=== PATIENT | male | born 1950 | race Caucasian/White ===

== ENCOUNTER 2019-07-16 12:36 | Outpatient (CLI) | payer MEDICARE, SELFPAY | END 2019-07-16 12:37 | disposition home or self-care (01) | PROVIDERS: PCP Family Medicine; Visit Provider Family Medicine | DX: H90.41 Sensorineural hearing loss, unilateral, right ear, with unrestricted hearing on the contralateral side (principal); H90.72 Mixed conductive and sensorineural hearing loss, unilateral, left ear, with unrestricted hearing on the contralateral side | CPT/HCPCS: 92557; 92567 ==

== ENCOUNTER 2019-07-23 08:30 | Outpatient (CLI) | payer MEDICARE, SELFPAY ==
[2019-07-23 17:30] LABS: Basophils Percent Auto 0.8 % (0.2-1.2); Eosinophils Absolute Auto 0.3 K/mm3 (0-0.3); Eosinophils Percent Auto 5.1 % (0-4.4); Hematocrit 42.5 % (42.0-52.0); Hemoglobin 14.2 g/dL (14.0-18.0); Immature Granulocyte Absolute 0.01 K/mm3 (0.00-0.031); Immature Granulocyte Percent A 0.2 % (0-0.5); Lymphocytes Absolute Auto 1.83 K/mm3 (0.9-3.2); Lymphocytes Percent Auto 34.3 % (18.3-44.2); Mean Corpuscular HGB Conc 33.4 g/dl (32-36); Mean Corpuscular Hemoglobin 31.7 pg (26-34); Mean Corpuscular Volume 94.9 fl (80-100); Mean Platelet Volume 10.6 fl (7.4-10.4); Monocytes Absolute Auto 0.6 K/mm3 (0.1-0.6); Monocytes Percent Auto 10.5 % (2.6-8.5); Neutrophils Absolute Auto 2.6 K/mm3 (1.3-6.7); Neutrophils Percent Auto 49.1 % (45.5-73.1); Platelet Count Result 214 k/mm3 (150-375); Red Blood Count 4.48 M/mm3 (4.6-6.20); Red Cell Distribution Width 13.2 % (11.5-14.5); White Blood Count 5.3 K/mm3 (4.5-10.0)
[2019-07-23 17:39] LABS: Alanine Aminotransferase 20 U/L (4-50); Albumin Level 4.4 g/dL (3.5-5.1); Alkaline Phosphatase 70 U/L (38-126); Aspartate Amino Transferase 20 U/L (17-59); Bilirubin,Total 0.3 mg/dL (0.2-1.3); Blood Urea Nitrogen 19 mg/dL (9-20); Calcium 9.4 mg/dL (8.4-10.2); Carbon Dioxide 26 mmol/L (22-30); Chloride 100 mmol/L (98-107); Cholesterol 145 mg/dL (0-200); Estimated Glomerular Filt Rate > 60; Glucose 122 mg/dL (75-110); HDL Direct 36 mg/dL; Potassium 4.6 mmol/L (3.4-5.0); Sodium 140 mmol/L (137-145); Triglycerides 277 mg/dL (<150)
[2019-07-23 17:50] LABS: LDL Cholesterol Direct 57 mg/dL
== END 2019-07-23 08:31 | disposition home or self-care (01) ==
LOC: ANHBWCLAB 08:34
PROVIDERS: PCP Family Medicine; Visit Provider Family Medicine
DX: H93.19 Tinnitus, unspecified ear (principal); R89.9 Unspecified abnormal finding in specimens from other organs, systems and tissues; Z79.899 Other long term (current) drug therapy
CPT/HCPCS: 36415; 80053; 80061; 85025

== ENCOUNTER 2019-09-17 08:12 | Outpatient (CLI) | payer MEDICARE, SELFPAY ==
[2019-09-17 17:36] LABS: Prostate Specific Antigen 1.1 ng/mL (< OR = 4.0)
== END 2019-09-17 08:13 | disposition home or self-care (01) ==
LOC: ANHBWCLAB 08:16
PROVIDERS: PCP Family Medicine; Visit Provider Urology
DX: R97.20 Elevated prostate specific antigen [PSA] (principal)
CPT/HCPCS: 36415; 84153

== ENCOUNTER → 2020-02-21 11:32 | Outpatient (CLI) | payer MEDICARE, SELFPAY ==
--- NOTE | ~2020-02-21 | XR_ITS ---
EXAMINATION: XR knee LT 3V EXAM DATE: 02/21/2020 11:55 INDICATION: No known recent injury provided at this time. Pain of the left knee. TECHNIQUE: Three projections of the left knee. There is no prior study for comparison. FINDINGS: No evidence osteochondral defect or joint body in the left knee joint. There is mild tric ompartmental primary osteoarthritis. There are no acute fractures or dislocations identified. There is no subcutaneous gas. There is moderate-sized joint effusion. There are no radiopaque foreign ambrose dies. IMPRESSION: 1. Moderate-sized joint effusion. 2. Mild osteoarthritis. Reviewed, dictated and finalized at location A.
== END ==
PROVIDERS: PCP Family Medicine; Visit Provider Nurse Practitioner
DX: M25.562 Pain in left knee (principal); M25.462 Effusion, left knee; M17.12 Unilateral primary osteoarthritis, left knee
CPT/HCPCS: 73562

== ENCOUNTER 2020-07-17 09:11 | Outpatient (CLI) | payer MEDICARE, SELFPAY ==
[2020-07-17 18:47] LABS: Cholesterol 183 mg/dL (0-200); HDL Direct 38 mg/dL; Triglycerides 437 mg/dL (<150)
[2020-07-17 18:59] LABS: LDL Cholesterol Direct 56 mg/dL
== END 2020-07-17 09:12 | disposition home or self-care (01) ==
LOC: ANHBWCIMG 09:11 → ANHBWCLAB 09:13
PROVIDERS: PCP Family Medicine
DX: E78.2 Mixed hyperlipidemia (principal)
CPT/HCPCS: 36415; 80061

== ENCOUNTER 2021-02-23 11:06 | Outpatient (CLI) | payer MEDICARE, SELFPAY ==
--- NOTE | ~2021-02-23 | XR_ITS ---
EXAMINATION: XR ribs BI 3V w CXR 2V EXAM DATE: 02/23/2021 12:03 INDICATION: R07.81 - Pleurodynia TECHNIQUE: Frontal projection of the upper left ribs, frontal projection of the lower left ribs, obli que projection of the left ribs. Frontal projection of the upper right ribs, frontal projection of t he lower right ribs, oblique projection of the right ribs, frontal and lateral chest x-ray(s) for in terpretation. Comparison is made to prior examination from 05/07/2019. FINDINGS: There are no displaced acute rib fractures identified. Mild cardiomegaly. There are no ost eoblastic or osteolytic lesions identified. There is lumbar fusion hardware. Mild to moderate thoraci c spondylosis. No confluent consolidation, pneumothorax or pleural effusion suspected. IMPRESSION: Unremarkable chest x-ray, rib exam. Reviewed, dictated and finalized at location B.
[2021-02-23 21:20] LABS: Hematocrit 38.8 % (42.0-52.0); Hemoglobin 13.6 g/dL (14.0-18.0); Mean Corpuscular HGB Conc 35.1 g/dl (32-36); Mean Corpuscular Hemoglobin 33.8 pg (26-34); Mean Corpuscular Volume 96.5 fl (80-100); Mean Platelet Volume 10.8 fl (7.4-10.4); Platelet Count Result 199 k/mm3 (150-375); Red Blood Count 4.02 M/mm3 (4.6-6.20); Red Cell Distribution Width 12.1 % (11.5-14.5); White Blood Count 7.3 K/mm3 (4.5-10.0)
[2021-02-23 21:25] LABS: Add Urine Microscopic? YES; Appearance Urine Clear (Clear); Bilirubin Urine Negative (Negative); Blood Urine Negative (Negative); Color Urine Yellow (Yellow); Glucose Urine UA Negative (Negative); Ketones Urine Negative (Negative); Leukocyte Esterase Ur Negative LEU/UL (NEGATIVE); Mucus Urine Rare /lpf; Nitrate Urine Negative (Negative); Protein Urine 1+ mg/dL (Negative); RBC Urine 0-2 /hpf (0-2); Specific Grav Ur 1.019 (1.001-1.035); Urobilinogen Urine Negative mg/dL (<2.0); WBC Urine 0-3 /hpf (0-3)
[2021-02-23 21:35] LABS: Alanine Aminotransferase 49 U/L (4-50); Albumin Level 4.9 g/dL (3.5-5.1); Alkaline Phosphatase 66 U/L (38-126); Anion Gap 9 mmol/L (8-16); Aspartate Amino Transferase 53 U/L (17-59); Bilirubin,Total 0.4 mg/dL (0.2-1.3); Blood Urea Nitrogen 20 mg/dL (9-20); Calcium 9.8 mg/dL (8.4-10.2); Carbon Dioxide 24 mmol/L (22-30); Chloride 106 mmol/L (98-107); Cholesterol 218 mg/dL (0-200); Estimated Glomerular Filt Rate > 60; Glucose 96 mg/dL (65-110); Potassium 4.7 mmol/L (3.4-5.0); Sodium 139 mmol/L (137-145)
[2021-02-23 21:37] LABS: Triglycerides 644 mg/dL (<150)
[2021-02-23 21:40] LABS: Hemoglobin A1C 6.2 % (<5.7)
[2021-02-23 22:00] LABS: Prostate Specific Antigen 0.7 ng/mL (< OR = 4.0)
[2021-02-23 22:13] LABS: LDL Cholesterol Direct 48 mg/dL
== END 2021-02-23 11:07 | disposition home or self-care (01) ==
PROVIDERS: PCP Family Medicine; Visit Provider Family Medicine
DX: E11.9 Type 2 diabetes mellitus without complications (principal); R97.20 Elevated prostate specific antigen [PSA]; E78.5 Hyperlipidemia, unspecified; M25.562 Pain in left knee; R07.81 Pleurodynia; Z12.5 Encounter for screening for malignant neoplasm of prostate
CPT/HCPCS: 36415; 71046; 71110; 80053; 80061; 81001; 83036; 84153; 85027; G0103

== ENCOUNTER 2021-02-23 13:33 | Outpatient (CLI) | payer MEDICARE, OTHER, SELFPAY ==
--- NOTE | ~2021-02-23 | CT_ITS ---
EXAMINATION: CT brain wo con EXAM DATE: 02/23/2021 14:03 INDICATION: R55 - Syncope and collapse. TECHNIQUE: Spiral CT of the head was performed without contrast. Axial, coronal and sagittal images were reviewed. The dose-length product (DLP) for this examination was 681.00 mGy-cm. The exposure w as tailored according to patient size, and iterative reconstruction (ASIR) was used as additional dos e reduction technique. There is no prior study for comparison. FINDINGS: There is no acute intraparenchymal hemorrhage. No evidence of intraparenchymal brain mass lesion. No evidence of acute infarction. Please note that initial head CT has limited sensitivity f or small or acute infarctions. There is mild periventricular and subcortical hypodensity, nonspecific but probably related to small vessel ischemic disease. There is intracranial carotid arteriosclero sis. There are no extra-axial collections. There is no mass effect or midline shift. Patient has h ad bilateral ocular lens surgery. Small right frontal scalp contusion. There is mild to moderate rig ht maxillary, mild left maxillary and bilateral ethmoid mucoperiosteal thickening. The mastoid air ce lls appear well aerated. IMPRESSION: 1. Small right frontal scalp contusion. 2. Chronic age related findings. Reviewed, dictated and finalized at location B.
--- NOTE | 2021-02-23 13:54 | ECG_ITS ---
Measurements Intervals [place] Rate: 65 P: 64 NV: 266 QRS: 23 QRSD: 141 T: 25 QT: 425 QTc: 444 Interpretive Statements SINUS RHYTHM WITH FIRST DEGREE AV BLOCK RIGHT BUNDLE BRANCH BLOCK ABNORMAL ECG Electronically Signed On 02-23-2021 14:40:44 CDT by Elijah Simms D.O.
== END 2021-02-23 13:34 | disposition home or self-care (01) ==
LOC: ANHIMG 13:36
PROVIDERS: PCP Family Medicine; Visit Provider Family Medicine
DX: R55 Syncope and collapse (principal); S09.90XA Unspecified injury of head, initial encounter; X58.XXXA Exposure to other specified factors, initial encounter; I45.10 Unspecified right bundle-branch block
CPT/HCPCS: 36415; 70450; 71046; 71110; 80053; 80061; 81001; 83036; 84153; 85027; 93005; G0103

== ENCOUNTER 2021-07-15 07:46 | Outpatient (CLI) | payer MEDICARE, SELFPAY ==
[2021-07-15 20:12] LABS: Triglycerides 886 mg/dL (<150)
[2021-07-15 20:14] LABS: LDL Cholesterol Direct 46 mg/dL
[2021-07-15 20:28] LABS: Hematocrit 42.3 % (42.0-52.0); Hemoglobin 14.2 g/dL (14.0-18.0); Mean Corpuscular HGB Conc 33.6 g/dl (32-36); Mean Corpuscular Hemoglobin 33.8 pg (26-34); Mean Corpuscular Volume 100.7 fl (80-100); Mean Platelet Volume 10.9 fl (7.4-10.4); Platelet Count Result 195 k/mm3 (150-375); Red Cell Distribution Width 13.2 % (11.5-14.5); White Blood Count 6.2 K/mm3 (4.5-10.0)
[2021-07-15 20:37] LABS: Cholesterol 225 mg/dL (0-200)
[2021-07-15 21:05] LABS: Hemoglobin A1C 6.3 % (<5.7)
== END 2021-07-15 07:47 | disposition home or self-care (01) ==
LOC: ANHBWCLAB 07:51
PROVIDERS: PCP Family Medicine; Visit Provider Family Medicine
DX: E11.9 Type 2 diabetes mellitus without complications (principal); M25.562 Pain in left knee; N52.9 Male erectile dysfunction, unspecified
CPT/HCPCS: 36415; 80061; 83036; 85027

== ENCOUNTER 2021-12-13 08:00 | Outpatient (CLI) | payer MEDICARE, SELFPAY ==
[2021-12-13 21:29] LABS: Hemoglobin A1C 6.1 % (<5.7)
== END 2021-12-13 08:01 | disposition home or self-care (01) ==
PROVIDERS: PCP Family Medicine; Visit Provider Family Medicine
DX: E11.9 Type 2 diabetes mellitus without complications (principal)
CPT/HCPCS: 36415; 83036

== ENCOUNTER 2022-06-13 07:22 | Outpatient (CLI) | payer MEDICARE, SELFPAY ==
[2022-06-13 21:31] LABS: Hematocrit 39.6 % (42.0-52.0); Hemoglobin 13.2 g/dL (14.0-18.0); Mean Corpuscular HGB Conc 33.3 g/dl (32-36); Mean Corpuscular Hemoglobin 32.6 pg (26-34); Mean Corpuscular Volume 97.8 fl (80-100); Mean Platelet Volume 10.9 fl (7.4-10.4); Platelet Count Result 182 k/mm3 (150-375); Red Blood Count 4.05 M/mm3 (4.6-6.20); Red Cell Distribution Width 12.5 % (11.5-14.5); White Blood Count 4.8 K/mm3 (4.5-10.0)
[2022-06-13 21:43] LABS: Triglycerides 568 mg/dL (<150)
[2022-06-13 21:45] LABS: Alanine Aminotransferase 23 U/L (6-50); Albumin Level 4.4 g/dL (3.5-5.1); Alkaline Phosphatase 79 U/L (38-126); Anion Gap 8 mmol/L (8-16); Aspartate Amino Transferase 34 U/L (17-59); Bilirubin,Total 0.3 mg/dL (0.2-1.3); Blood Urea Nitrogen 20 mg/dL (9-20); Calcium 8.9 mg/dL (8.4-10.2); Carbon Dioxide 24 mmol/L (22-30); Chloride 107 mmol/L (98-107); Cholesterol 145 mg/dL (0-200); Estimated Glomerular Filt Rate 60; Glucose 166 mg/dL (65-110); HDL Direct 26 mg/dL; LDL Cholesterol Direct 35 mg/dL; Potassium 4.4 mmol/L (3.4-5.0); Sodium 139 mmol/L (137-145)
[2022-06-13 21:46] LABS: Hemoglobin A1C 6.3 % (<5.7)
[2022-06-13 22:24] LABS: Prostate Specific Antigen 1.3 ng/mL (< OR = 4.0)
[2022-06-13 22:54] LABS: MALB Creatinine Ratio 40.8 mg/g (0-30); Microalbumin Urine Random 53.5 mg/L (0-16.7)
== END 2022-06-13 07:23 | disposition home or self-care (01) ==
PROVIDERS: PCP Family Medicine; Visit Provider Family Medicine
DX: M25.562 Pain in left knee (principal); R97.20 Elevated prostate specific antigen [PSA]; E11.9 Type 2 diabetes mellitus without complications; Z12.5 Encounter for screening for malignant neoplasm of prostate
CPT/HCPCS: 36415; 80053; 80061; 82043; 83036; 84153; 85027; G0103

== ENCOUNTER 2022-06-23 07:37 | Outpatient (CLI) | payer MEDICARE, SELFPAY ==
--- NOTE | ~2022-06-23 | CT_ITS ---
EXAMINATION: CT lung screening DATE: 06/23/2022 07:59 INDICATION: smoking TECHNIQUE: Computed tomography (CT) of the chest was performed without intravenous contrast. Addition al 3D reconstructions utilizing coronal maximum intensity projection (MIP) were performed. Automated exposure control and iterative reconstruction technique were employed. The dose-length product was 21 2.01 mGy-cm. COMPARISON: None FINDINGS: There are few bilateral scattered small pulmonary nodules, the largest measuring 4 mm in both the lef t and right upper lobes. Diffuse mild bronchial wall thickening with a few scattered mucous plugs. Th is most prominent in the basilar left lower lobe where there is associated geographic region of tree- in-bud opacities and small regions of consolidation consistent with pneumonia. No pulmonary edema or pleural effusion. Heart size is normal. Atherosclerotic coronary artery calcific location. Dual-lead cardiac pacemaker with lead tips at the apex of the right ventricle and at the right atrial appendage . Very small pericardial effusion. Thoracic aorta is normal in caliber. No pathologically enlarged th oracic lymphadenopathy. Mild bilateral gynecomastia. Small sliding-type hiatal hernia. Visualized upp er abdomen is unremarkable. Mild to moderate thoracic spondylosis. IMPRESSION: 1. Lung-RADS category 2: Benign appearance or behavior. Continue annual screening with noncontrast lo w-dose chest CT in 12 months. Reviewed, dictated and finalized at location A. TABLE ENGINEER IMPRESSION: 1. Lung-RADS category 2: Benign appearance or behavior. Continue annual screeni ng with noncontrast low-dose chest CT in 12 months.
--- NOTE | ~2022-06-23 | US_ITS ---
Ultrasound of the Abdominal Aorta INDICATION: Abdominal aortic aneurysm, nicotine dependence TECHNIQUE: Grayscale, color Doppler, and pulsed Doppler images of the aorta and common iliac arteries were obtained. COMPARISON: None. FINDINGS: Maximum vascular dimensions are as follows: Proximal aorta: 2.3 cm Mid aorta: 2.8 cm Distal aorta: 1.8 cm Right common iliac artery: 1.0 cm Left common iliac artery: 1.1 cm There is no evidence of abdominal aortic aneurysm. IMPRESSION: No aortic aneurysm. Reviewed, dictated and finalized at location M. INE PLASTER MIXER IMPRESSION: No aortic aneurysm.
== END 2022-06-23 07:38 | disposition home or self-care (01) ==
LOC: ANHIMG 07:43
PROVIDERS: PCP Family Medicine; Visit Provider Family Medicine
DX: Z12.2 Encounter for screening for malignant neoplasm of respiratory organs (principal); Z87.891 Personal history of nicotine dependence; I71.9 Aortic aneurysm of unspecified site, without rupture
CPT/HCPCS: 71271; 76775

== ENCOUNTER 2022-11-07 13:48 | Outpatient (CLI) | payer MEDICARE, SELFPAY ==
--- NOTE | ~2022-11-07 | XR_ITS ---
XR lumbar spine 2-3V DATE: 11/07/2022 15:04 INDICATION: Postoperative lumbar spine TECHNIQUE: AP, lateral and coned lateral lumbosacral views COMPARISON: 07/05/2018 CT lumbar spine since 07/05/2018 FINDINGS: Since 07/05/2018 there is postoperative change of the lumbar spine including bilateral poste rior pedicle screws and rods and interbody spinal fusion at L3-L5. There remains mild grade 1 anterolisthesis at L4-5, which was present on 07/05/2018. There is moderately severe degenerative disc disease at L1-2, moderately increased in severity since 2019. L2-3 and L5-S1 disc spaces are relatively well preserved. Included lower thoracic and lumbar pedicles appear intact. The sacral iliac joints appear normal. IMPRESSION: Status post posterior and interbody spinal fusion at L3-L5 since 2018 Reviewed, dictated and finalized at location B.
== END 2022-11-07 13:49 | disposition home or self-care (01) ==
LOC: ANHBWCIMG 13:49
PROVIDERS: PCP Family Medicine; Visit Provider Nurse Practitioner
DX: I73.9 Peripheral vascular disease, unspecified (principal); Z98.890 Other specified postprocedural states; Z98.1 Arthrodesis status
CPT/HCPCS: 72100

== ENCOUNTER 2022-12-12 08:22 | Outpatient (CLI) | payer MEDICARE, SELFPAY ==
[2022-12-12 19:31] LABS: LDL Cholesterol Direct 38 mg/dL
[2022-12-12 19:33] LABS: Creatinine Urine 279.1 mg/dL; Hemoglobin A1C 6.2 % (<5.7)
[2022-12-12 19:35] LABS: MALB Creatinine Ratio 33.4 mg/g (0-30); Microalbumin Urine Random 93.2 mg/L (0-16.7)
[2022-12-12 19:40] LABS: Anion Gap 5 mmol/L (8-16); Blood Urea Nitrogen 20 mg/dL (9-20); Calcium 9.1 mg/dL (8.4-10.2); Carbon Dioxide 27 mmol/L (22-30); Chloride 104 mmol/L (98-107); Cholesterol 234 mg/dL (0-200); Estimated Glomerular Filt Rate 60; Glucose 122 mg/dL (65-110); Potassium 4.5 mmol/L (3.4-5.0); Sodium 136 mmol/L (137-145)
[2022-12-12 19:42] LABS: Triglycerides 835 mg/dL (<150)
== END 2022-12-12 08:23 | disposition home or self-care (01) ==
LOC: ANHBWCLAB 08:27
PROVIDERS: PCP Family Medicine; Visit Provider Nurse Practitioner Adult Health
DX: E11.9 Type 2 diabetes mellitus without complications (principal)
CPT/HCPCS: 36415; 80048; 80061; 82043; 83036

== ENCOUNTER 2022-12-16 04:30 | Outpatient (CLI) | payer MEDICARE, SELFPAY ==
--- NOTE | 2022-12-05 13:17 | PC.NURSE ---
Pre Radiology instructions Report to the outpatient anabel aaron on date 12/16/22 at time _0700 for procedure Time: _0900___ YOU MAY BE MONITORED AT HOSPITAL FOR UP TO 4 HOURS AFTER YOUR PROCEDURE. A visitor will be allowed to accompany the patient into the hospital. You and your visitor will be asked to self-screen and do not enter if you have any COVID symptoms. A mask is OPTIONAL within the hospital. Patients are to have no food or drink 6 hours prior to procedure time Driving will be restricted after the procedure, you must have a person to drive you home. Labs will be drawn in preop area and once reviewed, you will be taken to radiology area for procedure. When the procedure is completed, you will be taken to outpatient where you will be monitored for several hours. You may have one visitor in this area. Other than holding anti-coagulants, patient may take other medication(s) as scheduled. Prior to your appointment date patients are instructed to hold anti-coagulants after discussing with ordering provider to stop. If unable to discontinue anti-coagulants please notify radiologist. ? No aspirin or warfarin (Coumadin) for 7 days prior to the procedure. ? No clopidogrel (Plavix), ticagrelor (Brilinta), prasugrel (Effient) or dabigatran (Pradaxa) for 5 days prior to the procedure. ? No rivaroxaban (Xarelto), apixaban (Eliquis), dipyridamole (Aggrenox or Persantine) or cilostazol (Pletal) for 2 days prior to the procedure. Medications to discontinue per physician: _ASPIRIN 7 DAYS PRIOR TO PROCEDURE Date to take last dose: ___12/08/22 Please leave all valuables, including medications, at home the day of procedure. The hospital will not accept responsibility for valuables. Wear comfortable, loose fitting clothing.? Follow any additional instructions given to you from ordering provider. Telephone instructions given to __PATIENT and asked if any additional questions and then verbalized understanding. Patient advised to call scheduling provider office or registration scheduling [phone] if any additional questions.
[2022-12-05 13:23] VITALS: BMI 35.7
--- NOTE | ~2022-12-16 | CT_ITS ---
EXAMINATION: XR myelogram spine lumbosacral, CT lumbar spine w con DATE: 12/16/2022 09:18 INDICATION: History of vertebral disc degeneration TECHNIQUE: Informed consent was obtained from the patient. Risks and benefits including bleeding, i nfection, spinal headache and nerve root injury were discussed with the patient. The patient agreed t o proceed. Time out procedure was performed. Prior CT was reviewed and central pulmonary the level o f an L4 laminectomy defect was chosen. Standard sterile prep was done with Betadine. Entry site was infiltrated with 5 cc 1% lidocaine. A 3.5 22G spinal needle was then inserted into the spinal canal . 17 mL Omnipaque 180 were then injected into the thecal sac with intrathecal administration confirm ed with intermittent fluoroscopy. Frontal, lateral and left and right oblique fluoroscopic images were then acquired. The patient was then transferred to CT scan for spiral CT of the lumbar spine. Computed tomography (CT) of the lumba r spine was performed without intravenous contrast but with intrathecal contrast. Automated exposure control and iterative reconstruction technique were employed. The dose-length product was 1354.49 mGy -cm. Following this patient was transferred to the recovery area for 2 hours of observation. There ar e no immediate complications. Coronal and sagittal reformatted images of the lumbar spine CT were als o reviewed. FINDINGS: Postoperative change of prior L4 laminectomy and instrumented L3-L5 anterior and posterior spinal fus ion with bone graft cages at both levels and bilateral vertical stacia and pedicle screw fixation. There appears be a small amount of solid osseous fusion across the L3-L4 and L4-L5 disc spaces. A layering fluid contrast level is seen within a 2.3 x 2.1 x 1.7 cm extradural likely postoperative seroma at t he laminectomy defect likely resulting from some extravasation of contrast at the site of injection. 3 mm anterolisthesis L4 on L5. One-2 mm retrolisthesis L2 on L3. Alignment is otherwise normal. Verte bral body heights are normal. Interval progression of now moderate disc height loss at L1-L2 with Estefany morl's nodes and Modic type III sclerotic endplate changes anteriorly along the inferior endplate of L1. Mild disc height loss at L2-L3. The following disc levels are specifically discussed: T11-T12: Tiny left paracentral endplate osteophyte. There is mild bilateral facet joint osteoarthriti s. There is mild left neural foraminal stenosis. There is minimal central canal stenosis. T12-L1: The disc does not extend beyond the endplate margin. There is mild bilateral facet joint oste oarthritis. There is no neural foraminal stenosis. There is no central canal stenosis. L1-L2: Disc is bulging. There is mild bilateral facet joint osteoarthritis. There is mild right and m oderate left neural foraminal stenosis. There is mild to moderate central canal stenosis measuring 9 mm AP in the mid sagittal plane. L2-L3: The disc does not extend beyond the more posterior L2 inferior endplate margin. There is moder ate bilateral facet joint osteoarthritis. There is mild bilateral neural foraminal stenosis. There is moderate central canal stenosis. L3-L4: Anterior and posterior spinal fusion with hypertrophic change at the fused bilateral facet zuhair nts. There is mild left and mild to moderate right neural foraminal stenosis. There is mild central c anal stenosis. L4-L5: Anterior and posterior spinal fusion. Posterior decompression with L4 laminectomy and resectio n of the bilateral L4 inferior articular processes. There is no neural foraminal stenosis. There is n o central canal stenosis. L5-S1: Disc is minimally bulging. There is moderate left and mild to moderate right facet joint osteo arthritis. There is mild bilateral neural foraminal stenosis. There is no central canal stenosis. IMPRESSION: 1. Interval L4 laminectomy with combined instrume
[2022-12-16 07:05] VITALS: BP 136/60; PULSE 66; RESP 16; TEMP 36.2; O2SAT 98; BMI 36.0
[2022-12-16 07:49] LABS: Mean Platelet Volume 10.2 fl (7.4-10.4); Platelet Count Result 179 k/mm3 (150-375)
[2022-12-16 08:01] LABS: Prothrombin Time 13.1 Seconds (11.1-14.7)
[2022-12-16 09:12] VITALS: BP 136/63; PULSE 68; RESP 14; O2SAT 98
[2022-12-16 09:42] VITALS: BP 119/58; PULSE 66; RESP 15; O2SAT 97
[2022-12-16 09:49] LABS: Glucose Point of Care 120 mg/dl (65-105)
[2022-12-16 10:12] VITALS: BP 119/56; PULSE 66; RESP 16; O2SAT 97
[2022-12-16 10:40] VITALS: BP 118/61; PULSE 65; RESP 14
[2022-12-16 11:10] VITALS: BP 125/54; PULSE 69; RESP 15
== END 2022-12-16 11:17 | disposition home or self-care (01) ==
LOC: ANHSURGERY 04:31
PROVIDERS: PCP Family Medicine; Visit Provider Radiology Diagnostic Radiology
DX: M51.36 Other intervertebral disc degeneration, lumbar region (principal); M47.896 Other spondylosis, lumbar region; Z98.1 Arthrodesis status
CPT/HCPCS: 36415; 62304; 72132; 82948; 85049; 85610; Q9965; Q9967

== ENCOUNTER 2023-02-01 08:25 | Outpatient (CLI) | payer MEDICARE, SELFPAY ==
[2023-02-01 19:21] LABS: Cholesterol 152 mg/dL (0-200); HDL Direct 32 mg/dL; Triglycerides 468 mg/dL (<150)
[2023-02-01 19:32] LABS: LDL Cholesterol Direct 36 mg/dL
== END 2023-02-01 08:26 | disposition home or self-care (01) ==
PROVIDERS: PCP Family Medicine; Visit Provider Nurse Practitioner Adult Health
DX: E78.5 Hyperlipidemia, unspecified (principal)
CPT/HCPCS: 36415; 80061

== ENCOUNTER 2023-06-14 09:00 | Outpatient (CLI) | payer MEDICARE, SELFPAY ==
[2023-06-14 19:34] LABS: Anion Gap 10 mmol/L (8-16); Blood Urea Nitrogen 29 mg/dL (9-20); Calcium 9.5 mg/dL (8.4-10.2); Carbon Dioxide 25 mmol/L (22-30); Chloride 107 mmol/L (98-107); Cholesterol 137 mg/dL (0-200); Estimated Glomerular Filt Rate 59; Glucose 120 mg/dL (65-110); HDL Direct 33 mg/dL; Potassium 4.6 mmol/L (3.4-5.0); Sodium 142 mmol/L (137-145); Triglycerides 444 mg/dL (<150)
[2023-06-14 19:36] LABS: Hematocrit 41.1 % (42.0-52.0); Hemoglobin 13.3 g/dL (14.0-18.0); Mean Corpuscular HGB Conc 32.4 g/dl (32-36); Mean Corpuscular Hemoglobin 32.8 pg (26-34); Mean Corpuscular Volume 101.2 fl (80-100); Mean Platelet Volume 10.5 fl (7.4-10.4); Platelet Count Result 189 k/mm3 (150-375); Red Blood Count 4.06 M/mm3 (4.6-6.20); Red Cell Distribution Width 12.5 % (11.5-14.5); White Blood Count 6.3 K/mm3 (4.5-10.0)
[2023-06-14 19:45] LABS: LDL Cholesterol Direct 35 mg/dL
[2023-06-14 20:04] LABS: MALB Creatinine Ratio 29.2 mg/g (0-30); Microalbumin Urine Random 30.9 mg/L (0-16.7)
[2023-06-14 21:14] LABS: Hemoglobin A1C 6.7 % (<5.7)
== END 2023-06-14 09:01 | disposition home or self-care (01) ==
PROVIDERS: PCP Nurse Practitioner Adult Health; Visit Provider Nurse Practitioner Adult Health
DX: E11.9 Type 2 diabetes mellitus without complications (principal); I10 Essential (primary) hypertension
CPT/HCPCS: 36415; 80048; 80061; 82043; 83036; 85027

== ENCOUNTER 2023-08-30 06:51 | Outpatient (CLI) | payer MEDICARE, SELFPAY ==
--- NOTE | 2023-08-23 14:57 | PC.NURSE ---
Pre Radiology instructions Report to the outpatient anabel aaron on date _08/30/23____ at time __0700 for procedure Time: __0900__ YOU MAY BE MONITORED AT HOSPITAL FOR UP TO 4 HOURS AFTER YOUR PROCEDURE. A visitor will be allowed to accompany the patient into the hospital. You and your visitor will be asked to self-screen and do not enter if you have any COVID symptoms. A mask is OPTIONAL within the hospital. Patients are to have no food or drink 6 hours prior to procedure time Driving will be restricted after the procedure, you must have a person to drive you home. Labs will be drawn in preop area and once reviewed, you will be taken to radiology area for procedure. When the procedure is completed, you will be taken to outpatient where you will be monitored for several hours. You may have one visitor in this area. Other than holding anti-coagulants, patient may take other medication(s) as scheduled. Prior to your appointment date patients are instructed to hold anti-coagulants after discussing with ordering provider to stop. If unable to discontinue anti-coagulants please notify radiologist. ? No aspirin or warfarin (Coumadin) for 7 days prior to the procedure. ? No clopidogrel (Plavix), ticagrelor (Brilinta), prasugrel (Effient) or dabigatran (Pradaxa) for 5 days prior to the procedure. ? No rivaroxaban (Xarelto), apixaban (Eliquis), dipyridamole (Aggrenox or Persantine) or cilostazol (Pletal) for 2 days prior to the procedure. Medications to discontinue per physician: _ASPIRIN 7 DAYS PRE OP Date to take last dose: ___08/22/23 Please leave all valuables, including medications, at home the day of procedure. The hospital will not accept responsibility for valuables. Wear comfortable, loose fitting clothing.? Follow any additional instructions given to you from ordering provider. Telephone instructions given to ___PATIENT and asked if any additional questions and then verbalized understanding. Patient advised to call scheduling provider office or registration scheduling [phone] if any additional questions.
[2023-08-23 15:02] VITALS: BMI 36.4
[2023-08-30] VITALS (8 sets, daily range): BP systolic 103–139; BP diastolic 40–71; PULSE 63–70; RESP 16–18; TEMP 36.4; O2SAT 97–99
--- NOTE | ~2023-08-30 | XR_ITS ---
EXAMINATION: CT lumbar spine w con, XR myelogram spine lumbosacral DATE: 08/30/2023 10:10 INDICATION: Lumbar intervertebral disc degeneration TECHNIQUE: Informed consent was obtained from the patient. Risks and benefits including bleeding, infection, spi nal headache and nerve root injury were discussed with the patient. The patient agreed to proceed. Ti me out procedure was performed. Prior CT was reviewed and the skin posterior to the level of an L4 la minectomy defect was chosen. Standard sterile prep was done with Betadine. Entry site was infiltrated with 5 cc 1% lidocaine. A 3.5 22G spinal needle was then inserted into the spinal canal. 17 mL Omni paque 180 were then injected into the thecal sac with intrathecal administration confirmed with inter mittent fluoroscopy. Frontal, lateral and left and right oblique fluoroscopic images were then acquired. The patient was t hen transferred to CT scan for spiral CT of the lumbar spine. Computed tomography (CT) of the lumbar spine was performed without intravenous contrast but with intrathecal contrast. Automated exposure co ntrol and iterative reconstruction technique were employed. The dose-length product was 1475.66 mGy-c m. Following this patient was transferred to the recovery area for 2 hours of observation. There are no immediate complications. Coronal and sagittal reformatted images of the lumbar spine CT were also reviewed. COMPARISON: 12/16/2022 FINDINGS: Again seen are postoperative change of prior L4 laminectomy with combined L3-L5 anterior and posterio r spinal fusion with interbody fusion devices at both levels and with bilateral vertical stacia and pedi enedina screw fixations. There appears be a small amount of solid osseous fusion across the L3-L4 and L4- L5 disc spaces and bilateral facet joints. A layering fluid contrast level is seen within the unchang ed 2.3 x 2.1 x 1.7 cm extradural likely postoperative seroma at the laminectomy defect likely resulti ng from some extravasation of contrast at the site of injection. 3 mm anterolisthesis L4 on L5. 1-2 m m retrolisthesis L2 on L3. Alignment is otherwise normal. Vertebral body heights are normal. Continue d mild interval progression of now moderate to severe disc height loss at L1-L2 with also mild progre ssion of small Schmorl's nodes and Modic type III sclerotic endplate changes anteriorly along the inf erior endplate of L1. Unchanged mild disc height loss at L2-L3. Moderate disc height loss with degene rative endplate changes at T10-T11 which was not included on the prior field of imaging. The followin g disc levels are specifically discussed: T10-T11: The disc does not extend beyond the endplate margin. There is mild bilateral facet osteoarth ritis with some heterotopic ossification along the bilateral ligamentum flavum which results in mild central canal stenosis and mild right neural foraminal stenosis. T11-T12: Tiny left paracentral endplate osteophyte. Mild left ligamentum flavum hypertrophy with hete rotopic ossification. There is mild bilateral facet joint osteoarthritis. There is mild left neural f oraminal stenosis. There is minimal central canal stenosis. T12-L1: The disc does not extend beyond the endplate margin. There is mild bilateral facet joint oste oarthritis. There is no neural foraminal stenosis. There is no central canal stenosis. L1-L2: Disc is bulging. There is mild bilateral facet joint osteoarthritis. There is moderate bilater al neural foraminal stenosis. There is mild to moderate central canal stenosis measuring 9-10 mm AP i n the mid sagittal plane. L2-L3: The disc does not extend beyond the more posterior L2 inferior endplate margin. There is moder ate bilateral facet joint osteoarthritis with prominent hypertrophic changes and some associated hete rotopic ossicles including along the bilateral ligamentum flavum. There is mild bilateral neural fora eloy stenosis. There is moderate belle
[2023-08-30 08:46] LABS: Mean Platelet Volume 10.5 fl (7.4-10.4); Platelet Count Result 179 k/mm3 (150-375)
[2023-08-30 08:47] LABS: INR 1.1; Prothrombin Time 14.3 Seconds (11.1-14.7)
[2023-08-30 10:24] LABS: Glucose Point of Care 109 mg/dl (65-105)
== END 2023-08-30 12:16 | disposition home or self-care (01) ==
PROVIDERS: PCP Nurse Practitioner Adult Health; Referring Provider Neurological Surgery; Visit Provider Radiology Diagnostic Radiology
DX: S86.912A Strain of unspecified muscle(s) and tendon(s) at lower leg level, left leg, initial encounter (principal); X58.XXXA Exposure to other specified factors, initial encounter; M51.36 Other intervertebral disc degeneration, lumbar region
CPT/HCPCS: 36415; 62304; 72132; 82948; 85049; 85610; Q9965

== ENCOUNTER 2023-09-26 08:20 | Outpatient (CLI) | payer MEDICARE, SELFPAY ==
[2023-09-26 19:30] LABS: Prostate Specific Antigen 0.9 ng/mL (< OR = 4.0)
== END 2023-09-26 08:21 | disposition home or self-care (01) ==
PROVIDERS: PCP Nurse Practitioner Adult Health; Visit Provider Nurse Practitioner Adult Health
DX: Z12.5 Encounter for screening for malignant neoplasm of prostate (principal)
CPT/HCPCS: 36415; 84153; G0103

== ENCOUNTER 2023-12-14 08:04 | Outpatient (CLI) | payer MEDICARE, SELFPAY ==
[2023-12-14 19:43] LABS: Alanine Aminotransferase 19 U/L (6-50); Albumin Level 4.8 g/dL (3.5-5.1); Alkaline Phosphatase 67 U/L (38-126); Anion Gap 12 mmol/L (4-12); Aspartate Amino Transferase 44 U/L (17-59); Bilirubin,Total 0.5 mg/dL (0.2-1.3); Blood Urea Nitrogen 29 mg/dL (9-20); Calcium 9.3 mg/dL (8.4-10.2); Carbon Dioxide 22 mmol/L (22-30); Chloride 105 mmol/L (98-107); Cholesterol 122 mg/dL (0-200); Estimated Glomerular Filt Rate 50; Glucose 222 mg/dL (65-110); HDL Direct 32 mg/dL; Potassium 4.7 mmol/L (3.4-5.0); Sodium 139 mmol/L (137-145); Triglycerides 477 mg/dL (<150)
[2023-12-14 19:54] LABS: LDL Cholesterol Direct 36 mg/dL
[2023-12-14 20:06] LABS: Basophils Absolute Auto 0.1 K/mm3 (0.0-0.1); Basophils Percent Auto 0.9 % (0.2-1.2); Eosinophils Absolute Auto 0.5 K/mm3 (0-0.3); Eosinophils Percent Auto 7.2 % (0-4.4); Hematocrit 37.8 % (42.0-52.0); Hemoglobin 12.4 g/dL (14.0-18.0); Immature Granulocyte Absolute 0.02 K/mm3 (0.00-0.031); Immature Granulocyte Percent A 0.3 % (0-0.5); Lymphocytes Absolute Auto 1.74 K/mm3 (0.9-3.2); Lymphocytes Percent Auto 26.7 % (18.3-44.2); Mean Corpuscular HGB Conc 32.8 g/dl (32-36); Mean Corpuscular Hemoglobin 32.8 pg (26-34); Mean Platelet Volume 10.6 fl (7.4-10.4); Monocytes Absolute Auto 0.8 K/mm3 (0.1-0.6); Monocytes Percent Auto 11.8 % (2.6-8.5); Neutrophils Absolute Auto 3.5 K/mm3 (1.3-6.7); Neutrophils Percent Auto 53.1 % (45.5-73.1); Platelet Count Result 196 k/mm3 (150-375); Red Blood Count 3.78 M/mm3 (4.6-6.20); Red Cell Distribution Width 12.7 % (11.5-14.5); White Blood Count 6.5 K/mm3 (4.5-10.0)
[2023-12-14 20:23] LABS: Creatinine Urine 182.9 mg/dL
[2023-12-14 20:28] LABS: MALB Creatinine Ratio 19.1 mg/g (0-30); Microalbumin Urine Random 34.9 mg/L (0-16.7)
[2023-12-14 22:30] LABS: Hemoglobin A1C 6.7 % (<5.7)
== END 2023-12-14 08:05 | disposition home or self-care (01) ==
PROVIDERS: PCP Nurse Practitioner Adult Health; Visit Provider Nurse Practitioner Adult Health
DX: E11.9 Type 2 diabetes mellitus without complications (principal); I10 Essential (primary) hypertension
CPT/HCPCS: 36415; 80053; 80061; 82043; 82565; 83036; 85025

== ENCOUNTER 2024-01-05 08:39 | Outpatient (CLI) | payer MEDICARE, SELFPAY ==
--- NOTE | 2024-01-05 08:50 | ECG_ITS ---
Test Date: 2024-01-05 09:13:18 Measurements Intervals [place] Rate: 64 P: 202 FL: 265 QRS: -70 QRSD: 158 T: 106 QT: 426 QTc: 440 Interpretive Statements SINUS RHYTHM WITH FIRST-DEGREE AV BLOCK, ATRIAL SENSING AND VENTRICULAR PACING ELECTRONIC VENTRICULAR PACEMAKER ABNORMAL RHYTHM ECG No previous ECG available for comparison Electronically Signed On 01-05-2024 11:35:06 CDT by Kin Monroy M.D.
[2024-01-05 09:56] LABS: Prothrombin Time 13.5 Seconds (11.1-14.7)
[2024-01-05 09:57] LABS: Partial Thromboplastin Time 32.8 Seconds (22.3-36.8)
[2024-01-05 10:22] LABS: Add Urine Microscopic? NO; Appearance Urine Clear (Clear); Bilirubin Urine Negative (Negative); Blood Urine Negative (Negative); Color Urine Yellow (Yellow); Glucose Urine UA 3+ mg/dL (Negative); Ketones Urine Trace mg/dL (Negative); Leukocyte Esterase Ur Negative LEU/UL (Negative); Nitrate Urine Negative (Negative); Protein Urine Negative (Negative); Specific Grav Ur 1.035 (1.001-1.035)
== END 2024-01-05 08:40 | disposition home or self-care (01) ==
PROVIDERS: PCP Nurse Practitioner Adult Health; Visit Provider Neurological Surgery
DX: M48.07 Spinal stenosis, lumbosacral region (principal); I10 Essential (primary) hypertension; Z01.818 Encounter for other preprocedural examination
CPT/HCPCS: 36415; 81003; 85610; 85730; 86850; 86900; 86901; 93005

== ENCOUNTER 2024-01-09 14:20 | Inpatient (IN) | payer MEDICARE, SELFPAY ==
--- NOTE | 2024-01-04 15:33 | PC.NURSE ---
Report to the Outpatient Waiting Room, entrance under the green pavilion located off [facility], at time _8:00AM on date __01/09/24 . Planned Procedure Time: __1000 . Time changes happen often and if your time is changed the preop area will call you the afternoon before. - You and your visitor will be asked to self-screen and do not enter if you have any COVID symptoms. - A mask is optional within the hospital at this time. Patients may have clear liquids (water, carbonated beverages, clear teas, apple juice) until 3 hours prior to surgery(7:00AM) with a maximum of 20 ounces. - No food from midnight until time of surgery - Infants may have breast milk until 4 hours before surgery, infant formula 6 hours prior to surgery. - Children will be allowed to drink immediately following surgery. If applicable, please bring a bottle or sippy cup to assist with drinking. Juice, water, soda, and popsicles are readily available. For infants on formula, please bring formula the day of surgery. Pacifiers are allowed. Take the following medications with a SIP of water the morning of surgery: ____AMLODIPINE,CARVEDILOL DO NOT STOP ANY OF YOUR OTHER PRESCRIPTION MEDICATIONS PRIOR TO SURGERY ?EXCEPT THE FOLLOWING Medications to discontinue per physician ____PT STATES LAST DOSE ASPIRIN 01/01/24 PER PT . PT TO CALL DR NORTH REGARDING MELOXICAM____ Please no make-up, nail togolese, hairspray, perfume, deodorant, or body powder the day of surgery. No jewelry (including any body piercings) or valuables the day of surgery, leave them at home. Please take a shower or bath the night before, or the morning of, surgery with an antibacterial soap. Wear comfortable, loose fitting clothing. Children are encouraged to wear pajamas. - Jewelry must be removed prior to entering the operating room. Rings and piercings that are not removed may be cut off. - The hospital will not accept responsibility for valuables. - Please leave all valuables, including medications, at home the day of surgery. If you are going home after surgery, a licensed lyft driver must drive you home. - NO public transportation without another adult if you receive anesthesia. - We recommend that an adult stay with you for 24 hours following discharge. - We also recommend that you do not drive, make important decision, drink alcoholic beverages, or take any drugs that were not prescribed by your health care provider for at least 24 hours after your discharge time. For Pediatric surgeries, we recommend two adults accompany the child home. Follow any additional instructions given to you from your surgeon. If you or anyone in your household have experienced Covid symptoms in the past week, please notify your surgeon or the nurse liaison at the phone number below for possible testing. Telephone instructions given to __PATIENT and asked if any additional questions and then verbalized understanding. Patient advised to call surgeon office or pre surgery nurse liaison [phone] if any additional questions.
[2024-01-04 15:48] VITALS: BMI 35.9
[2024-01-09] VITALS (14 sets, daily range): BP systolic 107–152; BP diastolic 56–93; PULSE 62–82; RESP 14–18; TEMP 36.1–36.7; O2SAT 97–100; BMI 36.0
--- NOTE | ~2024-01-09 | XR_ITS ---
EXAMINATION: XR fluoroscopy no charge DATE: 01/09/2024 10:30 CDT INDICATION: L2-3 POSTERIOR LUMBAR INTERBODY FUSION, REVISION . TECHNIQUE: 3 fluoroscopic images of the lumbar spine were obtained during L2-3 posterior lumbar inter body fusion, revision, performed by Nelson aMrion MD. I was not present during the procedure. Fl uoroscopy exposure time was 3.8 seconds. Air Kerma 3.8180 mGy. DAP 0.0757 mGym2. COMPARISON: None FINDINGS/IMPRESSION: Fluoroscopic documentation of L2-3 posterior lumbar interbody fusion, revision. Please refer to the o perative note for complete procedural details . Reviewed, dictated and finalized at location K.
[2024-01-09 08:18] LABS: Glucose Point of Care 166 mg/dl (65-105)
--- NOTE | 2024-01-09 09:37 | WPDANESEPPF ---
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 Patient Data Age: 73 Gender: M Height: 1.75 m Weight: 110.6 kg Last Vital Signs Temp 36.1 C L 01/09/24 08:42 Pulse 68 01/09/24 08:42 Resp 18 01/09/24 08:42 BP 140/79 01/09/24 08:42 Pulse Ox 100 01/09/24 08:42 Allergies Allergy/AdvReac Type Severity Reaction Status Date / Time No Known Allergies Allergy Verified 01/09/24 08:33 Home Medications Medication Instructions Recorded Confirmed Type aspirin 81 mg tablet,delayed 81 mg PO DAILY 04/23/19 01/04/24 History release (Adult Low Dose Aspirin) blood sugar diagnostic (Contour #100 ea 10/29/20 12/14/23 Rx Next Test Strips) icosapent ethyl 1 gram capsule 2 g PO BID #120 caps 08/12/21 01/04/24 Rx (Vascepa) rosuvastatin 20 mg tablet See Rx Instructions .Route 03/23/23 01/04/24 Rx .COMPLEX #90 tabs hydrochlorothiazide 25 mg tablet See Rx Instructions .Route 05/11/23 01/04/24 Rx .COMPLEX #90 tabs lisinopril 40 mg tablet See Rx Instructions .Route 08/16/23 01/04/24 Rx .COMPLEX #90 tabs amlodipine 10 mg tablet 10 mg PO DAILY #90 tabs 10/10/23 01/04/24 Rx carvedilol 25 mg tablet 25 mg PO Q12H #180 tabs 10/10/23 01/04/24 Rx loratadine 10 mg tablet 10 mg PO DAILY #90 tabs 10/10/23 01/04/24 Rx metformin 500 mg tablet,extended See Rx Instructions .Route 11/06/23 01/04/24 Rx release 24 hr .COMPLEX #270 tabs meloxicam 15 mg tablet See Rx Instructions .Route 12/26/23 01/04/24 Rx .COMPLEX #90 tabs Laboratory Tests 01/09/24 08:15 POC Capillary Glucose 166 H mg/dl (65-105) Patient hx anesthesia problems: none Family hx anesthesia problems: none Results Review: All pre-operative results and documents have been reviewed as part of the pre-operative evaluation. [facility] Past Medical History Medical History (Updated 01/09/24 @ 09:38 by Spike Denson MD) Aorta aneurysm Diabetes Dyslipidemia Elevated PSA Hypertension Obesity Pacemaker Tinnitus Surgical History Surgical History History of back surgery Family History Family History Mother Breast cancer Cancer of unknown origin Grandparent Diabetes mellitus Sibling Diabetes mellitus Mother Family history of malignant neoplasm of uterus Family history of malignant neoplasm of breast in first degree relative Social History Social History Social History: Caffeine- occasionally coffee, tea Smoking packs per day: 0.5 Smoking cigarettes per day: 10.0 Years smoked: 50 Smoking pack-years: 25.00 Smoking status: Former smoker Tobacco type: cigarettes Second hand tobacco smoke exposure: No Smoking end date: 09/04/23 Alcohol intake: current Drinks per week: 1 Alcohol use details: monthly Substance use: never Substance use type: does not use Do You Feel Safe in your Home?: Yes Lack of Transportation: No Lack of Food: Never True Current Housing: I Have Housing Concerned About Future Housing: No Difficulty Paying Gas/Electric Bills: No Difficulty Paying for Meds: No Currently Unemployed: No Education: Don't Know Difficulty w/ Childcare or Family Care: No Living arrangements: with family Spiritual care concerns: No Anes - Eval Final PreProcedure Day of Procedure 01/09/24 09:37 Patient weight: obese Heart: regular rate and rhythm Lungs: clear to auscultation Airway: Mallampati scale class II Neurological: alert and oriented Last oral intake: >/= 8 hours ASA classification: IV Emergent: no Anesthet
[2024-01-09] MEDS: LACTATED RINGERS 1,000 ML 30 ML IV CONT (09:40)
--- NOTE | 2024-01-09 09:56 | PM.IMHP ---
H&P: HPI History of Present Illness Date/Time: 01/09/24 09:56 Chief Complaint: Back and leg pain Narrative: Musa is a 73-year-old gentleman who has pain in his low back that radiates down his right leg to the ankle. The pain is there basically all the time regardless of what he is doing but he states that the pain gets worse if he walks for a while and is relieved a little bit when he sits down, though the pain never completely goes away. His walking is limited by the discomfort; that is, he is not able to walk as far as he wants and instead states that he can't walk very far before the pain becomes too severe and he has to sit down and rest. He does not notice any specific muscle group weakness or dermatomal numbness in either lower extremity or anywhere else. He reports a history of a previous back operation which was done in [address] Rajesh Tay (Orthopedic Spine Surgery) at [facility] about 5-6 years ago. This surgery was helpful for him for a couple of years but the pain has since returned and is progressive. He does not recall a specific inciting event such as a fall or injury. He has seen a appliance painter and refinisher, specifically Dr. Sarahy Xie. He has seen Dr. Xie and undergone a right transforaminal epidural steroid injection at L5-S1.? He states that this gave him 70% relief for about 3 days.? His discomfort had since returned to its normal level.? He was functional but with discomfort.? He does seem to be worse if he has been standing for a long time or walking for distance.? Stationary standing especially at a counter seems to be the most provocation.? Since we saw him last he has experienced a fall.? This has resulted in increased pain in his back and his right lower extremity but now also extending to the left lower extremity.? The pain is worse and in different areas than it was before.? He does not report new specific muscle group weakness or dermatomal numbness or any new bowel or bladder difficulties. Review of Systems Review of Systems: Const Details: Const Details: Const Details: Const All systems reviewed & are unremarkable except as noted in HPI and below Denies chills, Denies fever(s), Denies frequent falls, Denies weakness, Denies weight gain and Denies weight loss Eyes Denies change in vision and Denies diplopia ENT Denies disequilibrium Card Denies chest pain and Denies dyspnea Resp Denies cough and Denies dyspnea GI Denies abdominal pain, Denies change in bowel habits, Denies fecal incontinence and Denies vomiting Denies hematuria, Denies oliguria, Denies difficulty urinating, Denies dysuria, Denies urinary frequency, Denies urinary hesitancy, Denies urinary incontinence and Denies urinary urgency Musc Reports as per HPI, Reports back pain, Denies muscle weakness, Denies numbness and Denies tingling Skin/ Breast Reports system reviewed and no additional complaints, except as documented Neuro Reports as per HPI, Denies frequent falls, Denies focal weakness, Denies numbness, Reports radicular pain, Denies tingling, Denies disequilibrium and Denies weakness Psych Reports no additional complaints, Denies depression and Denies hopelessness Endo Reports no additional complaints and Denies polyuria Stefan/ Lymph Reports no additional complaints Aller/ Immun Reports no additional complaints PMFSH Past Medical History Medical History (Updated 01/09/24 @ 09:38 by Spike Denson MD) Aorta aneurysm Diabetes Dyslipidemia Elevated PSA Hypertension Obesity Pacemaker Tinnitus Surgical History Surgical History History of back surgery Family History Family History Mother Breast cancer Cancer of unknown origin Grandparent Diabetes mellitus Sibling Diabetes mellitus Mother Family history of malignant neoplasm of uterus Fa
--- NOTE | 2024-01-09 09:59 | WPDHPUPDATE1 ---
History and Physical Update Update Date/Time: 01/09/24 09:59 History and Physical has been reviewed, including an updated exam of the patient. There are NO changes in the patient's condition. Risks, benefits, and alternatives have been discussed and questions answered. Patient agrees to proceed with procedure.
[2024-01-09] MEDS: ceFAZolin 2 GM/D5W 50 ML 2 GM/50 ML BAG IVPB (10:04)
[2024-01-09] MEDS: LIDO 1%/EPINEPHRINE 1:100,000 20 ML VIAL INFILTRATE (10:40)
[2024-01-09 13:18] LABS: Glucose Point of Care 201 mg/dl (65-105)
--- NOTE | 2024-01-09 13:21 | W.PM.PROC2 ---
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 He was then turned into the prone position on a Danilo frame. There operation on his back was examined, marked for incision, prepped and draped in routine sterile fashion. Incision was marked over the L2-5 spinous processes in the midline. This area was injected with 0.5% lidocaine with [id number] epinephrine. Intravenous antibiotics given prior to incision. Incision was made with a 10 blade scalpel down to the lumbodorsal fascia. A subperiosteal dissection of the muscle soft tissue away from spinous process lamina at L2-3 was performed with a subperiosteal elevator and Bovie cautery. Bovie cautery was used to uncover the instrumentation at L3 and L4 and the stacia in between. A verifying x-rays obtained to verify the level of operation. The L2 spinous process was removed with the Carmella rongeur. Kerrison punches, curved curette and a Leksell rongeur were used to remove lamina midline into the soft contents of the canal were encountered. Midas-Sudarshan drill was used to resect the pars bilaterally. The inferior articular process and facet of L2 could then be removed bilaterally. The spaces spinous process for free of soft tissue and morselized for later use as interbody autograft. Kerrison punches and curved curettes were used to define a plane with the dura and removed bone ligament flush with the pedicles and through the foramina widely decompressing the exiting nerve roots as well as the traversing nerve roots. To with the thecal sac retracted and protected the disc space was entered bilaterally using an 11 blade scalpel. Scrapers a very sizes, curettes a Veress configurations, pituitary rongeur and a rasp were used to remove as much cartilaginous endplate and disc material as possible down to bleeding cortical flat surfaces on the opposing bones. The disc space was incised and 14 mm interbody devices were chosen and filled with local autograft bone. The disc space was likewise filled with local autograft bone medially and anteriorly. The interbody devices were then placed with 2-3 mm countersink within the disc space bilaterally. Pedicle screw instrumentation was performed at L2 by observing and palpating the pedicle ankle was made and superior articular process above the pedicle using Midas Sudarshan drill. The pedicle was then cannulated with a pedicle probe, checked for continuity with ball probe, tapped with a 5.5 mm tap and 6.5 x 50 mm screw was placed in each pedicle. Lateral connectors were placed on the stacia between L3 and L4. 65 mm rods were placed between the lateral connector and the new L2 pedicle screw and secured position using the appropriate caps. These were definitively tightened with a torque and anti torque device. A verifying x-rays obtained to verify good position of the instrumentation which was confirmed. The wound was then copiously irrigated with bacitracin irrigation all bleeding stopped with bipolar cautery. A medium Hemovac drain was left in the subfascial position buried up to the inferior right of the incision. The wound was then closed in layered fashion with 2-0 Vicryl interrupted sutures in the lumbodorsal fascia and Tung's layer. 3-0 Vicryl buried interrupted sutures were placed in the dermis and skin was closed with a running 4-0 Monocryl subcuticular stitch and dressed with Dermabond. The patient was loud wake up in the operating r
[2024-01-09] MEDS: fentaNYL CITRATE INJ (*CRX) 100 MCG/2 ML VIAL 25 MCG IV PUSH ×2 (13:38→13:50)
--- NOTE | 2024-01-09 14:34 | PC.NURSE ---
This patient, Musa Amaya Sr., was admitted to Medical Room 255-01. Patient/family oriented to hospital policies and general routines including ID bracelet, bed and alarms, visiting hours, pain management, procedures, bathroom and other care routines, personal items, smoking policy, room service/diet, and visiting hours. Information on how to activate the Rapid Response Team has been discussed. Patient/Family are encouraged to report perceived risks to care and to ask questions if they do not understand what they are told or what they should do.
[2024-01-09] MEDS: HYDROcodone/acetaminophen (*CRX) 5-325 MG TABLET 1 TAB PO (16:56)
[2024-01-09] MEDS: OMEGA 3 POLYUNSAT FATTY ACIDS 1 GM CAP 2 GM PO (16:56)
[2024-01-09] MEDS: metFORMIN HCL XR 500 MG TAB.SR.24H 1000 MG PO (16:56)
[2024-01-09] MEDS: ceFAZolin 1 GM/NS 50 ML 1 GM/50 ML BAG IVPB (17:02)
[2024-01-09] MEDS: HYDROcodone/acetaminophen (*CRX) 10-325 MG TABLET 1 TAB PO (20:35)
[2024-01-09] MEDS: carvediloL 25 MG TABLET PO (20:36)
[2024-01-09] MEDS: DOCUSATE SODIUM 100 MG CAPSULE PO (20:36)
[2024-01-10 00:56] VITALS: BP 153/60; PULSE 68; RESP 18; TEMP 36.6; O2SAT 99
[2024-01-10] MEDS: ceFAZolin 1 GM/NS 50 ML 1 GM/50 ML BAG IVPB ×2 (01:11→09:08)
[2024-01-10 02:33] VITALS: PULSE 78; O2SAT 96
[2024-01-10 04:53] VITALS: BP 153/63; PULSE 78; RESP 18; TEMP 36.4; O2SAT 98
[2024-01-10] MEDS: HYDROcodone/acetaminophen (*CRX) 10-325 MG TABLET 1 TAB PO (08:05)
[2024-01-10 08:06] VITALS: PULSE 80
[2024-01-10] MEDS: carvediloL 25 MG TABLET PO (08:06)
[2024-01-10] MEDS: DOCUSATE SODIUM 100 MG CAPSULE PO (08:06)
[2024-01-10] MEDS: ROSUVASTATIN 20 MG TABLET BY MOUTH (08:06)
[2024-01-10] MEDS: LORATADINE 10 MG TABLET PO (08:06)
[2024-01-10] MEDS: OMEGA 3 POLYUNSAT FATTY ACIDS 1 GM CAP 2 GM PO (08:06)
[2024-01-10] MEDS: lisinopriL 20 MG TABLET 40 MG BY MOUTH (08:07)
[2024-01-10] MEDS: amLODIPine BESYLATE 10 MG TABLET PO (08:07)
[2024-01-10] MEDS: hydroCHLOROthiazide 25 MG TABLET BY MOUTH (08:07)
[2024-01-10] MEDS: metFORMIN HCL XR 500 MG TAB.SR.24H BY MOUTH (08:07)
--- NOTE | 2024-01-10 10:08 | WPDNEUROSGPN ---
Progress Note: A&P Assessment and Plan (1) Status post lumbar spinal fusion: Code(s): Z98.1 - Arthrodesis status Status: Acute Plan -Remove hemovac drain -Discharge home today -Follow up with Dr. Marion as scheduled Subjective Date/time seen: 01/10/24 10:08 Interval history: Doing very well today with some back stiffness but no significant pain. Denies pain or paresthesias in legs. Ambulating halls. Voiding independently. He wants to go home today. Review of Systems Review of Systems: All systems reviewed & are unremarkable except as noted in HPI and below Exam Narrative: AOx4 Full strength in lower extremities Sensation intact Dressing c/d/i Objective Data Vital Signs Vital Signs: Vital Signs - 24 hr 01/09/24 13:09 01/09/24 13:20 01/09/24 13:35 Temperature 97.4 F L Pulse Rate 70 68 68 Respiratory Rate 16 16 16 Blood Pressure 143/72 H 131/73 107/93 H Pulse Oximetry 100 100 100 Oxygen Delivery Simple Face Mask Simple Face Mask Room Air Oxygen Flow Rate 8 8 01/09/24 13:50 01/09/24 14:05 01/09/24 14:13 Temperature 97.4 F L Pulse Rate 78 68 66 Respiratory Rate 18 14 18 Blood Pressure 131/71 141/63 H 127/66 Pulse Oximetry 100 97 98 Oxygen Delivery Room Air Room Air Room Air Oxygen Flow Rate 01/09/24 14:40 01/09/24 14:55 01/09/24 15:05 Temperature 97.5 F L 97.7 F 98.0 F Pulse Rate 66 65 62 Respiratory Rate 16 17 16 Blood Pressure 140/60 138/56 L 130/61 Pulse Oximetry 98 98 98 Oxygen Delivery Oxygen Flow Rate 01/09/24 16:20 01/09/24 20:36 01/09/24 20:43 Temperature 97.8 F 97.8 F Pulse Rate 72 73 76 Respiratory Rate 17 18 Blood Pressure 141/63 H 152/59 H Pulse Oximetry 98 98 Oxygen Delivery Oxygen Flow Rate 01/09/24 21:30 01/10/24 00:56 01/09/24 20:18 Temperature 97.8 F Pulse Rate 82 68 Respiratory Rate 18 Blood Pressure 153/60 H Pulse Oximetry 97 99 Oxygen Delivery CPAP Room Air Oxygen Flow Rate 01/10/24 04:53 01/10/24 02:33 01/10/24 07:44 Temperature 97.5 F L Pulse Rate 78 78 Respiratory Rate 18 Blood Pressure 153/63 H Pulse Oximetry 98 96 Oxygen Delivery CPAP Room Air Oxygen Flow Rate 01/10/24 08:06 01/10/24 08:26 01/10/24 08:44 Temperature Pulse Rate 80 Respiratory Rate Blood Pressure Pulse Oximetry Oxygen Delivery Room Air CPAP Oxygen Flow Rate Intake/Output Intake/Output: Intake & Output 01/07/24 01/08/24 01/09/24 01/10/24 23:59 23:59 23:59 23:59 Intake Total 2940 50 Output Total 415 1390 Balance 2525 -7450 Meds/Results Medications: Active Medications Generic Name Dose Route Start Last Admin Trade Name Freq PRN Reason Stop Dose Admin Hydrocodone Bitart/Acetaminophen 1 tab 01/09/24 14:20 01/09/24 16:56 Hydrocodone/Acetaminophen (*Crx) 5-325 Mg Tablet PO 1 tab Q4H PRN Administration Mild Pain (1-3) Hydrocodone Bitart/Acetaminophen 1 tab 01/09/24 14:20 01/10/24 08:05 Hydrocodone/Acetaminophen (*Crx) 10-325 Mg Tablet PO 1 tab Q4H PRN Administration Moderate Pain (4-6) Al Hydrox/Mg Hydrox/Simethicone 20 ml 01/09/24 14:20 Mag Hydrox/Al Hydrox/Simeth 30 Ml Udc PO Q4H PRN Indigestion/Heartburn Amlodipine Besylate 10 mg 01/10/24 09:00 01/10/24 08:07 Amlodipine Besylate 10 Mg Tablet PO 10 mg DAILY LISA Administration Bisacodyl 10 mg 01/09/24 14:20 Bisacodyl 10 Mg Suppository RECTAL DAILY PRN Constipation Carvedilol 25 mg 01/09/24 21:00 01/10/24 08:06 Carvedilol 25 Mg Tablet PO 25 mg Q12HR LISA Administration Cyclobenzaprine HCl 10 mg 01/09/24 14:20 Cyclobenzaprine Hcl 10 Mg Tablet PO TID PRN Muscle Spasms Docusate Sodium 100 mg 01/09/24 21:00 01/10/24 08:06 Docusate Sodium 100 Mg Capsule PO 100 mg Q12HR LISA Administration Fish Oil 2 gm 01/09/24 17:00 01/10/24 08:06 [place] 3 Polyunsat Fatty Acids 1 Gm Cap PO 2 gm BID LIAS
--- NOTE | 2024-01-10 11:38 | WPDANESPN ---
Anes - Prog Note Post-Op Date/Time: 01/10/24 11:38 Cardiovascular status: normal Respiratory status: normal Airway patency: baseline Mental status: baseline Post-Op hydration status: normal Vital Signs: Last Vital Signs Temp 36.4 C L 01/10/24 04:53 Pulse 80 01/10/24 08:06 Resp 18 01/10/24 04:53 BP 153/63 H 01/10/24 04:53 Pulse Ox 98 01/10/24 04:53 O2 Del Method CPAP 01/10/24 08:44 O2 Flow Rate 8 01/09/24 13:20 Pain Score (VAS): 0 I/O: Intake & Output 01/09/24 01/10/24 01/10/24 23:59 07:59 15:59 Intake Total 290 50 360 Output Total 80 1390 Balance 210 -1340 360 01/09/24 13:14 POC Capillary Glucose 201 H Post-procedural complaints: none Patient Feedback: Patient satisfied with anesthetic care.
== END 2024-01-10 12:24 | disposition home or self-care (01) | DRG 460 ==
LOC: ANH2MED 01-10 10:07
PROVIDERS: Admitting Provider Neurological Surgery; PCP Nurse Practitioner Adult Health; Visit Provider Neurological Surgery
PROC: 0SG00AJ Fusion of Lumbar Vertebral Joint with Interbody Fusion Device, Posterior Approach, Anterior Column, Open Approach (ICD-10-PCS; CPT 22612; principal; 2024-01-09 10:00)
DX: M48.061 Spinal stenosis, lumbar region without neurogenic claudication (principal); I10 Essential (primary) hypertension; E78.5 Hyperlipidemia, unspecified; E11.9 Type 2 diabetes mellitus without complications; I71.9 Aortic aneurysm of unspecified site, without rupture; E66.9 Obesity, unspecified; Z68.36 Body mass index [BMI] 36.0-36.9, adult; Z95.0 Presence of cardiac pacemaker; Z87.891 Personal history of nicotine dependence; Z79.82 Long term (current) use of aspirin; Z79.84 Long term (current) use of oral hypoglycemic drugs
CPT/HCPCS: 22853; 22630; 22840; 20936; 82948; 97161; 97165; 97535; 99199; A9270; C1713; J0330; J0690; J1100; J2405; J2704; J3010; J7120

== ENCOUNTER 2024-02-12 10:46 | Outpatient (CLI) | payer MEDICARE, SELFPAY ==
--- NOTE | ~2024-02-12 | XR_ITS ---
3 VIEWS LUMBAR SPINE Ordering provider: Nelson Marion MD History: . M47.816 - Spondylosis without myelopathy or radiculopathy... . Comparison: December 16, 2022 FINDINGS: VERTEBRAL BODIES: No visible fracture or subluxation. Postoperative changes for fixation extending fr om L2 to L5. DISK SPACES: Disc spacers seen at the levels of L2-L3, L3-L4 and L4-L5. SOFT TISSUES: Cholelithiasis. Narrowing of the sacroiliac joints bilaterally. IMPRESSION: No acute osseous abnormality lumbar spine. Postoperative changes. Reviewed, dictated and finalized at location A.
== END 2024-02-12 10:47 | disposition home or self-care (01) ==
LOC: ANHIMG 10:49
PROVIDERS: PCP Nurse Practitioner Adult Health; Visit Provider Neurological Surgery
DX: M47.816 Spondylosis without myelopathy or radiculopathy, lumbar region (principal)
CPT/HCPCS: 72100

== ENCOUNTER 2024-02-27 13:08 | Outpatient (CLI) | payer MEDICARE, SELFPAY ==
[2024-02-27 19:51] LABS: Alanine Aminotransferase 17 U/L (6-50); Aspartate Amino Transferase 38 U/L (17-59)
== END 2024-02-27 13:09 | disposition home or self-care (01) ==
PROVIDERS: PCP Nurse Practitioner Adult Health; Visit Provider Podiatrist Foot & Ankle Surgery
DX: B35.1 Tinea unguium (principal)
CPT/HCPCS: 36415; 84450; 84460

== ENCOUNTER 2024-03-11 13:35 | Emergency (ER) | payer MEDICARE, SELFPAY ==
--- NOTE | ~2024-03-11 | CT_ITS ---
EXAMINATION: CT pelvis wo con DATE: 03/11/2024 15:20 INDICATION: Left hip pain. Fall. TECHNIQUE: Computed tomography (CT) of the pelvis was performed without intravenous contrast. Automat ed exposure control and iterative reconstruction technique were employed. The dose-length product was 834.37 mGy-cm. COMPARISON: None FINDINGS: There are no dilated loops of bowel. There are bilateral inguinal hernias containing fat. P artially visualized are changes of anterior and posterior fusion procedures at L3-L4 and L4-L5 with i nterbody devices and pedicle screws. There is mild lower lumbar spondylosis. There is mild osteoarthr itis of the hips. IMPRESSION: 1. No fracture. 2. Mild osteoarthritis of the hips. Reviewed, dictated and finalized at location A.
--- NOTE | ~2024-03-11 | CT_ITS ---
EXAMINATION: CT lumbar spine wo con DATE: 03/11/2024 15:20 INDICATION: Low back pain. Recent fall. TECHNIQUE: Computed tomography (CT) of the lumbar spine was performed without intravenous contrast. A utomated exposure control and iterative reconstruction technique were employed. The dose-length produ ct was 1251.72 mGy-cm. COMPARISON: CT lumbar spine 08/30/2023 FINDINGS: There is 3 mm anterolisthesis of L4 on L5. Vertebral body heights are normal. There is mode rately decreased disc height at L1-L2. There are changes of anterior posterior fusion procedures from L2 to L5 with interbody devices and pedicle screws. The following disc levels are specifically discu ssed: L1-L2: The disc is bulging. There is mild right and moderate left facet joint osteoarthritis. There i s mild bilateral neural foraminal stenosis. There is mild central canal stenosis. L2-L3: There is no facet joint hypertrophy. There is no neural foraminal stenosis. There is no centra l canal stenosis. There are changes of posterior decompression. L3-L4: There is mild bilateral facet joint hypertrophy. There is mild bilateral neural foraminal sten osis. There is mild central canal stenosis. L4-L5: There is no facet joint hypertrophy. There is no neural foraminal stenosis. There is no centra l canal stenosis. There is posterior decompression. L5-S1: The disc is bulging. There is severe bilateral facet joint osteoarthritis. There is mild bilat eral neural foraminal stenosis. There is mild central canal stenosis. IMPRESSION: 1. Moderate thoracic spondylosis. 2. Anterior and posterior fusion procedures from L2 to L5. Reviewed, dictated and finalized at location A.
[2024-03-11 13:37] VITALS: BP 175/65; PULSE 78; RESP 20; TEMP 36.1; O2SAT 99
--- NOTE | 2024-03-11 14:29 | ED.LOWEXIN ---
HPI - Extremity Injury (Lower) General Chief Complaint: Extremity Injury, Lower <Esthela Bolton PA-C - Last Filed: 03/11/24 14:40> Stated Complaint: L hip pain <Esthela Bolton PA-C - Last Filed: 03/11/24 14:40> Time Seen by Provider: 03/11/24 14:29 <DAVID Hyatt Last Filed: 03/11/24 14:40> Focused HPI: Patient is a 73 y/o male who presents to the ED with c/o L hip/lower back pain. Patient reports he had lumbar spinal fusion on 01/[address] Marion. States he has been doing well since then, but fell off a rolling stool in his garage 2-3 weeks ago. Since then, he has been having worsening pain in his L hip and L lower back. Has been taking Tylenol for the pain with some improvement. Denies radiation of pain down LLE. Denies bowel or bladder incontinence, saddle anesthesia, weakness, numbness. GENERAL: Elderly, obese with BMI of 37.2, and in no acute distress. HEAD: Normocephalic, atraumatic. CHEST: Clear to auscultation. ?No respiratory distress. HEART: Regular rate and rhythm.? MSK: Focal TTP in L lumbosacral region/SI joint. No midline spinal tenderness throughout lumbar region. Midline surgical scar appears to be healing well. No surrounding swelling, erythema, fluctuance. NEURO: ?Alert and oriented x3. Patient screened in triage and initial orders placed.? ?Additional care and disposition to be based upon?diagnostic testing and treatment. <Esthela Bolton PA-C - Last Filed: 03/11/24 14:40> Source: patient <DAVID Hyatt Last Filed: 03/11/24 14:40> Mode of arrival: ambulatory <Esthela Bolton PA-C - Last Filed: 03/11/24 14:40> Limitations: no limitations <DAVDI Hyatt Last Filed: 03/11/24 14:40> History of Present Illness HPI Narrative: Agree with HPI <Albaro aDwn MD - Last Filed: 03/11/24 16:04> Related Data Home Medications: Home Medications Medication Instructions Recorded Confirmed aspirin 81 mg tablet,delayed 81 mg PO DAILY 04/23/19 02/12/24 release (Adult Low Dose Aspirin) <Esthela Bolton PA-C - Last Filed: 03/11/24 14:40> Allergies/Adverse Reactions: Allergies Allergy/AdvReac Type Severity Reaction Status Date / Time No Known Allergies Allergy Verified 03/11/24 14:56 <Esthela Bolton PA-C - Last Filed: 03/11/24 14:40> [facility] Past Medical History Medical History: Medical History Aorta aneurysm Diabetes Dyslipidemia Elevated PSA Hypertension Obesity Pacemaker Tinnitus <Esthela Bolton PA-C - Last Filed: 03/11/24 14:40> Surgical History Surgical History: Surgical History History of back surgery <Esthela Bolton PA-C - Last Filed: 03/11/24 14:40> Family History Family History: Family History Mother Breast cancer Cancer of unknown origin Grandparent Diabetes mellitus Sibling Diabetes mellitus Mother Family history of malignant neoplasm of uterus Family history of malignant neoplasm of breast in first degree relative <DAVID Hyatt Last Filed: 03/11/24 14:40> Social History Social History: Social History Social History: Caffeine- occasionally coffee, tea Smoking packs per day: 0.5 Smoking cigarettes per day: 10.0 Years smoked: 50 Smoking pack-years: 25.00 Smoking status: Former smoker Tobacco type: cigarettes Second hand tobacco smoke exposure: No Alcohol intake: current Drinks per week: 1 Alcohol use details: monthly Substance use: never Substance use type: does not use Do You Feel Safe in your Home?: Yes Lack of Transportation: No Lack of Food: Never True Current Housing: I Have Housing
[2024-03-11] MEDS: ACETAMINOPHEN 500 MG TABLET 1000 MG PO (14:36)
== END 2024-03-11 16:32 | disposition home or self-care (01) ==
PROVIDERS: Emergency Provider Emergency Medicine; PCP Nurse Practitioner Adult Health
DX: S39.92XA Unspecified injury of lower back, initial encounter (principal); I10 Essential (primary) hypertension; E78.5 Hyperlipidemia, unspecified; E11.9 Type 2 diabetes mellitus without complications; E66.9 Obesity, unspecified; Z68.37 Body mass index [BMI] 37.0-37.9, adult; Z98.1 Arthrodesis status; Z95.0 Presence of cardiac pacemaker; Z87.891 Personal history of nicotine dependence; M16.0 Bilateral primary osteoarthritis of hip; M47.814 Spondylosis without myelopathy or radiculopathy, thoracic region; W17.89XA Other fall from one level to another, initial encounter; Z79.82 Long term (current) use of aspirin; Z79.899 Other long term (current) drug therapy; Z79.84 Long term (current) use of oral hypoglycemic drugs
CPT/HCPCS: 72131; 72192; 99284; A9270

== ENCOUNTER 2024-06-18 08:30 | Outpatient (CLI) | payer MEDICARE, SELFPAY ==
[2024-06-18 19:48] LABS: Alanine Aminotransferase 16 U/L (6-50); Albumin Level 4.6 g/dL (3.5-5.1); Alkaline Phosphatase 84 U/L (38-126); Anion Gap 12 mmol/L (4-12); Aspartate Amino Transferase 28 U/L (17-59); Bilirubin,Total 0.5 mg/dL (0.2-1.3); Blood Urea Nitrogen 21 mg/dL (9-20); Calcium 9.4 mg/dL (8.4-10.2); Carbon Dioxide 26 mmol/L (22-30); Chloride 102 mmol/L (98-107); Cholesterol 133 mg/dL (0-200); Estimated Glomerular Filt Rate 60; Glucose 140 mg/dL (65-110); HDL Direct 35 mg/dL; Potassium 4.7 mmol/L (3.4-5.0); Sodium 140 mmol/L (137-145); Triglycerides 364 mg/dL (<150)
[2024-06-18 20:09] LABS: Hemoglobin A1C 7.4 % (<5.7)
[2024-06-18 20:12] LABS: Creatinine Urine 131.5 mg/dL
[2024-06-18 20:15] LABS: Prostate Specific Antigen 0.9 ng/mL (< OR = 4.0)
[2024-06-18 20:46] LABS: MALB Creatinine Ratio 173.4 mg/g (0-30)
[2024-06-18 22:21] LABS: LDL Cholesterol Direct < 30 mg/dL
== END 2024-06-18 08:31 | disposition home or self-care (01) ==
LOC: ANHBWCLAB 08:31
PROVIDERS: PCP Nurse Practitioner Adult Health; Visit Provider Nurse Practitioner Adult Health
DX: E11.9 Type 2 diabetes mellitus without complications (principal); Z12.5 Encounter for screening for malignant neoplasm of prostate
CPT/HCPCS: 36415; 80053; 80061; 82043; 82565; 83036; 84153; G0103

== ENCOUNTER 2024-08-13 07:06 | Outpatient (CLI) | payer MEDICARE, SELFPAY ==
--- OUTSIDE RECORDS SUMMARY | 2024-08-13 07:11 | XMS_ITS | Referral Summary ---
Author Organization [facility] Address [id number] [place] [id number] Care Team Providers Care Clinical Pharmacy Specialist Name Role Phone Kwadwo Roque MD Primary Care Provider [phone] Encounters Date Type Department Care Team Description 06/12/2024 2:30 PM GASKET NOTCHER Ancillary Procedure [facility] [address] [address] Coronary artery disease involving [place] coronary artery of [place] heart without angina pectoris; Pacemaker; SSS (sick sinus syndrome) (HCC); High degree atrioventricular block from Last 3 Months Allergies No known active allergies Medications lancets (LANCETS, SUPER THIN) misc check blood glucose once daily 50 each 3 Active ipratropium-alb uterol (COMBIVENT RESPIMAT) 20-100 mcg/actuation inhaler inhale 1 puff by inhalation route 4 times every day ; may take additional puffs as needed not to exceed 6 puffs in 24hrs 3 Inhaler 0 4 Active aspirin 81 mg tablet take 1 tablet (81MG) by oral route every day 0 1 Active Additional Information Patient taking differently:81 mgNightly, Reported on 09/17/2021 blood glucose diagnostic (CONTOUR TEST STRIPS) strip Check BG 2x daily 100 each 7 Active carvedilol (COREG) 25 mg tablet Take 1 tablet (25 mg total) by mouth 2 (two) times a day with meals. 90 tablet 3 7 Active amLODIPine (NORVASC) 10 mg tablet Take 1 tablet (10 mg total) by mouth daily. 90 tablet 3 7 Active lisinopril (PRINIVIL,ZESTR IL) 40 mg tablet Take 1 tablet (40 mg total) by mouth daily Active hydroCHLOROthia zide (HYDRODIURIL) 25 mg tablet Take 1 tablet (25 mg total) by mouth daily Active pravastatin (PRAVACHOL) 40 mg tablet Take 1 tablet (40 mg total) by mouth daily Active omega-3 fatty acids 1,000 mg capsule Take 2,000 mg by mouth 2 (two) times a day Active metFORMIN (GLUCOPHAGE) 500 mg tablet Take 1 tablet (500 mg total) by mouth 2 (two) times a day with meals Take one tablet with breakfast and 2 tablets with dinner Active meloxicam (MOBIC) 15 mg tablet Take 1 tablet (15 mg total) by mouth daily Active acetaminophen 500 mg tablet,chewable Take 1,000 mg by mouth every 6 (six) hours as needed Active loratadine (CLARITIN) 10 mg tablet Take 1 tablet (10 mg total) by mouth daily 4 Active Active Problems Problem Noted Date Diagnosed Date Pacemaker 12/08/2023 SSS (sick sinus syndrome) 12/08/2023 High degree atrioventricular block 03/09/2021 Overview (03/09/2021): Added automatically from request for surgery [id number] Syncope and collapse 03/02/2021 Overview (03/17/2021): Cardiac monitoring showed high-grade AV block. Status post Biotronik Edora 8 DRT on 10 March 2021 (RL). Personal history of colonic polyps 05/14/2020 Overview (05/14/2020): Added automatically from request for surgery [id number] Pre-op chest exam 05/14/2020 Overview (05/14/2020): Added automatically from request for surgery [id number] Arthritis of left knee 04/09/2020 Assessment & Plan (04/09/2020 3:42 PM GASKET NOTCHER): Patient has moderate arthritis of the knee with reactive synovitis. He has prominence of the tibial tubercle and may have chronic patella tendinitis. After reviewing the treatment options patient elected undergo a cortisone injection today. He tolerated the procedure well. History of colon polyps 05/23/2019 Overview (05/23/2019): Added automatically from request for surgery [id number] Screen for colon cancer 05/23/2019 Overview (05/23/2019): Added automatically from request for surgery [id number] s/p XLIF L3-4 and L4-5 on 05/2019, L4 Daniels lami and L3-5 PSF on 08/16/2017 08/14/2018 Isthmic spondylolisthesis at L4-5 with bilateral L4 radiculopathy 07/28/2018 Calculus of gallbladder with out cholecystitis without obstruction 12/26/2016 Obesity (BMI 30-39.9) 11/14/2016 Overview (11/14/2016): He was counseled on the importance of maintaining a healthy weight and the risks of obesity. Weight loss recommended. Cataract 12/07/2015 Overview (09/09/2016): Cataract Stenosis of carotid artery 10/30/2014 Overview (09/09/2016): Carotid stenosis Hyperlipidemia 10/30/2014 Overview (09/09/2016): Hyperlipidemia Coronary artery disease invo lving [place] coronary artery of [place] heart without angina pectoris 10/19/2013 Overview (09/07/2016): CAD (coronary artery disease) Type 2 diabetes mellitus with hyperglycemia 04/06 Overview (09/08/2016): Type II diabetes mellitus Chronic bronchitis 01/24/2013 Overview (09/08/2016): Chronic bronchitis Hypertension 03/12/2012 Overview (09/08/2016): Hypertension Chest pain Type 2 diabetes mellitus with other specified co mplication Class 2 obesity without serious comorbidity in a dult Immunizations Immunization Administration Dates Next Due Hep B Vaccine 03/20/2017 Influenza, Quadrivalent, Spl it, Preservative Free, Intradermal 05/01/2015 Influenza, Split 04/30/2013,03/12/2012 Influenza, Trivalent, High D ose, Split, Preservative Free, Intramuscular 05/31/2019,03/20/2017 Pneumococcal Conjugate PCV 13 11/04/2015 Pneumococcal Polysaccharide PPV23 10/18/2012 Tdap 08/11/2011 Social History Tobacco Use Types Packs/Day Years Used Date Smoking Tobacco: Former Cigarettes 1 55 1 - 03/05/2021 Cigars Tobacco Cessation:Counseling Given: Not Answered Alcohol Use Standard Drinks/Week Comments Yes 0 (1 standard drink = 0.6 oz pur e alcohol) occasionally PHQ-2 Answer Date Recorded PHQ-2 Score 0 01/25/2019 Sex and Gender Information Value Date Recorded Sex Assigned at Not on file Legal Sex Male 7:41 PM GASKET NOTCHER Gender Identity Not on file Sexual Orientation Not on file 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 Not on file Not on file Not on ezra e Last Filed Vital Signs Vital Sign Reading Time Taken Comments Blood Pressure 149/73 12/08/2023 2:29 PM CDT Pulse 66 12/08/2023 2:29 PM CDT Temperature 36.6 C (97.9 F) 03/30/2021 3:29 PM CDT Respiratory Rate 18 09/17/2021 9:06 AM CDT Oxygen Saturation 95% 03/30/2021 3:29 PM CDT Inhaled Oxygen Concentration - - Weight 111.1 kg (245 lb) 01/02/2024 7:34 AM CDT Height 175.3 cm (5' 9 ) 01/02/2024 7:34 AM CDT Body Mass Index 36.18 01/02/2024 7:34 AM CDT Plan of Treatment Not on file Medical Devices Implanted Type Area Capsule Maker Device Identifier Shelf Expiration Date Model / Serial / Lot Biotronik Inc [id number] Endocardial Pacing Lead Promri Solia Jt 45 - [id number] - [id number] Implanted:Qty: 1 on 03/10/2021 by Ben Casillas MD at [facility] Lead Biotronik Inc 01/02/2023 [id number] / [id number] / Biotronik Inc [id number] Endocardial Pacing Lead Promri Solia T 53 - [id number] - [id number] Implanted:Qty: 1 on 03/10/2021 by Ben Casillas MD at [facility] Lead Biotronik Inc 10/02/2022 [id number] / [id number] / Biotronik Inc [id number] Edora Promri 33t35q7.5mm Dual Chamber Rate Adaptive Unipolar Bipolar - [id number] - [id number] Implanted:Qty: 1 on 03/10/2021 by Ben Casillas MD at [facility] Pacemaker Biotronik Inc 06/04/2022 [id number] / [id number] / Medtronic Sofamor Danek [id number] Infuse 14mm 23mm Absorbable Sponge Sterile Water Syringe Needle - [id number] Implanted:Qty: 1 on 08/14/2018 by Rajesh Tay MD at [facility] N/A: Spine Lumbar Medtronic Sofamor Danek 08/02/2020 [id number] / / [id number] Spacer Spinal [id number] 10d Xl Wide Peek Lordotic - [id number] - [id number] Implanted:Qty: 1 on 08/14/2018 by Rajesh Tay MD at [facility] N/A: Spine Lumbar Nuvasive Creative Spine Tech [id number] / [id number] / Spinal Graft Tech [id number] [place] Putty Jar Graft 5cc Bone Demineralized Bone Matrix - [id number] - [id number] Implanted:Qty: 1 on 08/14/2018 by Rajesh Tay MD at [facility] N/A: Spine Lumbar Spinal Graft Tech 01/14/2021 [id number] / [id number] / Medtronic Spinal Graft [id number] [place] Putty Filler 1cc Bone Void Demineralized Bone Matrix - [id number] - [id number] Implanted:Qty: 1 on 08/14/2018 by Rajesh Tay MD at [facility] N/A: Spine Lumbar Medtronic Spinal Graft 02/06/2021 [id number] / [id number] / Cage Spinal [id number] Modulus 10d Xl Wide Strl Ltxfre - [id number] - [id number] Implanted:Qty: 1 on 08/14/2018 by Rajesh Tay MD at [facility] N/A: Spine Lumbar Nuvasive Creative Spine Tech 02/11/2023 [id number] / [id number] / [id number] Depuy Spine [id number] Expedium 7mm 55mm 1 Innie Polyaxial Spine Screw Bone Titanium - [id number] Implanted:Qty: 4 on 08/16/2018 by Rajesh Tay MD at [facility] N/A: Spine Lumbar Depuy Spine [id number] / / Depuy Spine [id number] Expedium 7mm 50mm 1 Innie Polyaxial Spine Screw Bone Titanium - [id number] Implanted:Qty: 2 on 08/16/2018 by Rajesh Tay MD at [facility] N/A: Spine Lumbar Depuy Spine [id number] / / Depuy Spine [id number] Expedium 1 Inner Monoaxial Spine Screw Set Titanium - [id number] Implanted:Qty: 6 on 08/16/2018 by Rajesh Tay MD at [facility] N/A: Spine Lumbar Depuy Spine [id number] / / Depuy Spine [id number] Expedium 5.5mm 75mm Line Prebent Beto Spinal Titanium Nonsterile - [id number] Implanted:Qty: 2 on 08/16/2018 by Rajesh Tay MD at [facility] N/A: Spine Lumbar Depuy Spine [id number] / / Musculoskeletal Transplant [id number] Allograft Putty Freeze Dried Filler 5cc Bone Void Dbx - [id number] - [id number] Implanted:Qty: 1 on 08/16/2018 by Rajesh Tay MD at [facility] N/A: Spine Lumbar Musculoskeletal Transplant 04/24/2020 [id number] / [id number] / Procedures Procedure Name Priority Date/Time Associated Diagnosis Comments DEVICE CHECK - REMOTE Routine 06/11/2024 10:10 AM GASKET NOTCHER Coronary artery disease involving [place] coronary artery of [place] heart without angina pectoris Pacemaker SSS (sick sinus syndrome) (HCC) High degree atrioventricular block CT LUNG CANCER SCREENING Schedule Routine, Read Routine (OP Routine) 05/06/2021 1:38 PM GASKET NOTCHER History of tobacco abuse ABDOMINAL AORTA Schedule Routine, Read Routine (OP Routine) 05/06/2021 12:51 PM GASKET NOTCHER History of tobacco abuse EGFR STAT 03/09/2021 3:00 PM CDT COLONOSCOPY 06/26/2020 8:41 AM GASKET NOTCHER HEMOGLOBIN A1C Routine 08/10/2018 1:43 PM GASKET NOTCHER Preop testing DIABETES FOOT EXAM Routine 03/20/2017 LIPID PANEL WITH REFLEX TO DIRECT LDL Routine 03/11/2017 1:00 PM CDT Hyperlipidemia, unspecified hyperlipidemia type DIABETES EYE EXAM Routine 09/15/2016 SERUM HEPATITIS C AB Routine 02/16/2016 7:29 AM CDT from Last 3 Months or Most Recently Relevant to Health Maintenance Results * DEVICE CHECK - REMOTE (06/11/2024 10:10 AM GASKET NOTCHER) Anatomical Region Laterality Modality Other Narrative 06/15/2024 11:41 PM GASKET NOTCHER Images from the original result were not included. 06/12/2024 Bioceros quarterly remote device check NOTE The following shows snippets from the complete quarterly report. The complete report in its entirety is attached to this Result Text in Fudger Periodic IEGM Detection Jun 05, 2024: Dual Chamber PPM implanted March 2021 Battery Status: OK/75% Ap: 55% RVp: 85% No anomalies noted on remote Reviewed By Sirisha Garcia RN BSN ATTESTATION I have reviewed the device interrogation report associated with this encounter in detail. I agree with the documentation recorded/scanned into the electronic medical record. Recommendations: Continue current device follow-up. Ti Coles MD Brook Alaniz MD [facility] PROCED URES Final Result * CT Lung Cancer Screening (05/06/2021 1:38 PM GASKET NOTCHER) Anatomical Region Laterality Modality Chest N/A Computed Tomogra phy 05/06/2021 2:11 PM GASKET NOTCHER Narrative 05/06/2021 2:21 PM GASKET NOTCHER EXAM DESCRIPTION: CT LUNG CANCER SCREENING REASON FOR STUDY: Screening CT of the chest in a 70-year-old male former smoker with a 55 pack year smoking history. Additional history: Patient quit smoking one month ago. TECHNIQUE: Low dose CT scan of the chest was performed without intravenous contrast using helical scanning technique. The exam extends from the lung apices through the lung bases. Automatic exposure control was used as a dose optimization technique. NOTE: This study was performed for the specific purposes of lung cancer screening and is not an alternative to diagnostic chest CT. RADIATION DOSE: CT dose index volume (CTDIvol) = 1.41 mGy COMPARISON: CT 01/15/2018 FINDINGS: SMOKING RELATED LUNG DISEASE: Mild centrilobular pulmonary emphysema. LUNG NODULES: 4 mm nodule left upper lobe image 90 is stable. 4 mm nodule left upper lobe image 76 is stable. No new or enlarging nodule. OTHER: Coronary artery disease. Left-sided cardiac pacer. IMPRESSION: 1. Mild emphysema 2. A couple millimetric pulmonary nodules measure up to 4 mm in diameter and are unchanged. Lung-RADS v1.1 category 2: Benign appearance or behavior. Recommendation: Continue annual screening low-dose chest CT in 12 months. THIS IS AN ELECTRONICALLY VERIFIED FINAL REPORT 05/06/2021 2:21 PM - Electronically signed by Radha Diaz M.D. : Report ID: [id number] Reading Location: [id number] Procedure Note Radha Diaz MD - 05/06/2021 EXAM DESCRIPTION: CT LUNG CANCER SCREENING REASON FOR STUDY: Screening CT of the chest in a 70-year-old male former smoker with a 55 pack year smoking history. Additional history: Patientquit smoking one month ago. TECHNIQUE: Low dose CT scan of the chest was performed without intravenous contrast using helical scanning technique. The exam extends from the lung apices through the lung bases. Automatic exposure control was used as adose optimization technique. NOTE: This study was performed for the specific purposes of lung cancer screening and is not an alternative to diagnostic chest CT. RADIATION DOSE: CT dose index volume (CTDIvol) = 1.41 mGy COMPARISON: CT 01/15/2018 FINDINGS: SMOKING RELATED LUNG DISEASE: Mild centrilobular pulmonary emphysema. LUNG NODULES: 4 mm nodule left upper lobe image 90 is stable. 4 mmnodule left upper lobe image 76 is stable. No new or enlarging nodule. OTHER: Coronary artery disease. Left-sided cardiac pacer. IMPRESSION: 1. Mild emphysema 2. A couple millimetric pulmonary nodules measure up to 4 mm in diameterand are unchanged. Lung-RADS v1.1 category 2: Benign appearance or behavior. Recommendation: Continue annual screening low-dose chest CT in 12 months. THIS IS AN ELECTRONICALLY VERIFIED FINAL REPORT 05/06/2021 2:21 PM - Electronically signed by Radha Diaz M.D. : Report ID: [id number] Reading Location: [id number] us Kwadwo Roque MD IMG CT PROCEDURES Final R esult * US Abdominal Aorta (05/06/2021 12:51 PM GASKET NOTCHER) Anatomical Region Laterality Modality Abdomen N/A Ultrasound 05/06/2021 1:06 PM GASKET NOTCHER Narrative 05/06/2021 1:09 PM GASKET NOTCHER EXAM DESCRIPTION: US ABDOMINAL AORTA REASON FOR STUDY: Z87.891 AAA screening TECHNIQUE: Grayscale images acquired of the aorta and stored on PACS. Selected color Doppler and spectral images recorded. COMPARISON: None available FINDINGS: AORTIC CALIBER MAXIMAL PROXIMAL: 2.5 cm. MID: 3.9 cm. DISTAL: 2.3 cm. ILIAC DIAMETER RIGHT: 1.2 cm. LEFT: 1.5 cm. OTHER: No other significant finding. IMPRESSION: Aneurysmal dilatation of the infrarenal abdominal aorta measuring maximum of 3.[address] could be obtained for further characterization. THIS IS AN ELECTRONICALLY VERIFIED FINAL REPORT 05/06/2021 1:09 PM - Electronically signed by Brysonchristian ALVARADO: JENNY Report ID: [id number] Reading Location: [id number] Procedure Note Bryson Macias MD - 05/06/2021 EXAM DESCRIPTION: US ABDOMINAL AORTA REASON FOR STUDY: Z87.891 AAA screening TECHNIQUE: Grayscale images acquired of the aorta and stored on PACS.Selected color Doppler and spectral images recorded. COMPARISON: None available FINDINGS: AORTIC CALIBER MAXIMAL PROXIMAL: 2.5 cm. MID: 3.9 cm. DISTAL: 2.3 cm. ILIAC DIAMETER RIGHT: 1.2 cm. LEFT: 1.5 cm. OTHER: No other significant finding. IMPRESSION: Aneurysmal dilatation of the infrarenal abdominal aorta measuringmaximum of 3.[address] could be obtained for further characterization. THIS IS AN ELECTRONICALLY VERIFIED FINAL REPORT 05/06/2021 1:09 PM - Electronically signed by Bryson Macias M.D. JA: JENNY Report ID: [id number] Reading Location: [id number] us Kwadwo Roque MD IMG US PROCEDURES Final R esult * eGFR (03/09/2021 3:00 PM CDT) eGFR 91 mL/min/1.7 3 m2 DOUG MIRAMONTES) Comment: Interpretive Data Reference Interval Normal >/= 90 mL/min/1.73m2 Mildly decreased* 60 - 89 mL/min/1.73m2 Mildly to moderately decreased 45 - 59 mL/min/1.73m2 Moderately to severely decreased 30 - 44 mL/min/1.73m2 Severely decreased 15 - 29 mL/min/1.73m2 Kidney Failure < 15 mL/min/1.73m2 *Relative to young adult level Estimated glomerular filtration rate is determined by the CKD-EPI equation recommended by the National Kidney Foundation (KDIGO 2012 Clinical Practice Guideline for the Evaluation and Management of Chronic Kidney Disease. Kidney Intnl Suppl Jun 2012;3:1). The CKD-EPI equation should not be used for patients with unstable renal function and has not been validated in children and those over 70. Current interpretive data was last reviewed 2020 Blood 03/09/2021 3:00 PM CDT 03/09/2021 3:14 PM CDT us Ben Casillas MD LAB BLOOD ORDERABLES Final Re sult DOUG [facility] Department of Laboratories [place], [place] [id number] * COLONOSCOPY (06/26/2020 8:41 AM GASKET NOTCHER) Anatomical Region Laterality Modality Other Narrative Procedure Note Connor Patel MD - 06/26/2020 8:41 AM CST [facility] Patient Name: Musa Amaya Procedure Date: 06/26/2020 8:41 AM Date of : 1950 Admit Type: Outpatient Age: 70 Gender: Male Attending MD: Connor Patel M.D. Room: [facility] ENDOSCOPY ROOM 2 Note Status: Finalized Patient Profile: Refer to note in patient chart for documentation of history and physical. Procedure: Colonoscopy Indications: Last colonoscopy: June 2019 Referring MD: Connor Lee NO CURRENT ADDRESS, D.O. Providers: Connor Patel M.D. Impression: - Hemorrhoids found on perianal exam. - The entire examined colon is normal. - No specimens collected. Recommendation: - Discharge patient to home. - Resume previous diet. - Continue present medications. - Repeat colonoscopy in 5 years for surveillance. - Return to primary care physician as previously scheduled. Medicines: Propofol per Anesthesia Complications: No immediate complications. Estimated Blood Loss: Estimated blood loss: none. Procedure: Pre-Anesthesia Assessment: - This assessment was completed [Time of Assessment] prior to the administration of sedation. The benefits, risks and alternatives of theprocedure and sedation were discussed and informed consent was obtained. All questions were answered. Please referto the signed informed consent document in the medical record. Bowel prep was administered using a single dose. The bowel preparation used was Miralax. Thebowel preparation used was bisacodyl tablets. The scopewas passed under direct vision. The [id number] was introduced through the anus andadvanced to the the cecum, identified by appendiceal orificeand ileocecal valve. The colonoscopy was performedwithout difficulty. The patient tolerated the procedurewell. The quality of the bowel preparation wasexcellent. Findings: Hemorrhoids were found on perianal exam. The colon (entire examined portion) appeared normal. Electronically signed by Connor Patel M.D. Connor Patel M.D. 06/26/2020 9:30:12 AM Number of Addenda: 0 Note Initiated On: 06/26/2020 8:41 AM Procedure Code(s): --- Professional --- 07966, Colonoscopy, flexible; diagnostic, including collection of specimen(s) by brushing or washing, when performed (separateprocedure) Diagnosis Code(s): --- Professional --- K64.9, Unspecified hemorrhoids CPT copyright 2017 [employer]. All rights reserved. The codes documented in this report are preliminary and upon railroad brake repairer reviewmay be revised to meet current compliance requirements. Recognized by the [place] [employer] for promoting quality in endoscopy Connor Patel MD ENDOSCOPY PROCEDURES Final Re sult * (ABNORMAL) Hemoglobin A1c (08/10/2018 1:43 PM GASKET NOTCHER) Pathologist [facility] Hgb A1C 6.9(H) 4.0 - 5.6 % DOUG Estimated Average Glucose 151 mg/dL DOUG Comment: The ADA recommends reporting an estimated Average Glucose (eAG) with all Hemoglobin A1c results using the equation derived from a study of 507 normal and diabetic adults. Minority populations were underrepresented and children were not included. (Diabetes Care 31:0988-7565, 2008). The eAG is not equivalent to a fasting glucose. Blood specimen (specimen) 08/10/2018 1:43 PM GASKET NOTCHER 08/10/2018 4:10 PM GASKET NOTCHER Narrative DOUG - 08/10/2018 4:53 PM GASKET NOTCHER Rajesh Tay MD LAB BLOOD ORDERABLES F inal Result [facility] [address] [address] Department [place] [address] * DIABETES FOOT EXAM (03/20/2017) Pathologist [facility] Diabetic Foot Exam Normal Historical Provider HEALTH MAINTENANCE Final Result * (ABNORMAL) Lipid panel with reflex to direct LDL (03/11/2017 1:00 PM CDT) Pathologist [facility] Cholesterol 146 100 - 200 mg/dL DOUG Comment: Interpretive Data Desirable: <200 mg/dL Borderline high: 200-239 mg/dL High: >240 mg/dL Current interpretive data was last revised on 2015. Triglycerides 332(H) 10 - 150 mg/dL DOUG Comment: Interpretive Data Desirable: < 150 mg/dL Borderline High: 150 - 199 mg/dL High: 200 - 499 mg/dL Very High: > or = 499 mg/dL Current interpretive data was last revised on 2015. HDL 33(L) 40 - 59 mg/dL DOUG Comment: Interpretive Data Less than 40 mg/dL - Low; A major risk factor for heart disease. Greater than or equal to 60 mg/dL - High; Considered protective of heart disease. Current interpretive data was last revised on 2015. LDL, calculated 47(L) 60 - 129 mg/dL DOUG Comment: Interpretive Data Optimal: < 100 mg/dL Near Optimal: 100 - 129 mg/dL Borderline High: 130 - 159 mg/dL High: > 160 mg/dL Current interpretive data was last revised on 2015. Chol/HDL ratio 4 mg/dL DOUG Blood specimen (specimen) 03/11/2017 1:00 PM CDT 03/11/2017 1:00 PM CDT Whitney Castillo MD LAB BLOOD ORDERABLES Final Result [facility] [address] [address] Department of Laboratories [place] [id number] * DIABETES EYE EXAM (09/15/2016) Diabetic Eye Exam Unknown Ting Provider HEALTH MAINTENANCE Final Result * Serum Hepatitis C ab (02/16/2016 7:29 AM CDT) HCV ab Negative Negative CDR HISTOR ICAL RESULTS Serum 02/16/2016 7:29 AM CDT Whitney Castillo MD LAB BLOOD ORDERABLES Final Result CDR HISTORICAL RESULTS from Last 3 Months or Most Recently Relevant to Health Maintenance Insurance MEDICARE MEDICARE [employer] MEDICARE SUPPLEMENT [employer] CLAIMS OFFICE MEDICARE Advance Directives For more information, please contact: [phone] * Full Code (Latest Code Status on File) Date Activated Date Inactivated Comments 06/26/2020 8:48 AM 06/26/2020 2:09 PM * Full Code Date Activated Date Inactivated Comments 06/26/2020 8:48 AM 06/26/2020 8:48 AM * Full Code Date Activated Date Inactivated Comments 06/10/2019 8:39 AM 06/10/2019 2:42 PM * Full Code Date Activated Date Inactivated Comments 06/10/2019 8:38 AM 06/10/2019 8:39 AM * Full Code Date Activated Date Inactivated Comments 05/30/2019 5:37 PM 05/31/2019 7:35 PM Care Teams Clinical Pharmacy Specialist Relationship Specialty Start Date End Date Kwadwo Roque MD PCP - General Family Practice 03/01/21
--- OUTSIDE RECORDS SUMMARY | 2024-08-13 07:11 | XMS_ITS | Clinical Summary ---
Author Organization [facility] Address [address] [place] [address] Care Team Providers Care It Administrator Name Role Phone Kwadwo Roque MD Primary Care Provider [phone] Allergies No known active allergies Medications lancets (LANCETS, SUPER THIN) misc check blood glucose once daily 50 each 11 3 Active ipratropium-alb uterol (COMBIVENT RESPIMAT) 20-100 [...] strip Check BG 2x daily 100 each 11 7 Active carvedilol (COREG) 25 mg tablet [...] (03/09/2021): Added automatically from request for surgery [id number] Syncope and collapse 03/02/2021 Overview (03/17/2021): Cardiac monitoring showed high-grade AV block. Status post Biotronik Edora 8 DRT on 10 March 2021 (RL). Personal history of colonic polyps 05/14/2020 Overview (05/14/2020): Added automatically from request for surgery [id number] Pre-op chest exam 05/14/2020 Overview (05/14/2020): Added automatically from request for surgery [id number] Arthritis of left knee 04/09/2020 Assessment & Plan (04/09/2020 3:42 PM FINANCIAL REPORT SERVICE SALES AGENT): Patient has moderate arthritis of the knee with reactive synovitis. He has prominence of the tibial tubercle and may have chronic patella tendinitis. After reviewing the treatment options patient elected undergo a cortisone injection today. He tolerated the procedure well. History of colon polyps 05/23/2019 Overview (05/23/2019): Added automatically from request for surgery [id number] Screen for colon cancer 05/23/2019 Overview (05/23/2019): Added automatically from request for surgery [id number] s/p XLIF L3-4 and L4-5 on 05/2019, [...] (09/09/2016): Hyperlipidemia Coronary artery disease invo lving red devil coronary artery of red devil heart without angina pectoris 10/19/2013 Overview (09/07/2016): CAD (coronary artery disease) Type 2 diabetes mellitus with hyperglycemia 04/06 Overview (09/08/2016): Type II diabetes mellitus Chronic bronchitis 01/24/2013 Overview (09/08/2016): Chronic bronchitis Hypertension 03/12/2012 Overview (09/08/2016): Hypertension Chest pain Type 2 diabetes mellitus with other specified co mplication Class 2 obesity without serious comorbidity in a dult Encounters Date Type Department Care Team Description 06/12/2024 2:30 PM FINANCIAL REPORT SERVICE SALES AGENT Ancillary Procedure [employer] [address] [place] [id number] Coronary artery disease involving red devil coronary artery of red devil heart without angina pectoris; Pacemaker; SSS (sick sinus syndrome) (HCC); High degree atrioventricular block from Last 3 Months Immunizations Immunization Administration Dates Next Due Hep B Vaccine 03/20/2017 Influenza, Quadrivalent, Spl it, Preservative Free, Intradermal 05/01/2015 Influenza, Split 04/30/2013,03/12/2012 Influenza, Trivalent, High D ose, Split, Preservative Free, Intramuscular 05/31/2019,03/20/2017 Pneumococcal Conjugate PCV 13 11/04/2015 Pneumococcal Polysaccharide PPV23 10/18/2012 Tdap 08/11/2011 Surgical History Surgery Date Site/Laterality Comments OTHER SURGICAL HISTORY er chest pains BICEPS TENDON REPAIR Right THROAT SURGERY LAMINECTOMY 08/16/2017 COLONOSCOPY 07/18/2016 COLONOSCOPY 06/10/2019 INSERT / REPLACE / REMOVE PACEMAKER 03/10/2021 pacemaker placement Medical History Medical History Date Comments Hx Other Medical low back pain, turned tractor Hx Other Medical silent [place] Hyperlipidemia Hyperlipidemia Hx Other Medical left eye catara ct sx 10/17.; Comments: AAW 10/30/2014 - Chest pain 11/08/2016 AM[facility] Mild CAD 11/09/2016 30% LAD Sleep apnea Hypertension Type 2 diabetes mellitus (HCC) Arthritis Family History Medical History Relation Name Comments Other Brother 3 antoni Alive and well; Diabetes Brother 4 Diabetes mellit us; Cause of : Diabetes mellitus Coronary artery disease Brother 5 Asuncion nary artery disease; Other Brother 6 catrachito drug addiction; Bladder Cancer Mother Cancer -bladd er; Cancer Mother cancer; Cause o f : cancer Diabetes Mother Diabetes mellit us; Hypertension Mother Hypertension; Other Sister 2 Lorene Alive and well; Coronary artery disease Sister 3 Asuncion nary artery disease; Heart disease Sister 4 heart disease; Cause of : heart disease Relation Name Status Comments Brother 1 Brother 2 Alive Brother 3 antoni Alive Brother 4 Brother 5 Brother 6 catrachito Mother Sister 1 Sister 2 Lorene Alive Sister 3 Sister 4 Social History Tobacco Use Types Packs/Day Years [...] on file Legal Sex Male 7:41 PM FINANCIAL REPORT SERVICE SALES AGENT Gender Identity Not on file Sexual Orientation Not on file 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 Not on file Not on file Not on ezra e Obstetrics History Last Filed Vital Signs Vital Sign Reading [...] 01/02/2024 7:34 AM CDT Plan of Treatment Health Maintenance Due Date Last Done Comments Albumin Creatinine Ratio, Urine 1950 Zoster Vaccine (1 of 2) 2000 Dilated Eye Exam 09/15/2017 09/15/2016 Well Visit 65+ 12/14/2017 12/14/2016 Lipid Panel 03/11/2018 03/11/2017, 11/04, 11/09/2016, Additional history exists Foot Exam 03/20/2018 03/20/2017, 08/05/2016 Hemoglobin A1C 02/10/2019 08/10/2018, 0601/2018, 03/11/2017, Additional history exists Depression Screening 05/30/2020 05/30/2019, 07/30/2018, 03/20/2017, Additional history exists Pneumococcal vaccine 65+ (3 of 3 - PCV20 or PCV21) 11/03/2020 11/04/2015, 10/18/2012 DTaP/Tdap/Td Vaccine (2 - Td or Tdap) 08/10/2021 08/11/2011 eGFR 03/09/2022 03/09/2021, 05/06, 08/17/2018, Additional history exists Fall Risk Assessment 03/11/2022 03/11/2021 Lung Cancer Screening 05/06/2022 05/06/2021 , 01/15/2018, 12/23/2016 Colon Cancer Screening-Colonoscopy 06/26/2022 06/26/2020, 06/10/2019, 07/18/2016, Additional history exists Influenza Vaccine (#1) 2024 9, 03/20/2017, 05/01/2015, Additional history exists Hepatitis C Screening Completed 02/16/2016 Hepatitis B Screening Completed 03/09/2018, 017 Colon Cancer Screening-CT Colonography Discontinued 06/26/2020, 06/10/2019, 07/18/2016, Additional history exists Colon Cancer Screening-DNA Stool Discontinued 06/26/2020, 06/10/2019, 07/18/2016, Additional history exists Colon Cancer Screening-FIT Discontinued 06/26, 06/10/2019, 07/18/2016, Additional history exists Colon Cancer Screening-Sigmoidoscopy Discontinued 06/26/2020, 06/10/2019, 07/18/2016, Additional history exists Abdominal Aortic Aneurysm (A AA) Screen Completed 05/06/2021, 11/28/2015 Medical Devices Implanted Type Area Strategic Planning Specialist Device Identifier Shelf Expiration Date Model / Serial / Lot Biotronik Inc [id number] Endocardial Pacing Lead Promri Solia Jt 45 - [id number] - [id number] Implanted:Qty: 1 on 03/10/2021 by Ben Casillas MD at [facility] Lead Biotronik Inc 01/02/2023 [id number] / [id number] / Biotronik Inc [id number] Endocardial Pacing Lead Promri Solia T 53 - [id number] - [id number] Implanted:Qty: 1 on 03/10/2021 by Ben Casillas MD at [facility] Lead Biotronik Inc 10/02/2022 [id number] 80 / [id number] / Biotronik Inc [id number] Edora Promri 91u57t7.5mm Dual Chamber Rate Adaptive Unipolar Bipolar - [id number] - [id number] Implanted:Qty: 1 on 03/10/2021 by Ben Casillas MD at [facility] Pacemaker Biotronik Inc 06/04/2022 [id number] 45 / [id number] / Medtronic Sofamor Danek [id number] Infuse 14mm 23mm Absorbable Sponge Sterile Water Syringe Needle - [id number] Implanted:Qty: 1 on 08/14/2018 by Rajesh Tay MD at [facility] N/A: Spine Lumbar Medtronic Sofamor Danek 08/02/2020 [id number] / / [id number] Spacer Spinal [id number] 10d Xl Wide Peek Lordotic - [id number] - [id number] Implanted:Qty: 1 on 08/14/2018 by Rajesh Tay MD at [facility] N/A: Spine Lumbar Nuvasive Creative Spine Tech [id number] / [id number] / Spinal Graft Tech [id number] Quail Putty Jar Graft 5cc Bone Demineralized Bone Matrix - [id number] - [id number] Implanted:Qty: 1 on 08/14/2018 by Rajesh Tay MD at [facility] N/A: Spine Lumbar Spinal Graft Tech 01/14/2021 [id number] / [id number] / Medtronic Spinal Graft [id number] Quail Putty Filler 1cc Bone Void Demineralized Bone Matrix - [id number] - [id number] Implanted:Qty: 1 on 08/14/2018 by Rajesh Tay MD at [facility] N/A: Spine Lumbar Medtronic Spinal Graft 02/06/2021 [id number] / [id number] / Cage Spinal [id number] Modulus 10d Xl Wide Strl Ltxfre - [id number] - [id number] Implanted:Qty: 1 on 08/14/2018 by Rajesh Tay MD at [facility] N/A: Spine Lumbar Nuvasive Creative Spine Tech 02/11/2023 [id number] / [id number] / [id number] Depuy Spine [id number] Expedium 7mm 55mm 1 Innie Polyaxial Spine Screw Bone Titanium - [id number] Implanted:Qty: 4 on 08/16/2018 by Rajesh Tay MD at [facility] N/A: Spine Lumbar Depuy Spine [id number] / / Depuy Spine [id number] Expedium 7mm 50mm 1 Innie Polyaxial Spine Screw Bone Titanium - [id number] Implanted:Qty: 2 on 08/16/2018 by Rajesh Tay MD at [facility] N/A: Spine Lumbar Depuy Spine [id number] / / Depuy Spine [id number] Expedium 1 Inner Monoaxial Spine Screw Set Titanium - [id number] Implanted:Qty: 6 on 08/16/2018 by Rajesh Tay MD at [facility] N/A: Spine Lumbar Depuy Spine [id number] / / Depuy Spine [id number] Expedium 5.5mm 75mm Line Prebent Beto Spinal Titanium Nonsterile - [id number] Implanted:Qty: 2 on 08/16/2018 by Rajesh Tay MD at [facility] N/A: Spine Lumbar Depuy Spine [id number] / / Musculoskeletal Transplant [id number] Allograft Putty Freeze Dried Filler 5cc Bone Void Dbx - [id number] - [id number] Implanted:Qty: 1 on 08/16/2018 by Rajesh Tay MD at [facility] N/A: Spine Lumbar Musculoskeletal Transplant 04/24/2020 [id number] / [id number] / Procedures Procedure Name Priority Date/Time Associated Diagnosis Comments DEVICE CHECK - REMOTE Routine 06/11/2024 10:10 AM FINANCIAL REPORT SERVICE SALES AGENT Coronary artery disease involving red devil coronary artery of red devil heart without angina pectoris Pacemaker SSS (sick sinus syndrome) (HCC) High degree atrioventricular block CT LUNG CANCER SCREENING Schedule Routine, Read Routine (OP Routine) 05/06/2021 1:38 PM FINANCIAL REPORT SERVICE SALES AGENT History of tobacco abuse US ABDOMINAL AORTA Schedule Routine, Read Routine (OP Routine) 05/06/2021 12:51 PM FINANCIAL REPORT SERVICE SALES AGENT History of tobacco abuse EGFR STAT 03/09/2021 3:00 PM CDT COLONOSCOPY 06/26/2020 8:41 AM FINANCIAL REPORT SERVICE SALES AGENT HEMOGLOBIN A1C Routine 08/10/2018 1:43 PM FINANCIAL REPORT SERVICE SALES AGENT Preop testing DIABETES FOOT EXAM Routine 03/20/2017 LIPID PANEL WITH REFLEX TO DIRECT LDL Routine 03/11/2017 1:00 PM CDT Hyperlipidemia, unspecified hyperlipidemia type DIABETES EYE EXAM Routine 09/15/2016 SERUM HEPATITIS C AB Routine 02/16/2016 7:29 AM CDT from Last 3 Months or Most Recently Relevant to Health Maintenance Results * DEVICE CHECK - REMOTE (06/11/2024 10:10 AM FINANCIAL REPORT SERVICE SALES AGENT) Anatomical Region Laterality Modality Other Narrative 06/15/2024 11:41 PM FINANCIAL REPORT SERVICE SALES AGENT Images from the original result were not included. 06/12/2024 [employer] quarterly remote device check NOTE The following shows snippets from the complete quarterly report. The complete report in its entirety is attached to this Result Text in Room Designer Periodic IEGM Detection Jun 05, 2024: Dual Chamber PPM implanted March 2021 Battery Status: OK/75% Ap: 55% RVp: 85% No anomalies noted on remote Reviewed By Sirisha Garcia RN BSN ATTESTATION I have reviewed the device interrogation report associated with this encounter in detail. I agree with the documentation recorded/scanned into the electronic medical record. Recommendations: Continue current device follow-up. Ti Coles MD us Brook Alaniz MD [facility] CARDIAC SERVICES PROCED URES Final Result * CT Lung Cancer Screening (05/06/2021 1:38 PM FINANCIAL REPORT SERVICE SALES AGENT) Anatomical Region Laterality Modality Chest N/A Computed Tomogra phy 05/06/2021 2:11 PM FINANCIAL REPORT SERVICE SALES AGENT Narrative 05/06/2021 2:21 PM FINANCIAL REPORT SERVICE SALES AGENT EXAM DESCRIPTION: CT LUNG CANCER SCREENING REASON [...] by Radha Diaz M.D. : Report ID: [id number] Reading Location: [place] [address] Procedure Note Radha Diaz MD - 05/06/2021 [...] by Radha Diaz M.D. : Report ID: [id number] Reading Location: [id number] us Kwadwo Roque MD IMG CT PROCEDURES Final R esult * US Abdominal Aorta (05/06/2021 12:51 PM FINANCIAL REPORT SERVICE SALES AGENT) Anatomical Region Laterality Modality Abdomen N/A Ultrasound 05/06/2021 1:06 PM FINANCIAL REPORT SERVICE SALES AGENT Narrative 05/06/2021 1:09 PM FINANCIAL REPORT SERVICE SALES AGENT EXAM DESCRIPTION: US ABDOMINAL AORTA REASON FOR [...] Bryson Macias M.D. JA: JENNY Report ID: [id number] Reading Location: [id number] Procedure Note Bryson Macias MD - 05/06/2021 [...] Bryson Macias M.D. JA: JENNY Report ID: [id number] Reading Location: [place] [address] us Kwadwo Roque MD IMG US PROCEDURES Final R esult * eGFR (03/09/2021 3:00 PM CDT) eGFR 91 mL/min/1.7 3 m2 DOUG MOODY (STEPHEN) Comment: Interpretive Data Reference Interval Normal >/= [...] LAB BLOOD ORDERABLES Final Re sult DOUG MOODY (STEPHEN) [facility] Department [place] [address] * COLONOSCOPY (06/26/2020 8:41 AM FINANCIAL REPORT SERVICE SALES AGENT) Anatomical Region Laterality Modality Other Narrative Procedure Note Jorge, Connor R., MD - 06/26/2020 8:41 AM CST [facility] Patient Name: Musa Amaya Procedure Date: 06/26/2020 8:41 AM Date of : 1950 Admit Type: Outpatient Age: 70 Gender: Male Attending MD: Connor Patel M.D. Room: [facility] ENDOSCOPY ROOM 2 Note Status: Finalized Patient [...] The scopewas passed under direct vision. The [id number] was introduced through the anus andadvanced to [...] 8:41 AM Procedure Code(s): --- Professional --- 90652, Colonoscopy, flexible; diagnostic, including collection of specimen(s) by brushing or washing, when performed (separateprocedure) Diagnosis Code(s): --- Professional --- K64.9, Unspecified hemorrhoids CPT copyright 2017 [employer]. All rights reserved. The codes documented in this report are preliminary and upon package designer reviewmay be revised to meet current compliance requirements. Recognized by the [employer] for promoting quality in endoscopy us Connor Patel MD ENDOSCOPY PROCEDURES Final Re sult * (ABNORMAL) Hemoglobin A1c (08/10/2018 1:43 PM FINANCIAL REPORT SERVICE SALES AGENT) Hgb A1C 6.9(H) 4.0 - 5.6 % DOUG MOTA Estimated Average Glucose 151 mg/dL DOUG MOTA Comment: The ADA recommends reporting an estimated Average Glucose (eAG) with all Hemoglobin A1c results using the equation derived from a study of 507 normal and diabetic adults. Minority populations were underrepresented and children were not included. (Diabetes Care 31:2725-1524, 2008). The eAG is not equivalent to a fasting glucose. Blood specimen (specimen) 08/10/2018 1:43 PM FINANCIAL REPORT SERVICE SALES AGENT 08/10/2018 4:10 PM FINANCIAL REPORT SERVICE SALES AGENT Narrative DOUG MOTA - 08/10/2018 4:53 PM FINANCIAL REPORT SERVICE SALES AGENT Rajesh Tay MD LAB BLOOD ORDERABLES F inal Result DOUG [address] [address] Department [place] [address] * DIABETES FOOT EXAM (03/20/2017) Diabetic Foot Exam Normal Ting Provider HEALTH MAINTENANCE Final Result * (ABNORMAL) Lipid panel with reflex to direct LDL (03/11/2017 1:00 PM CDT) Cholesterol 146 100 - 200 mg/dL DOUG [...] Castillo MD LAB BLOOD ORDERABLES Final Result DOUG MOTA [address] [address] [place] [address] * DIABETES EYE EXAM (09/15/2016) Diabetic Eye Exam Unknown us Historical Provider MD HEALTH MAINTENANCE Final Result * Serum Hepatitis C ab (02/16/2016 7:29 AM CDT) HCV ab Negative Negative CDR HISTOR ICAL RESULTS Serum 02/16/2016 7:29 AM CDT Whitney Castillo MD LAB BLOOD ORDERABLES Final Result CDR HISTORICAL RESULTS from Last 3 Months or Most Recently Relevant to Health Maintenance Insurance MEDICARE MEDICARE [facility] MEDICARE SUPPLEMENT [facility] CLAIMS OFFICE MEDICARE Advance Directives For more information, please contact: [phone] * Full Code (Latest Code Status on [...] 5:37 PM 05/31/2019 7:35 PM Care Teams It Administrator Relationship Specialty Start Date End Date Kwadwo Roque MD PCP - General Family Practice 03/01/21
[2024-08-13 19:37] LABS: Alanine Aminotransferase 23 U/L (6-50); Albumin Level 4.7 g/dL (3.5-5.1); Alkaline Phosphatase 60 U/L (38-126); Anion Gap 11 mmol/L (4-12); Aspartate Amino Transferase 48 U/L (17-59); Bilirubin,Total 0.3 mg/dL (0.2-1.3); Blood Urea Nitrogen 27 mg/dL (9-20); Calcium 9.6 mg/dL (8.4-10.2); Carbon Dioxide 25 mmol/L (22-30); Chloride 106 mmol/L (98-107); Cholesterol 157 mg/dL (0-200); Estimated Glomerular Filt Rate 42; Glucose 140 mg/dL (65-110); HDL Direct 36 mg/dL; Potassium 4.9 mmol/L (3.4-5.0); Sodium 142 mmol/L (137-145); Triglycerides 422 mg/dL (<150)
[2024-08-13 19:48] LABS: LDL Cholesterol Direct 34 mg/dL
== END 2024-08-13 07:07 | disposition home or self-care (01) ==
PROVIDERS: PCP Nurse Practitioner Adult Health; Visit Provider Internal Medicine Cardiovascular Disease
DX: E78.5 Hyperlipidemia, unspecified (principal)
CPT/HCPCS: 36415; 80053; 80061

== ENCOUNTER 2024-09-05 14:21 | Outpatient (CLI) | payer MEDICARE, SELFPAY ==
--- NOTE | 2024-09-05 14:28 | ECHO_ITS ---
Patient Info Name: Musa Amaya Age: 74 years : 1950 Gender: Male Ht: 69 in Wt: 250 lbs BSA: 2.40 m2 HR: 70 bpm BP: 159 / 74 mmHg Technical Quality: Good Exam Date: 09/05/2024 2:47 PM Exam Location: Echo Lab Patient Status: Outpatient Admit Date: 09/05/2024 Staff Ordering Physician: Elijah Simms DO Switching Operator: Shaylee Bowie RDCS Attending Provider: Elijah Simms DO Referring Physician: Mendez LAWSON; Exam Type: CA echo doppler color flow Study Info Indications R06.09 - Other forms of dyspnea Complete two-dimensional, color flow and Doppler transthoracic echocardiogram is performed. Summary 1. Complete two-dimensional, color flow and Doppler transthoracic echocardiogram is performed. 2. Left ventricular chamber dimension is normal. 3. Left ventricular systolic function is normal, estimated at 60-65%. 4. There is mild concentric increased left ventricular wall thickness. 5. The left ventricular diastolic function is grade I diastolic dysfunction. 6. E/e' 14 is mildly elevated. 7. Left atrial chamber dimension is mildly enlarged. 8. There is mild mitral valve regurgitation. 9. There is trace tricuspid valve regurgitation. 10. No pulmonary hypertension, estimated pulmonary arterial systolic pressure is 31 mmHg. Left Ventricle E/e' 14 is mildly elevated. Left ventricular chamber dimension is normal. Left ventricular systolic function is normal, estimated at 60-65%. There is mild concentric increased left ventricular wall thickness. The left ventricular diastolic function is grade I diastolic dysfunction. Right Ventricle Right ventricular systolic function is normal and with normal TAPSE 2.0 cm. Right ventricular chamber dimension is normal. Left Atria Left atrial chamber dimension is mildly enlarged. Right Atria Right atrial chamber dimension is normal. Aortic Valve The aortic valve is trileaflet. There is no aortic valve stenosis. There is no aortic valve regurgitation. Pulmonic Valve There is no pulmonic regurgitation. Mitral Valve There is no mitral valve stenosis. There is mild mitral valve regurgitation. Tricuspid Valve There is trace tricuspid valve regurgitation. No pulmonary hypertension, estimated pulmonary arterial systolic pressure is 31 mmHg. Pericardium/Pleural There is no pericardial effusion. Inferior Vena Cava Normal inferior vena cava with >50% collapse upon inspiration consistent with normal right atrial pressure, 5 mmHg. Aorta The aortic root size at the sinus of Valsalva is normal. Left Ventricular Outflow Tract Name Value Normal LVOT 2D LVOT Diameter 2.0 cm LVOT Doppler LVOT Peak Gradient 6 mmHg LVOT Mean Gradient 3 mmHg LVOT VTI 24 cm LVOT VTI/AV VTI Ratio 0.7 LVOT Stroke Volume 78 ml LVOT CO 16.1 l/min LVOT CI 6.7 l/min/m2 Pulmonic Valve Name Value Normal PV Doppler PV Peak Gradient 9 mmHg Mitral Valve Name Value Normal MV Doppler MV Decel Stewart 525 cm/s2 MV PHT 64 ms MV Area (PHT) 3.4 cm2 4.0-5.0 MV Diastolic Function MV E Peak Velocity 116 cm/s MV A Peak Velocity 122 cm/s MV E/A 1.0 MV Decel Time 221 ms MV Annular TDI MV E/e' (Septal) 14.0 <=8.0 MV E/e' (Lateral) 16.1 <=8.0 MV E/e' (Average) 15.0 Tricuspid Valve Name Value Normal TV Regurgitation Doppler TR Peak Velocity 255 cm/s TR Peak Gradient 25 mmHg Estimated PAP/RSVP RA Pressure 5 mmHg <=5 PA Systolic Pressure 31 mmHg <36 RV Systolic Pressure 31 mmHg <36 Aorta Name Value Normal Ascending Aorta Ao Root Diameter (MM) 3.2 cm Ao Root Diam Index (MM) 1.3 cm/m2 Aortic Valve Name Value Normal AV Doppler AV Peak Velocity 165 cm/s AV Peak Gradient 11 mmHg AV Mean Gradient 6 mmHg AV VTI 34 cm AV Area (Cont Eq VTI) 2.3 cm2 >=3.0 AV Area (Cont Eq Danie) 2.3 cm2 AV Regurgitation 2D LVOT Area 3.2 cm2 Ventricles Name Value Normal LV Dimensions 2D/MM IVS Diastolic Thickness (2D) 1.2 cm 0.6-1.0 LVID Diastole (2D) 4.8 cm 4.2-5.8 LVIW Diastolic Thickness (2D) 1.2 cm 0.6-1.0 LVID Systole (2D) 3.0 cm 2.5-4.0 LVOT Diameter 2.0 cm LV Mass (2D Cubed) 210.40 g 88.00-224.00 LV Mass Index (2D Cubed) 88 g/m2 49-115 Relative Wall Thickness (2D) 0.50 LV Fractional Shortening/Ejection Fraction 2D/MM LV Fractional Shortening (2D) 38 % 25-43 LV EF (2D Teicholz) 68 % 52-72 LV Diastolic Volume (4C MOD) 130 ml LV EF (4C MOD) 59 % LV Diastolic Volume (2C MOD) 92 ml LV EF (2C MOD) 70 % LV Diastolic Volume (BP MOD) 111 ml 62-150 LV Diastolic Volume Index (BP MOD) 46 ml/m2 34-74 LV Systolic Volume (BP MOD) 40 ml 21-61 LV Systolic Volume Index (BP MOD) 17 ml/m2 11-31 LV EF (BP MOD) 64 % 52-72 LV Diastolic Length (4C) 7.8 cm LV Systolic Length (4C) 6.4 cm LV Stroke Volume (4C MOD) 76 ml Atria Name Value Normal LA Dimensions LA Dimension (MM) 4.2 cm 3.0-4.1 LA Volume (4C A-L) 45 ml LA Volume (BP A-L) 54 ml RA Dimensions RA Area (4C) 16.1 cm2 <=18.0 Report Signatures
--- OUTSIDE RECORDS SUMMARY | 2024-09-05 14:50 | XMS_ITS | Referral Summary ---
Author Organization [facility] Address [id number] [place] [id number] Care Team Providers Care Claims Configuration Analyst Name Role Phone Kwadwo Roque MD Primary Care Provider [phone] [phone] Encounters Date Type Department Care Team Description 06/12/2024 2:30 PM MOSQUITO SPRAYER Ancillary Procedure [place] Progressive Care Manager [address] [address] Coronary artery disease involving [place] coronary artery of hop[place] heart without angina pectoris; Pacemaker; SSS (sick [...] (03/09/2021): Added automatically from request for surgery [id number] Syncope and collapse 03/02/2021 Overview (03/17/2021): Cardiac monitoring showed high-grade AV block. Status post Biotronik Edora 8 DRT on 10 March 2021 (RL). Personal history of colonic polyps 05/14/2020 Overview (05/14/2020): Added automatically from request for surgery [id number] Pre-op chest exam 05/14/2020 Overview (05/14/2020): Added automatically from request for surgery [id number] Arthritis of left knee 04/09/2020 Assessment & Plan (04/09/2020 3:42 PM MOSQUITO SPRAYER): Patient has moderate arthritis of the knee with reactive synovitis. He has prominence of the tibial tubercle and may have chronic patella tendinitis. After reviewing the treatment options patient elected undergo a cortisone injection today. He tolerated the procedure well. History of colon polyps 05/23/2019 Overview (05/23/2019): Added automatically from request for surgery [id number] Screen for colon cancer 05/23/2019 Overview (05/23/2019): Added automatically from request for surgery [id number] s/p XLIF L3-4 and L4-5 on 05/2019, [...] (09/09/2016): Hyperlipidemia Coronary artery disease invo lving [place] coronary artery of [place] heart without angina pectoris 10/19/2013 Overview (09/07/2016): [...] on file Legal Sex Male 7:41 PM MOSQUITO SPRAYER Gender Identity Not on file Sexual Orientation [...] on file Medical Devices Implanted Type Area Financial Accounting Manager Device Identifier Shelf Expiration Date Model / Serial / Lot Biotronik Inc [id number] Endocardial Pacing Lead Promri Solia Jt 45 - [id number] - [id number] Implanted:Qty: 1 on 03/10/2021 by Ben Casillas MD at [facility] Lead Biotronik Inc 01/02/2023 [id number] / [id number] / Biotronik Inc [id number] Endocardial Pacing Lead Promri Solia T 53 - [id number] - [id number] Implanted:Qty: 1 on 03/10/2021 by Ben Casillas MD at [facility] Lead Biotronik Inc 10/02/2022 3771 80 / [id number] / Biotronik Inc [id number] Edora Promri 56v82v5.5mm Dual Chamber Rate Adaptive Unipolar Bipolar - [id number] - [id number] Implanted:Qty: 1 on 03/10/2021 by Ben Casillas MD at [facility] Pacemaker Biotronik Inc 06/04/2022 4071 45 / [id number] / Medtronic Sofamor Danek [id number] Infuse 14mm 23mm Absorbable Sponge Sterile Water Syringe Needle - [id number] Implanted:Qty: 1 on 08/14/2018 by Rajesh Tay MD at [facility] N/A: Spine Lumbar Medtronic Sofamor Danek 08/02/2020 [id number] / / [id number] Spacer Spinal [id number] 10d Xl Wide Peek Lordotic - [id number] - [id number] Implanted:Qty: 1 on 08/14/2018 by Rajesh Tay MD at [facility] N/A: Spine Lumbar Nuvasive Creative Spine Tech [id number] / [id number] / Spinal Graft Tech [id number] [place] Putty Jar Graft 5cc Bone Demineralized Bone Matrix - [id number] - [id number] Implanted:Qty: 1 on 08/14/2018 by Rajesh Tay MD at [facility] N/A: Spine Lumbar Spinal Graft Tech 01/14/2021 [id number] / [id number] / Medtronic Spinal Graft [id number] [place] Putty Filler 1cc Bone Void Demineralized Bone Matrix - [id number] - [id number] Implanted:Qty: 1 on 08/14/2018 by Rajesh Tay MD at [facility] N/A: Spine Lumbar Medtronic Spinal Graft 02/06/2021 [id number] / [id number] / Cage Spinal [id number] Modulus 10d Xl Wide Strl Ltxfre - [id number] - [id number] Implanted:Qty: 1 on 08/14/2018 by Rajesh Tay MD at [facility] N/A: Spine Lumbar Nuvasive Creative Spine Tech 02/11/2023 [id number] / [id number] / [id number] Depuy Spine [id number] Expedium 7mm 55mm 1 Innie Polyaxial Spine Screw Bone Titanium - [id number] Implanted:Qty: 4 on 08/16/2018 by Rajesh Tay MD at [facility] N/A: Spine Lumbar Depuy Spine [id number] / / Depuy Spine [id number] Expedium 7mm 50mm 1 Innie Polyaxial Spine Screw Bone Titanium - [id number] Implanted:Qty: 2 on 08/16/2018 by Rajesh Tay MD at [facility] N/A: Spine Lumbar Depuy Spine [id number] / / Depuy Spine [id number] Expedium 1 Inner Monoaxial Spine Screw Set Titanium - [id number] Implanted:Qty: 6 on 08/16/2018 by Rajesh Tay MD at [facility] N/A: Spine Lumbar Depuy Spine [id number] / / Depuy Spine [id number] Expedium 5.5mm 75mm Line Prebent Beto Spinal Titanium Nonsterile - [id number] Implanted:Qty: 2 on 08/16/2018 by Rajesh Tay MD at [facility] N/A: Spine Lumbar Depuy Spine [id number] / / Musculoskeletal Transplant [id number] Allograft Putty Freeze Dried Filler 5cc Bone Void Dbx - [id number] - [id number] Implanted:Qty: 1 on 08/16/2018 by Rajesh Tay MD at [facility] N/A: Spine Lumbar Musculoskeletal Transplant 04/24/2020 [id number] / [id number] / Procedures Procedure Name Priority Date/Time Associated Diagnosis Comments DEVICE CHECK - REMOTE Routine 06/11/2024 10:10 AM MOSQUITO SPRAYER Coronary artery disease involving [place] coronary artery of hop[place] heart without angina pectoris Pacemaker SSS (sick sinus syndrome) (HCC) High degree atrioventricular block CT LUNG CANCER SCREENING Schedule Routine, Read Routine (OP Routine) 05/06/2021 1:38 PM MOSQUITO SPRAYER History of tobacco abuse ABDOMINAL AORTA Schedule Routine, Read Routine (OP Routine) 05/06/2021 12:51 PM MOSQUITO SPRAYER History of tobacco abuse EGFR STAT 03/09/2021 3:00 PM CDT COLONOSCOPY 06/26/2020 8:41 AM MOSQUITO SPRAYER HEMOGLOBIN A1C Routine 08/10/2018 1:43 PM MOSQUITO SPRAYER Preop testing DIABETES FOOT EXAM Routine 03/20/2017 LIPID PANEL WITH REFLEX TO DIRECT LDL Routine 03/11/2017 1:00 PM CDT Hyperlipidemia, unspecified hyperlipidemia type DIABETES EYE EXAM Routine 09/15/2016 SERUM HEPATITIS C AB Routine 02/16/2016 7:29 AM CDT from Last 3 Months or Most Recently Relevant to Health Maintenance Results * DEVICE CHECK - REMOTE (06/11/2024 10:10 AM MOSQUITO SPRAYER) Anatomical Region Laterality Modality Other Narrative 06/15/2024 11:41 PM MOSQUITO SPRAYER Images from the original result were not included. 06/12/2024 [employer] quarterly remote device check NOTE The following shows snippets from the complete quarterly report. The complete report in its entirety is attached to this Result Text in Electrical Prospecting Observer Periodic IEGM Detection Jun 05, 2024: Dual [...] CT Lung Cancer Screening (05/06/2021 1:38 PM MOSQUITO SPRAYER) Anatomical Region Laterality Modality Chest N/A Computed Tomogra phy 05/06/2021 2:11 PM MOSQUITO SPRAYER Narrative 05/06/2021 2:21 PM MOSQUITO SPRAYER EXAM DESCRIPTION: CT LUNG CANCER SCREENING REASON [...] by Radha Diaz M.D. : Report ID: [id number] Reading Location: [id number] Procedure Note Radha Diaz MD - 05/06/2021 [...] by Radha Diaz M.D. : Report ID: [id number] Reading Location: [id number] us Kwadwo Roque MD IMG CT PROCEDURES Final R esult * US Abdominal Aorta (05/06/2021 12:51 PM MOSQUITO SPRAYER) Anatomical Region Laterality Modality Abdomen N/A Ultrasound 05/06/2021 1:06 PM MOSQUITO SPRAYER Narrative 05/06/2021 1:09 PM MOSQUITO SPRAYER EXAM DESCRIPTION: US ABDOMINAL AORTA REASON FOR [...] signed by Brysonchristian ALVARADO: JENNY Report ID: [id number] Reading Location: [id number] Procedure Note Bryson Macias MD - 05/06/2021 [...] Bryson Macias M.D. JA: JENNY Report ID: [id number] Reading Location: [id number] us Kwadwo Roque MD IMG US PROCEDURES [...] LAB BLOOD ORDERABLES Final Re sult DOUG [facility] Department of Laboratories [place], [place] [id number] * COLONOSCOPY (06/26/2020 8:41 AM MOSQUITO SPRAYER) Anatomical Region Laterality Modality Other Narrative Procedure Note Connor Patel MD - 06/26/2020 8:41 AM CST [facility] Patient Name: Musa Amaya Procedure Date: 06/26/2020 8:41 AM Date of : 1950 Admit Type: Outpatient Age: 70 Gender: Male Attending MD: Connor Patel M.D. Room: [facility] ENDOSCOPY ROOM 2 Note Status: Finalized Patient [...] The scopewas passed under direct vision. The [id number] was introduced through the anus andadvanced to [...] 8:41 AM Procedure Code(s): --- Professional --- 73204, Colonoscopy, flexible; diagnostic, including collection of specimen(s) by brushing or washing, when performed (separateprocedure) Diagnosis Code(s): --- Professional --- K64.9, Unspecified hemorrhoids CPT copyright 2017 [employer]. All rights reserved. The codes documented in this report are preliminary and upon manager presentation reviewmay be revised to meet current compliance requirements. Recognized by the [employer] for promoting quality in endoscopy Connor Patel MD ENDOSCOPY PROCEDURES Final Re sult * (ABNORMAL) Hemoglobin A1c (08/10/2018 1:43 PM MOSQUITO SPRAYER) Pathologist [facility] Hgb A1C 6.9(H) 4.0 - 5.6 % DOUG Estimated Average Glucose 151 mg/dL DOUG Comment: The ADA recommends reporting an estimated Average Glucose (eAG) with all Hemoglobin A1c results using the equation derived from a study of 507 normal and diabetic adults. Minority populations were underrepresented and children were not included. (Diabetes Care 31:9782-8804, 2008). The eAG is not equivalent to a fasting glucose. Blood specimen (specimen) 08/10/2018 1:43 PM MOSQUITO SPRAYER 08/10/2018 4:10 PM MOSQUITO SPRAYER Narrative DOUG - 08/10/2018 4:53 PM MOSQUITO SPRAYER Rajesh Tay MD LAB BLOOD ORDERABLES F inal Result [facility] [address] [address] Department [place] [address] * DIABETES FOOT EXAM (03/20/2017) Pathologist [facility] Diabetic Foot Exam Normal Historical Provider HEALTH MAINTENANCE Final Result * (ABNORMAL) Lipid panel with reflex to direct LDL (03/11/2017 1:00 PM CDT) Pathologist [facility] Cholesterol 146 100 - 200 mg/dL DOUG [...] Castillo MD LAB BLOOD ORDERABLES Final Result [facility] [address] [address] Department of Laboratories [place] [id number] * DIABETES EYE EXAM (09/15/2016) Diabetic Eye [...] Advance Directives For more information, please contact: [phone] * Full Code (Latest Code Status on [...] 5:37 PM 05/31/2019 7:35 PM Care Teams Claims Configuration Analyst Relationship Specialty Start Date End Date Kwadwo Roque MD PCP - General Family Practice 03/01/21
--- OUTSIDE RECORDS SUMMARY | 2024-09-05 14:50 | XMS_ITS | Clinical Summary ---
Author Organization [facility] Address [address] [place] [address] [address] Team [address] Care [address] Freight Brake Coupler Name Role Phone Kwadwo Roque MD Primary Care Provider +1 [phone] Allergies No known active allergies Medications lancets [...] (03/09/2021): Added automatically from request for surgery [id number] Syncope and collapse 03/02/2021 Overview (03/17/2021): Cardiac monitoring showed high-grade AV block. Status post Biotronik Edora 8 DRT on 10 March 2021 (RL). Personal history of colonic polyps 05/14/2020 Overview (05/14/2020): Added automatically from request for surgery [id number] Pre-op chest exam 05/14/2020 Overview (05/14/2020): Added automatically from request for surgery [id number] Arthritis of left knee 04/09/2020 Assessment & Plan (04/09/2020 3:42 PM INSURANCE AGENCY SALES MANAGER): Patient has moderate arthritis of the knee with reactive synovitis. He has prominence of the tibial tubercle and may have chronic patella tendinitis. After reviewing the treatment options patient elected undergo a cortisone injection today. He tolerated the procedure well. History of colon polyps 05/23/2019 Overview (05/23/2019): Added automatically from request for surgery [id number] Screen for colon cancer 05/23/2019 Overview (05/23/2019): Added automatically from request for surgery [id number] s/p XLIF L3-4 and L4-5 on 05/2019, [...] (09/09/2016): Hyperlipidemia Coronary artery disease invo lving [place] coronary artery of [place] heart without angina pectoris 10/19/2013 Overview (09/07/2016): [...] Department Care Team Description 06/12/2024 2:30 PM INSURANCE AGENCY SALES MANAGER Ancillary Procedure [place] [employer] [address] [place] [address] Coronary artery disease involving [place] coronary artery of [place] heart without angina pectoris; Pacemaker; SSS (sick [...] pain, turned tractor Hx Other Medical silent NE Hyperlipidemia Hyperlipidemia Hx Other Medical left eye [...] on file Legal Sex Male 7:41 PM INSURANCE AGENCY SALES MANAGER Gender Identity Not on file Sexual Orientation [...] 05/06/2021, 11/28/2015 Medical Devices Implanted Type Area Ceramic Engineer Device Identifier Shelf Expiration Date Model / Serial / Lot Biotronik Inc [id number] Endocardial Pacing Lead Promri Solia Jt 45 - [id number] - [id number] Implanted:Qty: 1 on 03/10/2021 by Ben Casillas MD at [facility] Lead Biotronik Inc 01/02/2023 3996 26 / [id number] / Biotronik Inc [id number] Endocardial Pacing Lead Promri Solia T 53 - [id number] - [id number] Implanted:Qty: 1 on 03/10/2021 by Ben Casillas MD at [facility] Lead Biotronik Inc 10/02/2022 3771 80 / [id number] / Biotronik Inc [id number] Edora Promri 44i71h3.5mm Dual Chamber Rate Adaptive Unipolar Bipolar - [id number] - [id number] Implanted:Qty: 1 on 03/10/2021 by Ben Casillas MD at [facility] Pacemaker Biotronik Inc 06/04/2022 4071 45 / [id number] / Medtronic Sofamor Danek [id number] Infuse 14mm 23mm Absorbable Sponge Sterile Water Syringe Needle - [id number] Implanted:Qty: 1 on 08/14/2018 by Rajesh Tay MD at [facility] N/A: Spine Lumbar Medtronic Sofamor Danek 08/02/2020 [id number] / / [id number] Spacer Spinal [id number] 10d Xl Wide Peek Lordotic - [id number] - [id number] Implanted:Qty: 1 on 08/14/2018 by Rajesh Tay MD at [facility] N/A: Spine Lumbar Nuvasive Creative Spine Tech [id number] / [id number] / Spinal Graft Tech [id number] [place] Putty Jar Graft 5cc Bone Demineralized Bone Matrix - [id number] - [id number] Implanted:Qty: 1 on 08/14/2018 by Rajesh Tay MD at [facility] N/A: Spine Lumbar Spinal Graft Tech 01/14/2021 [id number] / [id number] / Medtronic Spinal Graft [id number] [place]as Putty Filler 1cc Bone Void Demineralized Bone Matrix - [id number] - [id number] Implanted:Qty: 1 on 08/14/2018 by Rajesh Tay MD at [facility] N/A: Spine Lumbar Medtronic Spinal Graft 02/06/2021 [id number] / [id number] / Cage Spinal [id number] Modulus 10d Xl Wide Strl Ltxfre - [id number] - [id number] Implanted:Qty: 1 on 08/14/2018 by Rajesh Tay MD at [facility] N/A: Spine Lumbar Nuvasive Creative Spine Tech 02/11/2023 [id number] / [id number] / [id number] Depuy Spine [id number] Expedium 7mm 55mm 1 Innie Polyaxial Spine Screw Bone Titanium - [id number] Implanted:Qty: 4 on 08/16/2018 by Rajesh Tay MD at [facility] N/A: Spine Lumbar Depuy Spine [id number] / / Depuy Spine [id number] Expedium 7mm 50mm 1 Innie Polyaxial Spine Screw Bone Titanium - [id number] Implanted:Qty: 2 on 08/16/2018 by Rajesh Tay MD at [facility] N/A: Spine Lumbar Depuy Spine [id number] / / Depuy Spine [id number] Expedium 1 Inner Monoaxial Spine Screw Set Titanium - [id number] Implanted:Qty: 6 on 08/16/2018 by Rajesh Tay MD at [facility] N/A: Spine Lumbar Depuy Spine [id number] / / Depuy Spine [id number] Expedium 5.5mm 75mm Line Prebent Beto Spinal Titanium Nonsterile - [id number] Implanted:Qty: 2 on 08/16/2018 by Rajesh Tay MD at [facility] N/A: Spine Lumbar Depuy Spine [id number] / / Musculoskeletal Transplant [id number] Allograft Putty Freeze Dried Filler 5cc Bone Void Dbx - [id number] - [id number] Implanted:Qty: 1 on 08/16/2018 by Rajesh Tay MD at [facility] N/A: Spine Lumbar Musculoskeletal Transplant 04/24/2020 [id number] / [id number] / Procedures Procedure Name Priority Date/Time Associated Diagnosis Comments DEVICE CHECK - REMOTE Routine 06/11/2024 10:10 AM INSURANCE AGENCY SALES MANAGER Coronary artery disease involving [place] coronary artery of [place] heart without angina pectoris Pacemaker SSS (sick sinus syndrome) (HCC) High degree atrioventricular block CT LUNG CANCER SCREENING Schedule Routine, Read Routine (OP Routine) 05/06/2021 1:38 PM INSURANCE AGENCY SALES MANAGER History of tobacco abuse US ABDOMINAL AORTA Schedule Routine, Read Routine (OP Routine) 05/06/2021 12:51 PM INSURANCE AGENCY SALES MANAGER History of tobacco abuse EGFR STAT 03/09/2021 3:00 PM CDT COLONOSCOPY 06/26/2020 8:41 AM INSURANCE AGENCY SALES MANAGER HEMOGLOBIN A1C Routine 08/10/2018 1:43 PM INSURANCE AGENCY SALES MANAGER Preop testing DIABETES FOOT EXAM Routine 03/20/2017 LIPID PANEL WITH REFLEX TO DIRECT LDL Routine 03/11/2017 1:00 PM CDT Hyperlipidemia, unspecified hyperlipidemia type DIABETES EYE EXAM Routine 09/15/2016 SERUM HEPATITIS C AB Routine 02/16/2016 7:29 AM CDT from Last 3 Months or Most Recently Relevant to Health Maintenance Results * DEVICE CHECK - REMOTE (06/11/2024 10:10 AM INSURANCE AGENCY SALES MANAGER) Anatomical Region Laterality Modality Other Narrative 06/15/2024 11:41 PM INSURANCE AGENCY SALES MANAGER Images from the original result were not included. 06/12/2024 [employer] quarterly remote device check NOTE The following shows snippets from the complete quarterly report. The complete report in its entirety is attached to this Result Text in Metrology Specialist Periodic IEGM Detection Jun 05, 2024: Dual [...] CT Lung Cancer Screening (05/06/2021 1:38 PM INSURANCE AGENCY SALES MANAGER) Anatomical Region Laterality Modality Chest N/A Computed Tomogra phy 05/06/2021 2:11 PM INSURANCE AGENCY SALES MANAGER Narrative 05/06/2021 2:21 PM INSURANCE AGENCY SALES MANAGER EXAM DESCRIPTION: CT LUNG CANCER SCREENING REASON [...] by Radha Diaz M.D. : Report ID: [id number] Reading Location: [place] [address] Procedure Note Radha Diaz MD - 05/06/2021 [...] by Radha Diaz M.D. : Report ID: [id number] Reading Location: [id number] us Kwadwo Roque MD IMG CT PROCEDURES Final R esult * US Abdominal Aorta (05/06/2021 12:51 PM INSURANCE AGENCY SALES MANAGER) Anatomical Region Laterality Modality Abdomen N/A Ultrasound 05/06/2021 1:06 PM INSURANCE AGENCY SALES MANAGER Narrative 05/06/2021 1:09 PM INSURANCE AGENCY SALES MANAGER EXAM DESCRIPTION: US ABDOMINAL AORTA REASON FOR [...] Bryson Macias M.D. JA: JENNY Report ID: [id number] Reading Location: [id number] Procedure Note Bryson Macias MD - 05/06/2021 [...] Bryson Macias M.D. JA: JENNY Report ID: [id number] Reading Location: [place] [address] us Kwadwo Roque MD IMG US PROCEDURES [...] Final Re sult [facility] ([place]) 1 [facility] Department [place] [address] * COLONOSCOPY (06/26/2020 8:41 AM INSURANCE AGENCY SALES MANAGER) Anatomical Region Laterality Modality Other Narrative Procedure Note Jorge, Connor R., MD - 06/26/2020 8:41 AM CST [facility] Patient Name: Musa Amaya Procedure Date: 06/26/2020 8:41 AM Date of : 1950 Admit Type: Outpatient Age: 70 Gender: Male Attending MD: Connor Patel M.D. Room: [facility] ENDOSCOPY ROOM 2 Note Status: Finalized [...] The scopewas passed under direct vision. The [id number] was introduced through the anus andadvanced to [...] 8:41 AM Procedure Code(s): --- Professional --- 36484, Colonoscopy, flexible; diagnostic, including collection of specimen(s) by brushing or washing, when performed (separateprocedure) Diagnosis Code(s): --- Professional --- K64.9, Unspecified hemorrhoids CPT copyright 2017 [employer]. All rights reserved. The codes documented in this report are preliminary and upon hot baller reviewmay be revised to meet current compliance requirements. Recognized by the [employer] for promoting quality in endoscopy us Connor Patel MD ENDOSCOPY PROCEDURES Final Re sult * (ABNORMAL) Hemoglobin A1c (08/10/2018 1:43 PM INSURANCE AGENCY SALES MANAGER) Hgb A1C 6.9(H) 4.0 - 5.6 % DOUG MOTA Estimated Average Glucose 151 mg/dL DOUG MOTA Comment: The ADA recommends reporting an estimated Average Glucose (eAG) with all Hemoglobin A1c results using the equation derived from a study of 507 normal and diabetic adults. Minority populations were underrepresented and children were not included. (Diabetes Care 31:9433-7061, 2008). The eAG is not equivalent to a fasting glucose. Blood specimen (specimen) 08/10/2018 1:43 PM INSURANCE AGENCY SALES MANAGER 08/10/2018 4:10 PM INSURANCE AGENCY SALES MANAGER Narrative DOUG MOTA - 08/10/2018 4:53 PM INSURANCE AGENCY SALES MANAGER Rajesh Tay MD LAB BLOOD ORDERABLES F inal Result DOUG [address] [address] Department [place] [address] * DIABETES FOOT EXAM (03/20/2017) Diabetic Foot [...] LAB BLOOD ORDERABLES Final Result DOUG MOTA [address] [address] Department [place] [address] * DIABETES EYE EXAM (09/15/2016) Diabetic Eye [...] Relevant to Health Maintenance Insurance MEDICARE MEDICARE [facility] MEDICARE SUPPLEMENT [facility] CLAIMS OFFICE MEDICARE Advance Directives For more information, please contact: [phone] * Full Code (Latest Code Status on [...] 5:37 PM 05/31/2019 7:[address] Freight Brake Coupler Relationship Specialty Start Date End Date Kwadwo Roque MD PCP - General Family Practice 03/01/21
== END 2024-09-05 14:22 | disposition home or self-care (01) ==
LOC: ANHCARD 14:25
PROVIDERS: PCP Nurse Practitioner Adult Health; Visit Provider Internal Medicine Cardiovascular Disease
DX: R06.09 Other forms of dyspnea (principal); I34.0 Nonrheumatic mitral (valve) insufficiency
CPT/HCPCS: 93306

== ENCOUNTER 2024-10-22 09:22 | Observation (INO) | payer MEDICARE, SELFPAY ==
[2024-10-22] VITALS (17 sets, daily range): BP systolic 117–174; BP diastolic 40–69; PULSE 62–76; RESP 16–21; TEMP 36.5–36.8; O2SAT 97–99; BMI 37.0
--- NOTE | ~2024-10-22 | NM_ITS ---
EXAMINATION: NM martina stress w perfusion DATE: 10/23/2024 12:57 CDT INDICATION: Chest pain TECHNIQUE: Rest images were obtained following intravenous administration of 9.6 mCi Tc99m tetrofosmi n (Myoview). The patient was infused intravenously with Lexiscan (regadenoson). Then, 29.7 mCi Tc99m tetrofosmin (Myoview) was administered intravenously, and stress images were obtained. Data was recon structed into short axis and horizontal and vertical long axis SPECT images. Gated SPECT images were also obtained. COMPARISON: None. FINDINGS: There is no definite reversible or fixed perfusion abnormality to suggest ischemia or infar ction. There is no segmental wall motion abnormality. Left ventricular ejection fraction measures 6 9%. IMPRESSION: 1. No definite ischemia or infarct. 2. Normal left ventricular ejection fraction measuring 69%. Reviewed, dictated and finalized at location B.
--- NOTE | ~2024-10-22 | XR_ITS ---
XR chest 2V Ordering provider: Chelsea Tapia MD History: 74 years Male with . chest pain, SOB . Comparison: None. FINDINGS: MEDIASTINUM: The cardiac silhouette is slightly enlarged. Left bipolar pacemaker. Congestive uriel. LUNGS: No infiltrates, effusions or pneumothorax. OTHER: No free air under the diaphragm. Degenerative changes of the spine. IMPRESSION: No acute cardiopulmonary pathology. Reviewed, dictated and finalized at location A.
--- NOTE | 2024-10-22 09:26 | ECG_ITS ---
Test Date: 2024-10-22 09:33:25 Measurements Intervals [place] Rate: 64 P: 0 LA: 0 QRS: -69 QRSD: 161 T: 107 QT: 420 QTc: 436 Interpretive Statements SINUS RHYTHM WITH FIRST-DEGREE AV BLOCK, ATRIAL SENSING AND VENTRICULAR PACING ELECTRONIC VENTRICULAR PACEMAKER ABNORMAL RHYTHM ECG Compared to ECG 01/05/2024 09:13:18 NO SIGNIFICANT CHANGES Electronically Signed On 10-22-2024 13:37:13 CDT by Demetrius Aguila M.D.
--- OUTSIDE RECORDS SUMMARY | 2024-10-22 09:36 | XMS_ITS | Clinical Summary ---
Author Organization [facility] Address [address] [place] [id number] Care Team Providers Care Loom Cleaner Name Role Phone Kwadwo Roque MD Primary Care Provider [phone] [phone] Allergies No known active allergies Medications lancets [...] (03/09/2021): Added automatically from request for surgery [id number] Syncope and collapse 03/02/2021 Overview (03/17/2021): Cardiac monitoring showed high-grade AV block. Status post Biotronik Edora 8 DRT on 10 March 2021 (RL). Personal history of colonic polyps 05/14/2020 Overview (05/14/2020): Added automatically from request for surgery [id number] Pre-op chest exam 05/14/2020 Overview (05/14/2020): Added automatically from request for surgery [id number] Arthritis of left knee 04/09/2020 Assessment & Plan (04/09/2020 3:42 PM WEB ASSISTANT): Patient has moderate arthritis of the knee with reactive synovitis. He has prominence of the tibial tubercle and may have chronic patella tendinitis. After reviewing the treatment options patient elected undergo a cortisone injection today. He tolerated the procedure well. History of colon polyps 05/23/2019 Overview (05/23/2019): Added automatically from request for surgery [id number] Screen for colon cancer 05/23/2019 Overview (05/23/2019): Added automatically from request for surgery [id number] s/p XLIF L3-4 and L4-5 on 05/2019, [...] (09/09/2016): Hyperlipidemia Coronary artery disease invo lving augustine coronary artery of augustine heart without angina pectoris 10/19/2013 Overview (09/07/2016): CAD (coronary artery disease) Type 2 diabetes mellitus with hyperglycemia 04/06 Overview (09/08/2016): Type II diabetes mellitus Chronic bronchitis 01/24/2013 Overview (09/08/2016): Chronic bronchitis Hypertension 03/12/2012 Overview (09/08/2016): Hypertension Chest pain Type 2 diabetes mellitus with other specified co mplication Class 2 obesity without serious comorbidity in a dult Encounters Date Type Department Care Team Description 09/11/2024 1:00 PM CDT Ancillary Procedure [place] [facility] Cover Inspector [address] [place] [phone] Coronary artery disease involving augustine coronary artery of augustine heart without angina pectoris; Pacemaker; SSS (sick [...] on file Legal Sex Male 7:41 PM WEB ASSISTANT Gender Identity Not on file Sexual Orientation [...] 06/10/2019, 07/18/2016, Additional history exists Influenza Vaccine (Season Ended) 2025 05/31/2019, 03/20/2017, 05/01/2015, Additional history exists Hepatitis C [...] 05/06/2021, 11/28/2015 Medical Devices Implanted Type Area Inserter Operator Device Identifier Shelf Expiration Date Model / Serial / Lot Biotronik Inc [id number] Endocardial Pacing Lead Promri Solia Jt 45 - [id number] - [id number] Implanted:Qty: 1 on 03/10/2021 by Ben Casillas MD at [facility] Lead Biotronik Inc 01/02/2023 [id number] / [id number] / Biotronik Inc [id number] Endocardial Pacing Lead Promri Solia T 53 - [id number] - [id number] Implanted:Qty: 1 on 03/10/2021 by Ben Casillas MD at [facility] Lead Biotronik Inc 10/02/2022 [id number] 80 / [id number] / Biotronik Inc [id number] Edora Promri 18e03c4.5mm Dual Chamber Rate Adaptive Unipolar Bipolar - [id number] - [id number] Implanted:Qty: 1 on 03/10/2021 by Ben Casillas MD at [facility] Pacemaker Biotronik Inc 06/04/2022 4071 45 / [id number] / Medtronic Sofamor Danek [id number] Infuse 14mm 23mm Absorbable Sponge Sterile Water Syringe Needle - [id number] Implanted:Qty: 1 on 08/14/2018 by Rajesh Tay MD at [facility] N/A: Spine Lumbar Medtronic Sofamor Danek 08/02/2020 [id number] / / [id number] Spacer Spinal [id number] 10d Xl Wide Peek Lordotic - [id number] - [id number] Implanted:Qty: 1 on 08/14/2018 by Rajesh Tay MD at [facility] N/A: Spine Lumbar Nuvasive Creative Spine Tech [id number] / [id number] / Spinal Graft Tech [id number] Isaias Putty Jar Graft 5cc Bone Demineralized Bone Matrix - [id number] - [id number] Implanted:Qty: 1 on 08/14/2018 by Rajesh Tay MD at [facility] N/A: Spine Lumbar Spinal Graft Tech 01/14/2021 [id number] / [id number] / Medtronic Spinal Graft [id number] Isaias Putty Filler 1cc Bone Void Demineralized Bone Matrix - [id number] - [id number] Implanted:Qty: 1 on 08/14/2018 by Rajesh Tay MD at [facility] N/A: Spine Lumbar Medtronic Spinal Graft 02/06/2021 [id number] / [id number] / Cage Spinal [id number] Modulus 10d Xl Wide Strl Ltxfre - [id number] - [id number] Implanted:Qty: 1 on 08/14/2018 by Rajesh Tay MD at [facility] N/A: Spine Lumbar Nuvasive Creative Spine Tech 02/11/2023 [id number] / [id number] / [id number] Depuy Spine [id number] Expedium 7mm 55mm 1 Innie Polyaxial Spine Screw Bone Titanium - [id number] Implanted:Qty: 4 on 08/16/2018 by Rajesh Tay MD at [facility] N/A: Spine Lumbar Depuy Spine [id number] / / Depuy Spine [id number] Expedium 7mm 50mm 1 Innie Polyaxial Spine Screw Bone Titanium - [id number] Implanted:Qty: 2 on 08/16/2018 by Rajesh Tay MD at [facility] N/A: Spine Lumbar Depuy Spine [id number] / / Depuy Spine [id number] Expedium 1 Inner Monoaxial Spine Screw Set Titanium - [id number] Implanted:Qty: 6 on 08/16/2018 by Rajesh Tay MD at [facility] N/A: Spine Lumbar Depuy Spine [id number] / / Depuy Spine [id number] Expedium 5.5mm 75mm Line Prebent Beto Spinal Titanium Nonsterile - [id number] Implanted:Qty: 2 on 08/16/2018 by Rajesh Tay MD at [facility] N/A: Spine Lumbar Depuy Spine [id number] / / Musculoskeletal Transplant [id number] Allograft Putty Freeze Dried Filler 5cc Bone Void Dbx - [id number] - [id number] Implanted:Qty: 1 on 08/16/2018 by Rajesh Tay MD at [facility] N/A: Spine Lumbar Musculoskeletal Transplant 04/24/2020 [id number] / [id number] / Procedures Procedure Name Priority Date/Time Associated Diagnosis Comments DEVICE CHECK - REMOTE Routine 09/10/2024 1:02 PM CDT Coronary artery disease involving augustine coronary artery of augustine heart without angina pectoris Pacemaker SSS (sick sinus syndrome) (HCC) High degree atrioventricular block CT LUNG CANCER SCREENING Schedule Routine, Read Routine (OP Routine) 05/06/2021 1:38 PM WEB ASSISTANT History of tobacco abuse US ABDOMINAL AORTA Schedule Routine, Read Routine (OP Routine) 05/06/2021 12:51 PM WEB ASSISTANT History of tobacco abuse EGFR STAT 03/09/2021 3:00 PM CDT COLONOSCOPY 06/26/2020 8:41 AM WEB ASSISTANT HEMOGLOBIN A1C Routine 08/10/2018 1:43 PM WEB ASSISTANT Preop testing DIABETES FOOT EXAM Routine 03/20/2017 LIPID PANEL WITH REFLEX TO DIRECT LDL Routine 03/11/2017 1:00 PM CDT Hyperlipidemia, unspecified hyperlipidemia type DIABETES EYE EXAM Routine 09/15/2016 SERUM HEPATITIS C AB Routine 02/16/2016 7:29 AM CDT from Last 3 Months or Most Recently Relevant to Health Maintenance Results * DEVICE CHECK - REMOTE (09/10/2024 1:02 PM CDT) Anatomical Region Laterality Modality Other Narrative 09/13/2024 12:02 PM CDT Images from the original result were not included. 09/11/2024 [employer] quarterly remote device check NOTE The following shows snippets from the complete quarterly report. The complete report in its entirety is attached to this Result Text in [facility] Periodic IEGM Detection Sep 11, 2024, 1:21:00 AM Last in-office check: 12/08/2023 Next in-office check not scheduled Dual Chamber PPM implanted March 2021 Battery longevity =OK/75% AT/AF burden 0% of Day Ap 47% RVp 89% Device Nurse Review and Recommendations below Reviewed By Sirisha Garcia RN BSN MD Review and Recommendations below (please forward an in-basket message to your MA if check requires attention) us Brook Alaniz MD CV CARDIAC SERVICES PROCED URES Final Result * CT Lung Cancer Screening (05/06/2021 1:38 PM WEB ASSISTANT) Anatomical Region Laterality Modality Chest N/A Computed Tomogra phy 05/06/2021 2:11 PM WEB ASSISTANT Narrative 05/06/2021 2:21 PM WEB ASSISTANT EXAM DESCRIPTION: CT LUNG CANCER SCREENING REASON [...] by Radha Diaz M.D. : Report ID: [id number] Reading Location: [place] [address] Procedure Note Radha Diaz MD - 05/06/2021 [...] Electronically signed by Radha Diaz M.D. : [place] Report ID: [id number] Reading Location: [id number] us Kwadwo Roque MD IMG CT PROCEDURES Final R esult * US Abdominal Aorta (05/06/2021 12:51 PM WEB ASSISTANT) Anatomical Region Laterality Modality Abdomen N/A Ultrasound 05/06/2021 1:06 PM WEB ASSISTANT Narrative 05/06/2021 1:09 PM WEB ASSISTANT EXAM DESCRIPTION: US ABDOMINAL AORTA REASON FOR [...] 1:09 PM - Electronically signed by Bryson Macais M.D. JA: JENNY Report ID: [id number] Reading Location: [id number] Procedure Note Bryson Macias MD - 05/06/2021 [...] Bryson Macias M.D. JA: JENNY Report ID: [id number] Reading Location: [place] [address] us Kwadwo Roque MD IMG US PROCEDURES Final R esult * eGFR (03/09/2021 3:00 PM CDT) eGFR 91 mL/min/1.7 3 m2 DOUG [facility]ODY ([place]) Comment: Interpretive Data Reference Interval Normal >/= [...] BLOOD ORDERABLES Final Re sult DOUG [facility]ODY ([place]) 1 [facility] Department [place] [address] * COLONOSCOPY (06/26/2020 8:41 AM WEB ASSISTANT) Anatomical Region Laterality Modality Other Narrative Procedure Note Connor Patel MD - 06/26/2020 8:41 AM CST [facility] Patient Name: Musa Amaya Procedure Date: 06/26/2020 8:41 AM Date of : 1950 Admit Type: Outpatient Age: 70 Gender: Male Attending MD: Connor Patel M.D. Room: [facility] ENDOSCOPY ROOM 2 Note Status: Finalized Patient [...] The scopewas passed under direct vision. The ColonoscopeCF-[id number] was introduced through the anus andadvanced to [...] 8:41 AM Procedure Code(s): --- Professional --- 43450, Colonoscopy, flexible; diagnostic, including collection of specimen(s) by brushing or washing, when performed (separateprocedure) Diagnosis Code(s): --- Professional --- K64.9, Unspecified hemorrhoids CPT copyright 2017 [employer]. All rights reserved. The codes documented in this report are preliminary and upon parts clerk reviewmay be revised to meet current compliance requirements. Recognized by the [employer] for promoting quality in endoscopy us Connor Patel MD ENDOSCOPY PROCEDURES Final Re sult * (ABNORMAL) Hemoglobin A1c (08/10/2018 1:43 PM WEB ASSISTANT) Hgb A1C 6.9(H) 4.0 - 5.6 % DOUG MOTA Estimated Average Glucose 151 mg/dL DOUG MOTA Comment: The ADA recommends reporting an estimated Average Glucose (eAG) with all Hemoglobin A1c results using the equation derived from a study of 507 normal and diabetic adults. Minority populations were underrepresented and children were not included. (Diabetes Care 31:9683-6953, 2008). The eAG is not equivalent to a fasting glucose. Blood specimen (specimen) 08/10/2018 1:43 PM WEB ASSISTANT 08/10/2018 4:10 PM WEB ASSISTANT Narrative DOUG MOTA - 08/10/2018 4:53 PM WEB ASSISTANT Rajesh Tay MD LAB BLOOD ORDERABLES F inal Result DOUG [address] [address] Department [place] [address] * DIABETES FOOT EXAM (03/20/2017) Pathologist [facility] Diabetic Foot Exam Normal Ting Santos MD HEALTH MAINTENANCE Final Result * (ABNORMAL) Lipid panel with reflex to direct LDL (03/11/2017 1:00 PM CDT) Pathologist [facility] Cholesterol 146 100 - 200 mg/dL DOUG [...] LAB BLOOD ORDERABLES Final Result DOUG MOTA [address] [address] Department [place] [address] * DIABETES EYE EXAM (09/15/2016) Diabetic Eye Exam Unknown Historical Provider MD HEALTH MAINTENANCE Final Result * Serum Hepatitis C ab (02/16/2016 7:29 AM CDT) HCV ab Negative Negative CDR HISTOR ICAL RESULTS Serum 02/16/2016 7:29 AM CDT [place] Castillo MD LAB BLOOD ORDERABLES Final Result CDR HISTORICAL RESULTS from Last 3 Months or Most Recently Relevant to Health Maintenance Insurance MEDICARE MEDICARE [facility] MEDICARE SUPPLEMENT [address] [address] CLAIMS OFFICE MEDICARE Advance Directives For more information, please contact: [phone] * Full Code (Latest Code Status on [...] 5:37 PM 05/31/2019 7:35 PM Care Teams Loom Cleaner Relationship Specialty Start Date End Date Kwadwo Roque MD PCP - General Family Practice 03/01/21
--- OUTSIDE RECORDS SUMMARY | 2024-10-22 09:36 | XMS_ITS | Referral Summary ---
Author Organization [facility] Address [address] [place] [phone] Care Team Providers Care Doughnut Machine Operator Name Role Phone Kwadwo Roque MD Primary Care Provider +1 [phone] Encounters Date Type Department Care Team Description 09/11/2024 1:00 PM CDT Ancillary Procedure [facility] Ad Setter [id number] [place] [phone] Coronary artery disease involving saginaw chippewa coronary artery of sagin[place] heart without angina pectoris; Pacemaker; SSS (sick [...] (03/09/2021): Added automatically from request for surgery [id number] Syncope and collapse 03/02/2021 Overview (03/17/2021): Cardiac monitoring showed high-grade AV block. Status post Biotronik Edora 8 DRT on 10 March 2021 (RL). Personal history of colonic polyps 05/14/2020 Overview (05/14/2020): Added automatically from request for surgery [id number] Pre-op chest exam 05/14/2020 Overview (05/14/2020): Added automatically from request for surgery [id number] Arthritis of left knee 04/09/2020 Assessment & Plan (04/09/2020 3:42 PM ENTRY LEVEL MANAGER): Patient has moderate arthritis of the knee with reactive synovitis. He has prominence of the tibial tubercle and may have chronic patella tendinitis. After reviewing the treatment options patient elected undergo a cortisone injection today. He tolerated the procedure well. History of colon polyps 05/23/2019 Overview (05/23/2019): Added automatically from request for surgery [id number] Screen for colon cancer 05/23/2019 Overview (05/23/2019): Added automatically from request for surgery [id number] s/p XLIF L3-4 and L4-5 on 05/2019, [...] (09/09/2016): Hyperlipidemia Coronary artery disease invo lving saginaw chippewa coronary artery of saginaw chippewa heart without angina pectoris 10/19/2013 Overview (09/07/2016): [...] on file Legal Sex Male 7:41 PM ENTRY LEVEL MANAGER Gender Identity Not on file Sexual [...] on file Medical Devices Implanted Type Area Overnight Houseperson Device Identifier Shelf Expiration Date Model / Serial / Lot Biotronik Inc 118118 Endocardial Pacing Lead Promri Solia Jt 45 - [id number] - [id number] Implanted:Qty: 1 on 03/10/2021 by Ben Casillas MD at [facility] Lead Biotronik Inc 01/02/2023 3996 26 / [id number] / Biotronik Inc 478352 Endocardial Pacing Lead Promri Solia T 53 - [id number] - [id number] Implanted:Qty: 1 on 03/10/2021 by Ben Casillas MD at [facility] Lead Biotronik Inc 10/02/2022 3771 80 / [id number] / Biotronik Inc [id number] Edora Promri 22u66z9.5mm Dual Chamber Rate Adaptive Unipolar Bipolar - [id number] - [id number] Implanted:Qty: 1 on 03/10/2021 by Ben Casillas MD at [facility] Pacemaker Biotronik Inc 06/04/2022 4071 45 / [id number] / Medtronic Sofamor Danek [id number] Infuse 14mm 23mm Absorbable Sponge Sterile Water Syringe Needle - [id number] Implanted:Qty: 1 on 08/14/2018 by Rajesh Tay MD at [facility] N/A: Spine Lumbar Medtronic Sofamor Danek 08/02/2020 [id number] / / [id number] Spacer Spinal [id number] 10d Xl Wide Peek Lordotic - [id number] - [id number] Implanted:Qty: 1 on 08/14/2018 by Rajesh Tay MD at [facility] N/A: Spine Lumbar Nuvasive Creative Spine Tech [id number] / [id number] / Spinal Graft Tech [id number] Pacific Putty Jar Graft 5cc Bone Demineralized Bone Matrix - [id number] - [id number] Implanted:Qty: 1 on 08/14/2018 by Rajesh Tay MD at [facility] N/A: Spine Lumbar Spinal Graft Tech 01/14/2021 [id number] / [id number] / Medtronic Spinal Graft [id number] Pacific Putty Filler 1cc Bone Void Demineralized Bone Matrix - [id number] - [id number] Implanted:Qty: 1 on 08/14/2018 by Rajesh Tay MD at [facility] N/A: Spine Lumbar Medtronic Spinal Graft 02/06/2021 [id number] / [id number] / Cage Spinal [id number] Modulus 10d Xl Wide Strl Ltxfre - [id number] - [id number] Implanted:Qty: 1 on 08/14/2018 by Rajesh Tay MD at [facility] N/A: Spine Lumbar Nuvasive Creative Spine Tech 02/11/2023 [id number] / [id number] / [id number] Depuy Spine [id number] Expedium 7mm 55mm 1 Innie Polyaxial Spine Screw Bone Titanium - [id number] Implanted:Qty: 4 on 08/16/2018 by Rajesh Tay MD at [facility] N/A: Spine Lumbar Depuy Spine [id number] / / Depuy Spine [id number] Expedium 7mm 50mm 1 Innie Polyaxial Spine Screw Bone Titanium - [id number] Implanted:Qty: 2 on 08/16/2018 by Rajesh Tay MD at [facility] N/A: Spine Lumbar Depuy Spine [id number] / / Depuy Spine [id number] Expedium 1 Inner Monoaxial Spine Screw Set Titanium - [id number] Implanted:Qty: 6 on 08/16/2018 by Rajesh Tay MD at [facility] N/A: Spine Lumbar Depuy Spine [id number] / / Depuy Spine [id number] Expedium 5.5mm 75mm Line Prebent Beto Spinal Titanium Nonsterile - [id number] Implanted:Qty: 2 on 08/16/2018 by Rajesh Tay MD at [facility] N/A: Spine Lumbar Depuy Spine [id number] / / Musculoskeletal Transplant [id number] Allograft Putty Freeze Dried Filler 5cc Bone Void Dbx - [id number] - [id number] Implanted:Qty: 1 on 08/16/2018 by Rajesh Tay MD at [facility] N/A: Spine Lumbar Musculoskeletal Transplant 04/24/2020 [id number] / [id number] / Procedures Procedure Name Priority Date/Time Associated Diagnosis Comments DEVICE CHECK - REMOTE Routine 09/10/2024 1:02 PM CDT Coronary artery disease involving sagin[place] chippe[place] coronary artery of sagin[place] chippewa heart without angina pectoris Pacemaker SSS (sick sinus syndrome) (HCC) High degree atrioventricular block CT LUNG CANCER SCREENING Schedule Routine, Read Routine (OP Routine) 05/06/2021 1:38 PM ENTRY LEVEL MANAGER History of tobacco abuse ABDOMINAL AORTA Schedule Routine, Read Routine (OP Routine) 05/06/2021 12:51 PM ENTRY LEVEL MANAGER History of tobacco abuse EGFR STAT 03/09/2021 3:00 PM CDT COLONOSCOPY 06/26/2020 8:41 AM ENTRY LEVEL MANAGER HEMOGLOBIN A1C Routine 08/10/2018 1:43 PM ENTRY LEVEL MANAGER Preop testing DIABETES FOOT EXAM Routine [...] the original result were not included. 09/11/2024 [employer] quarterly remote device check NOTE The following shows snippets from the complete quarterly report. The complete report in its entirety is attached to this Result Text in Recreation Therapy Aides Teacher Periodic IEGM Detection Sep 11, 2024, 1:21:00 AM Last in-office check: 12/08/2023 Next in-office check not scheduled Dual Chamber PPM implanted March 2021 Battery longevity =OK/75% AT/AF burden 0% of Day Ap 47% RVp 89% Device Nurse Review and Recommendations below Reviewed By CHAZ ShawN Review and Recommendations below (please forward an in-basket message to your MA if check requires attention) us Brook Alaniz MD CV CARDIAC SERVICES PROCED URES Final Result * CT Lung Cancer Screening (05/06/2021 1:38 PM ENTRY LEVEL MANAGER) Anatomical Region Laterality Modality Chest N/A Computed Tomogra phy 05/06/2021 2:11 PM ENTRY LEVEL MANAGER Narrative 05/06/2021 2:21 PM ENTRY LEVEL MANAGER EXAM DESCRIPTION: CT LUNG CANCER SCREENING [...] by Radha Diaz M.D. : Report ID: [id number] Reading Location: [id number] Procedure Note Radha Diaz MD - 05/06/2021 [...] by Radha Diaz M.D. : Report ID: [id number] Reading Location: [place] [address] us Kwadwo Roque MD IMG CT PROCEDURES Final R esult * US Abdominal Aorta (05/06/2021 12:51 PM ENTRY LEVEL MANAGER) Anatomical Region Laterality Modality Abdomen N/A Ultrasound 05/06/2021 1:06 PM ENTRY LEVEL MANAGER Narrative 05/06/2021 1:09 PM ENTRY LEVEL MANAGER EXAM DESCRIPTION: US ABDOMINAL AORTA REASON [...] 1:09 PM - Electronically signed by Bryson ALVARADO: JENNY Report ID: [id number] Reading Location: [id number] Procedure Note Bryson Macias MD - 05/06/2021 [...] 1:09 PM - Electronically signed by Bryson aMcias M.D. JA: JENNY Report ID: [id number] Reading Location: [id number] us Kwadwo Roque MD IMG US PROCEDURES [...] LAB BLOOD ORDERABLES Final Re sult DOU[facility]) 1 [facility] Department [place] [address] * COLONOSCOPY (06/26/2020 8:41 AM ENTRY LEVEL MANAGER) Anatomical Region Laterality Modality Other Narrative Procedure Note Connor Patel MD - 06/26/2020 8:41 AM CST [facility] Patient Name: Musa Amaya Procedure Date: 06/26/2020 8:41 AM Date of : 1950 Admit Type: Outpatient Age: 70 Gender: Male Attending MD: Connor Patel M.D. Room: [facility] ENDOSCOPY ROOM 2 Note Status: Finalized [...] The scopewas passed under direct vision. The ColonoscopeCF-[id number] [id number] was introduced through the anus andadvanced to [...] 8:41 AM Procedure Code(s): --- Professional --- 41360, Colonoscopy, flexible; diagnostic, including collection of specimen(s) by brushing or washing, when performed (separateprocedure) Diagnosis Code(s): --- Professional --- K64.9, Unspecified hemorrhoids CPT copyright 2017 [place] [employer]. All rights reserved. The codes documented in this report are preliminary and upon cpc coder reviewmay be revised to meet current compliance requirements. Recognized by the [place] [employer] Gastro[employer] for promoting quality in endoscopy Connor Patel MD ENDOSCOPY PROCEDURES Final Re sult * (ABNORMAL) Hemoglobin A1c (08/10/2018 1:43 PM ENTRY LEVEL MANAGER) [facility] Hgb A1C 6.9(H) 4.0 - 5.6 % DOUG Estimated Average Glucose 151 mg/dL DOUG Comment: The ADA recommends reporting an estimated Average Glucose (eAG) with all Hemoglobin A1c results using the equation derived from a study of 507 normal and diabetic adults. Minority populations were underrepresented and children were not included. (Diabetes Care 31:7192-8142, 2008). The eAG is not equivalent to a fasting glucose. Blood specimen (specimen) 08/10/2018 1:43 PM ENTRY LEVEL MANAGER 08/10/2018 4:10 PM ENTRY LEVEL MANAGER Narrative DOUG - 08/10/2018 4:53 PM ENTRY LEVEL MANAGER Rajesh Tay MD LAB BLOOD ORDERABLES F inal Result DOUG [address] [address] Department of Laboratories [place] [id number] * DIABETES FOOT EXAM (03/20/2017) [facility] Diabetic Foot Exam Normal Historical Provider HEALTH MAINTENANCE Final Result * (ABNORMAL) Lipid panel with reflex to direct LDL (03/11/2017 1:00 PM CDT) [facility] Cholesterol 146 100 - 200 mg/dL DOUG [...] Castillo MD LAB BLOOD ORDERABLES Final Result [facility] [address] [address] Department [place] [address] * DIABETES EYE EXAM (09/15/2016) Pathologist [facility] Diabetic Eye Exam Unknown Historical Provider MD HEALTH MAINTENANCE Final Result * Serum Hepatitis C ab (02/16/2016 7:29 AM CDT) Pathologist [facility] HCV ab Negative Negative CDR HISTOR ICAL RESULTS Serum 02/16/2016 7:29 AM CDT Whitney Castillo MD LAB BLOOD ORDERABLES Final Result CDR HISTORICAL RESULTS from Last 3 Months or Most Recently Relevant to Health Maintenance Insurance MEDICARE MEDICARE HUMAN MEDICARE SUPPLEMENT HUMAN CLAIMS OFFICE MEDICARE Advance Directives For more information, please contact: [phone] * Full Code (Latest Code Status on [...] 5:37 PM 05/31/2019 7:35 PM Care Teams Doughnut Machine Operator Relationship Specialty Start Date End Date Kwadwo Roque MD PCP - General Family Practice 03/01/21
[2024-10-22 09:43] LABS: Basophils Absolute Auto 0.1 K/mm3 (0.0-0.1); Basophils Percent Auto 1.1 % (0.2-1.2); Eosinophils Absolute Auto 0.3 K/mm3 (0-0.3); Eosinophils Percent Auto 4.9 % (0-4.4); Hematocrit 34.7 % (42.0-52.0); Hemoglobin 11.4 g/dL (14.0-18.0); Immature Granulocyte Absolute 0.02 K/mm3 (0.00-0.031); Immature Granulocyte Percent A 0.4 % (0-0.5); Lymphocytes Absolute Auto 1.38 K/mm3 (0.9-3.2); Lymphocytes Percent Auto 24.3 % (18.3-44.2); Mean Corpuscular HGB Conc 32.9 g/dl (32-36); Mean Corpuscular Hemoglobin 31.2 pg (26-34); Mean Corpuscular Volume 95.1 fl (80-100); Mean Platelet Volume 9.7 fl (7.4-10.4); Monocytes Absolute Auto 0.5 K/mm3 (0.1-0.6); Monocytes Percent Auto 9.3 % (2.6-8.5); Neutrophils Absolute Auto 3.4 K/mm3 (1.3-6.7); Platelet Count Result 243 k/mm3 (150-375); Red Blood Count 3.65 M/mm3 (4.6-6.20); Red Cell Distribution Width 13.1 % (11.5-14.5); White Blood Count 5.7 K/mm3 (4.5-10.0)
--- NOTE | 2024-10-22 09:51 | ED.CHESTPAIN ---
HPI - Chest Pain General Chief Complaint: Chest Pain <DAVID Hyatt Last Filed: 10/22/24 13:26> Stated Complaint: chest pain and SOB since yesterday <DAVID Hyatt Last Filed: 10/22/24 13:26> Time Seen by Provider: 10/22/24 09:38 <DAVID Hyatt Last Filed: 10/22/24 13:26> Source: patient <DAVID Hyatt Last Filed: 10/22/24 13:26> Mode of arrival: ambulatory <DAVID Hyatt Last Filed: 10/22/24 13:26> Limitations: no limitations <DAVID Hyatt Last Filed: 10/22/24 13:26> History of Present Illness HPI narrative: Patient is a 74 y/o male, with PMH of Biotronik pacemaker, DM, hypertension, dyslipidemia, former smoking, who presents to the ED with c/o CP. Patient reports he has been having midsternal chest pain since yesterday morning. States it has been fairly constant. Worse with exertion. States he has some radiation and tingling into his left fingers. Also reports feeling short of breath since yesterday, worse with exertion. Denies pain or swelling in his legs. Denies recent cough or cold symptoms, but admits to allergies/ hay fever. Denies fevers. Sees Dr. Simms, last saw him in August. ECHO 09/05/24 showed normal LVEF, grade 1 diastolic dysfunction. <DAVID Hyatt Last Filed: 10/22/24 13:26> Related Data Home Medications: Home Medications ?Medication ?Instructions ?Recorded ?Confirmed ?Last Taken ?Type aspirin 81 mg tablet,delayed 81 mg PO DAILY 04/23/19 10/22/24 10/22/24 History release (Adult Low Dose Aspirin) omega 2-kbt-hqv-fish oil 1,000 mg 2 cap PO BID 10/22/24 10/22/24 10/22/24 History (120 mg-180 mg) capsule (Fish Oil) rosuvastatin 20 mg tablet 20 mg PO DAILY 10/22/24 10/22/24 10/22/24 History <Esthela Bolton PA-C - Last Filed: 10/22/24 13:26> Allergies/Adverse Reactions: Allergies Allergy/AdvReac Type Severity Reaction Status Date / Time No Known Allergies Allergy Verified 10/22/24 09:33 <Esthela Bolton PA-C - Last Filed: 10/22/24 13:26> Review of Systems Review of Systems: All systems reviewed & are unremarkable except as noted in HPI. <DAVID Hyatt Last Filed: 10/22/24 13:26> All systems reviewed & are unremarkable except as noted in HPI and below <DAVID Hyatt Last Filed: 10/22/24 13:26> [facility] Past Medical History Medical History: Medical History Former smoker Obesity Aorta aneurysm Pacemaker Hypertension Elevated PSA Tinnitus Diabetes Dyslipidemia <DAVID Hyatt Last Filed: 10/22/24 13:26> Surgical History Surgical History: Surgical History History of back surgery <DAVID Hyatt Last Filed: 10/22/24 13:26> Family History Family History: Family History Mother Breast cancer Cancer of unknown origin Grandparent Diabetes mellitus Sibling Diabetes mellitus Mother Family history of malignant neoplasm of uterus Family history of malignant neoplasm of breast in first degree relative <DAVID Hyatt Last Filed: 10/22/24 13:26> Social History Social History: Social History Social History: Caffeine- occasionally coffee, tea Smoking packs per day: 2 Smoking cigarettes per day: 40.0 Years smoked: 58 Smoking pack-years: 116.00 Smoking status: Former smoker Tobacco type: cigarettes Second hand tobacco smoke exposure: No Alcohol intake: current Drinks per week: 1 Alcohol use details: monthly Substance use: never Substance use type: does not use Do You Feel Safe in your Home?: Yes Lack of Transportation: No Lack of Food: Never True Current Housing: I Have Housing Concerned About Future Housing: No Difficulty Paying Gas/Electric Bills: No Difficulty Paying for Meds: No Currently Unemployed: No Education: Grade School Difficulty w/ Childcare or Family Care: No Living arrangements: with family Spiritual care concerns: No <Esthela Bolton PA-C - Last Filed: 10/22/24 13:26> Exam Narrative: GENERAL: Elderly but well appearing, obese with BMI of 37.3, non-toxic, in no acute distress. HEAD: Normocephalic, atraumatic. RESPIRATORY: Airway patent, respirations nonlabored. Clear to auscultation bilaterally, no rales, rhonchi, wheezing. No significant focal lung sounds. CARDIOVASCULAR: Regular rate and rhythm without murmurs, rubs, or gallops. ABDOMINAL: Soft, nontender, nondistended. Normoactive BS. MUSCULOSKELETAL: Moves all extremities. No gross deformities. Trace nonpitting peripheral edema. No calf tenderness. SKIN: Warm, dry, normal color. NEURO: A&O X3. Speech clear. Cranial nerves II-XII grossly intact. Steady gait. No ataxic movements. PSYCHIATRIC: Appropriate mood and affect. Normal interaction. <Esthela Bolton PA-C - Last Filed: 10/22/24 13:26> Course AIRCREWMAN/PA Physician Supervision For this patient encounter, I reviewed the AIRCREWMAN or PA documentation, treatment plan, and medical decision making; and I had [id number] time with this patient. <Jacob Marmolejo MD - Last Filed: 10/22/24 20:12> Vital Signs Vital signs: Vital Signs Temperature 97.7 F 10/22/24 09:29 Pulse Rate 67 10/22/24 09:29 Respiratory Rate 16 10/22/24 09:29 Blood Pressure 174/69 H 10/22/24 09:29 Pulse Oximetry 99 10/22/24 09:29 Oxygen Delivery Room Air 10/22/24 09:29 Temperature 98.1 F 10/22/24 19:44 Pulse Rate 66 10/22/24 19:44 Respiratory Rate 20 10/22/24 19:44 Blood Pressure 151/62 H 10/22/24 19:44 Pulse Oximetry 98 10/22/24 19:44 Oxygen Delivery Room Air 10/22/24 16:00 <Esthela Bolton PA-C - Last Filed: 10/22/24 13:26> Vital Signs Temperature 97.7 F 10/22/24 09:29 Pulse Rate 67 10/22/24 09:29 Respiratory Rate 16 10/22/24 09:29 Blood Pressure 174/69 H 10/22/24 09:29 Pulse Oximetry 99 10/22/24 09:29 Oxygen Delivery Room Air 10/22/24 09:29 Temperature 98.1 F 10/22/24 19:44 Pulse Rate 66 10/22/24 19:44 Respiratory Rate 20 10/22/24 19:44 Blood Pressure 151/62 H 10/22/24 19:44 Pulse Oximetry 98 10/22/24 19:44 Oxygen Delivery Room Air 10/22/24 16:00 <Jacob Marmolejo MD - Last Filed: 10/22/24 20:12> MDM - Chest Pain MDM Narrative Medical decision making narrative: Patient presented to ED with chest pain and shortness of breath since yesterday. Patient hypertensive, oxygen stable on room air, afebrile. EKG with paced rhythm, no significant concerning ST changes, no changes from previous. Baseline troponin is undetectable. BNP within normal range. D-dimer within normal range. Chest x-ray is clear. Remainder basic laboratory studies are otherwise fairly unremarkable. No leukocytosis. Stable H&H. Mild CKD, appears consistent previous records. Viral swabs are negative. HEART score =6 Patient given ASA 324mg and NTG X 2. On reeval, he states CP has resolved after second nitro. Will discuss with cardiology. Patient sees Dr. Simms. Discussed case with Dr. Simms, cardiology, advised patient will need stress test. Can be admitted for this or discharged with close outpatient follow-up. Depends on patient's comfort level. Discussed this with patient. He would prefer to receive stress testing now as he was very worried about the chest pain. Notified Dr. Simms of this. He states he will come see patient in the ED. Will discuss with hospitalist team. Discussed case with Aarti Goldman NP Hospitalist, accepted patient for admission. <Esthela Bolton PA-C - Last Filed: 10/22/24 13:26> Medical Records Data Attestation: I reviewed the patient's medical records. <Esthela Bolton PA-C - Last Filed: 10/22/24 13:26> Lab Data Attestation: I reviewed the patient's lab results. <Esthela Bolton PA-C - Last Filed: 10/22/24 13:26> Result diagrams: 10/22/24 09:35 10/22/24 09:35 <Esthela Bolton PA-C - Last Filed: 10/22/24 13:26> Labs: Lab Results 10/22/24 10/22/24 10/22/24 Range/Units 09:35 11:04 12:10 WBC 5.7 (4.5-10.0) K/mm3 RBC 3.65 L (4.6-6.20) M/mm3 Hgb 11.4 L (14.0-18.0) g/dL Hct 34.7 L (42.0-52.0) % MCV 95.1 (80-100) fl MCH 31.2 (26-34) pg MCHC 32.9 (32-36) g/dl RDW 13.1 (11.5-14.5) % Plt Count 243 (150-375) k/mm3 MPV 9.7 (7.4-10.4) fl Immature Gran % (Auto) 0.4 (0-0.5) % Neut % (Auto) 60.0 (45.5-73.1) % Lymph % (Auto) 24.3 (18.3-44.2) % [place] % (Auto) 9.3 H (2.6-8.5) % Eos % (Auto) 4.9 H (0-4.4) % Baso % (Auto) 1.1 (0.2-1.2) % Lymph # (Auto) 1.38 (0.9-3.2) K/mm3 [place] # (Auto) 0.5 (0.1-0.6) K/mm3 Eos # (Auto) 0.3 (0-0.3) K/mm3 Baso # (Auto) 0.1 (0.0-0.1) K/mm3 Abs Immat Gran (auto) 0.02 (0.00-0.031) K/mm3 Absolute Neuts (auto) 3.4 (1.3-6.7) K/mm3 Absolute Nucleated RBC 0.000 (0.0-0.012) K/mm3 Nucleated RBC % 0.0 (0.0-0.2) % PT 13.8 (11.1-14.7) Seconds INR 1.0 APTT 30.8 (22.3-36.8) Seconds D-Dimer 0.39 (<0.48) ug/mL Sodium 142 (137-145) mmol/L Potassium 4.7 (3.4-5.0) mmol/L Chloride 108 H (98-107) mmol/L Carbon Dioxide 22 (22-30) mmol/L Anion Gap 12 (4-12) mmol/L BUN 22 H (9-20) mg/dL Creatinine 1.51 H (0.7-1.3) mg/dL Estim Creat Clear Calc 50 ml/min Estimated GFR 45 L (59 - ) Glucose 155 H (65-110) mg/dL Calcium 9.6 (8.4-10.2) mg/dL Total Bilirubin 0.3 (0.2-1.3) mg/dL AST 33 (17-59) U/L ALT 26 (6-50) U/L Alkaline Phosphatase 42 (38-126) U/L Troponin I < 0.012 < 0.012 (0.000-0.034) ng/mL NT-Pro-B Natriuret Pep 132 H (19.9-100) pg/mL Total Protein 8.0 (6.3-8.2) g/dL Albumin 4.8 (3.5-5.1) g/dL Lipase 78 (23-300) U/L Influenza A (RT-PCR) Negative (Negative) Influenza B (RT-PCR) Negative (Negative) RSV (RT-PCR) Negative (Negative) SARS-CoV-2 RNA (RT-PCR) Negative (Negative) <Esthela Bolton PA-C - Last Filed: 10/22/24 13:26> Lab Results 10/22/24 10/22/24 10/22/24 Range/Units 09:35 11:04 12:10 WBC 5.7 (4.5-10.0) K/mm3 RBC 3.65 L (4.6-6.20) M/mm3 Hgb 11.4 L (14.0-18.0) g/dL Hct 34.7 L (42.0-52.0) % MCV 95.1 (80-100) fl MCH 31.2 (26-34) pg MCHC 32.9 (32-36) g/dl RDW 13.1 (11.5-14.5) % Plt Count 243 (150-375) k/mm3 MPV 9.7 (7.4-10.4) fl Immature Gran % (Auto) 0.4 (0-0.5) % Neut % (Auto) 60.0 (45.5-73.1) % Lymph % (Auto) 24.3 (18.3-44.2) % [place] % (Auto) 9.3 H (2.6-8.5) % Eos % (Auto) 4.9 H (0-4.4) % Baso % (Auto) 1.1 (0.2-1.2) % Lymph # (Auto) 1.38 (0.9-3.2) K/mm3 [place] # (Auto) 0.5 (0.1-0.6) K/mm3 Eos # (Auto) 0.3 (0-0.3) K/mm3 Baso # (Auto) 0.1 (0.0-0.1) K/mm3 Abs Immat Gran (auto) 0.02 (0.00-0.031) K/mm3 Absolute Neuts (auto) 3.4 (1.3-6.7) K/mm3 Absolute Nucleated RBC 0.000 (0.0-0.012) K/mm3 Nucleated RBC % 0.0 (0.0-0.2) % PT 13.8 (11.1-14.7) Seconds INR 1.0 APTT 30.8 (22.3-36.8) Seconds D-Dimer 0.39 (<0.48) ug/mL Sodium 142 (137-145) mmol/L Potassium 4.7 (3.4-5.0) mmol/L Chloride 108 H (98-107) mmol/L Carbon Dioxide 22 (22-30) mmol/L Anion Gap 12 (4-12) mmol/L BUN 22 H (9-20) mg/dL Creatinine 1.51 H (0.7-1.3) mg/dL Estim Creat Clear Calc 50 ml/min Estimated GFR 45 L (59 - ) Glucose 155 H (65-110) mg/dL Calcium 9.6 (8.4-10.2) mg/dL Total Bilirubin 0.3 (0.2-1.3) mg/dL AST 33 (17-59) U/L ALT 26 (6-50) U/L Alkaline Phosphatase 42 (38-126) U/L Troponin I < 0.012 < 0.012 (0.000-0.034) ng/mL NT-Pro-B Natriuret Pep 132 H (19.9-100) pg/mL Total Protein 8.0 (6.3-8.2) g/dL Albumin 4.8 (3.5-5.1) g/dL Lipase 78 (23-300) U/L Influenza A (RT-PCR) Negative (Negative) Influenza B (RT-PCR) Negative (Negative) RSV (RT-PCR) Negative (Negative) SARS-CoV-2 RNA (RT-PCR) Negative (Negative) <Jacob Marmolejo MD - Last Filed: 10/22/24 20:12> Imaging Data Attestation: I personally reviewed and interpreted this imaging study as follows: <Esthela Bolton PA-C - Last Filed: 10/22/24 13:26> Radiologist's impression: ITS Impressions Chest X-Ray 10/22/24 10:09 IMPRESSION: No acute cardiopulmonary pathology. <Esthela Bolton PA-C - Last Filed: 10/22/24 13:26> ECG Data EKG #1: Attestation: I personally reviewed and interpreted this ECG as follows: <Esthela Bolton PA-C - Last Filed: 10/22/24 13:26> ECG completion date: 10/22/24 <Esthela Bolton PA-C - Last Filed: 10/22/24 13:26> ECG completion time: 09:33 <Esthela Bolton PA-C - Last Filed: 10/22/24 13:26> Prior ECG tracings: available for review (consistent with previous) <Esthela Bolton PA-C - Last Filed: 10/22/24 13:26> EKG Interpretation: normal rate (64), sinus rhythm and non-specific ST changes <Esthela Bolton PA-C - Last Filed: 10/22/24 13:26> Pacemaker function: normal pacer function <Esthela Bolton PA-C - Last Filed: 10/22/24 13:26> Discharge Plan Discharge Clinical Impression: Chest pain Qualifiers: Chest pain type: unspecified Qualified Code(s): R07.9 - Chest pain, unspecified <Esthela Bolton PA-C - Last Filed: 10/22/24 13:26> Patient Disposition: Still a Patient <DAVID Hyatt Last Filed: 10/22/24 13:26> Condition: Stable <Esthela Bolton PA-C - Last Filed: 10/22/24 13:26> Quality HEART score for chest pain patients History: moderately suspicious <Esthela Bolton PA-C - Last Filed: 10/22/24 13:26> ECG: non specific repolarization disturbance/LBTB/PM <Esthela Bolton PA-C - Last Filed: 10/22/24 13:26> Age: > or = to 65 years <Esthela Bolton PA-C - Last Filed: 10/22/24 13:26> Risk factors: > or = to 3 risk factors of atherosclerotic disease <Esthela Bolton PA-C - Last Filed: 10/22/24 13:26> Troponin: < or = to 1x normal limit <Esthela Bolton PA-C - Last Filed: 10/22/24 13:26> Heart score: 6 <Esthela Bolton PA-C - Last Filed: 10/22/24 13:26> 6 <Jacob Marmolejo MD - Last Filed: 10/22/24 20:12>
[2024-10-22 09:53] LABS: Alanine Aminotransferase 26 U/L (6-50); Albumin Level 4.8 g/dL (3.5-5.1); Alkaline Phosphatase 42 U/L (38-126); Anion Gap 12 mmol/L (4-12); Aspartate Amino Transferase 33 U/L (17-59); Bilirubin,Total 0.3 mg/dL (0.2-1.3); Blood Urea Nitrogen 22 mg/dL (9-20); Calcium 9.6 mg/dL (8.4-10.2); Carbon Dioxide 22 mmol/L (22-30); Chloride 108 mmol/L (98-107); Estimated CRCL calculation 50 ml/min; Estimated Glomerular Filt Rate 45; Glucose 155 mg/dL (65-110); Lipase 78 U/L (23-300); Potassium 4.7 mmol/L (3.4-5.0); Sodium 142 mmol/L (137-145)
[2024-10-22 09:55] LABS: Prothrombin Time 13.8 Seconds (11.1-14.7)
[2024-10-22 09:56] LABS: Partial Thromboplastin Time 30.8 Seconds (22.3-36.8)
[2024-10-22 10:04] LABS: Troponin I < 0.012 ng/mL (0.000-0.034)
--- OUTSIDE RECORDS SUMMARY | 2024-10-22 10:04 | XMS_ITS | Clinical Summary ---
Author Organization [facility] Address [address] [place] [id number] Care Team Providers Care Transmission Line Engineer Name Role Phone Kwadwo Roque MD Primary Care Provider [phone] Allergies No known active allergies Medications lancets [...] (03/09/2021): Added automatically from request for surgery [id number] Syncope and collapse 03/02/2021 Overview (03/17/2021): Cardiac monitoring showed high-grade AV block. Status post Biotronik Edora 8 DRT on 10 March 2021 (RL). Personal history of colonic polyps 05/14/2020 Overview (05/14/2020): Added automatically from request for surgery [id number] Pre-op chest exam 05/14/2020 Overview (05/14/2020): Added automatically from request for surgery [id number] Arthritis of left knee 04/09/2020 Assessment & Plan (04/09/2020 3:42 PM DOOR MANAGER): Patient has moderate arthritis of the knee with reactive synovitis. He has prominence of the tibial tubercle and may have chronic patella tendinitis. After reviewing the treatment options patient elected undergo a cortisone injection today. He tolerated the procedure well. History of colon polyps 05/23/2019 Overview (05/23/2019): Added automatically from request for surgery [id number] Screen for colon cancer 05/23/2019 Overview (05/23/2019): Added automatically from request for surgery [id number] s/p XLIF L3-4 and L4-5 on 05/2019, [...] (09/09/2016): Hyperlipidemia Coronary artery disease invo lving chitina coronary artery of chitina heart without angina pectoris 10/19/2013 Overview (09/07/2016): [...] Description 09/11/2024 1:00 PM CDT Ancillary Procedure [place] Natural [employer] Engineer [address] [place] [id number] Coronary artery disease involving chitina coronary artery of chitina heart without angina pectoris; Pacemaker; SSS (sick [...] pain, turned tractor Hx Other Medical silent SC Hyperlipidemia Hyperlipidemia Hx Other Medical left eye [...] on file Legal Sex Male 7:41 PM DOOR MANAGER Gender Identity Not on file Sexual [...] 05/06/2021, 11/28/2015 Medical Devices Implanted Type Area Diesel Service Journeyman Device Identifier Shelf Expiration Date Model / Serial / Lot Biotronik Inc [id number] Endocardial Pacing Lead Promri Solia Jt 45 - [id number] - [id number] Implanted:Qty: 1 on 03/10/2021 by Ben Casillas MD at [facility] Lead Biotronik Inc 01/02/2023 [id number] 26 / [id number] / Biotronik Inc [id number] Endocardial Pacing Lead Promri Solia T 53 - [id number] - [id number] Implanted:Qty: 1 on 03/10/2021 by Ben Casillas MD at [facility] Lead Biotronik Inc 10/02/2022 3771 80 / [id number] / Biotronik Inc [id number] Edora Promri [id number] Dual Chamber Rate Adaptive Unipolar Bipolar - [id number] - [id number] Implanted:Qty: 1 on 03/10/2021 by Ben Casillas MD at [facility] Pacemaker Biotronik Inc 06/04/2022 4071 45 / [id number] / Medtronic Sofamor Danek [id number] Infuse 14mm 23mm Absorbable Sponge Sterile Water Syringe Needle - [id number] Implanted:Qty: 1 on 08/14/2018 by Rajesh Tay MD at [facility] N/A: Spine Lumbar Medtronic Sofamor Danek 08/02/2020 [id number] / / [id number] Spacer Spinal [id number] 10d Xl Wide Peek Lordotic - [id number] - [id number] Implanted:Qty: 1 on 08/14/2018 by Rajesh Tay MD at [facility] N/A: Spine Lumbar Nuvasive Creative Spine Tech [id number] / [id number] / Spinal Graft Tech [id number] Isaias Putty Jar Graft 5cc Bone Demineralized Bone Matrix - [id number] - [id number] Implanted:Qty: 1 on 08/14/2018 by Rajesh Tay MD at [facility] N/A: Spine Lumbar Spinal Graft Tech 01/14/2021 [id number] / [id number] / Medtronic Spinal Graft [id number] Isaias Putty Filler 1cc Bone Void Demineralized Bone Matrix - [id number] - [id number] Implanted:Qty: 1 on 08/14/2018 by Rajesh Tay MD at [facility] N/A: Spine Lumbar Medtronic Spinal Graft 02/06/2021 [id number] / [id number] / Cage Spinal [id number] Modulus 10d Xl Wide Strl Ltxfre - [id number] - [id number] Implanted:Qty: 1 on 08/14/2018 by Rajesh Tay MD at [facility] N/A: Spine Lumbar Nuvasive Creative Spine Tech 02/11/2023 [id number] / [id number] / [id number] Depuy Spine [id number] Expedium 7mm 55mm 1 Innie Polyaxial Spine Screw Bone Titanium - [id number] Implanted:Qty: 4 on 08/16/2018 by Rajesh Tay MD at [facility] N/A: Spine Lumbar Depuy Spine [id number] / / Depuy Spine [id number] Expedium 7mm 50mm 1 Innie Polyaxial Spine Screw Bone Titanium - [id number] Implanted:Qty: 2 on 08/16/2018 by Rajesh Tay MD at [facility] N/A: Spine Lumbar Depuy Spine [id number] / / Depuy Spine [id number] Expedium 1 Inner Monoaxial Spine Screw Set Titanium - [id number] Implanted:Qty: 6 on 08/16/2018 by Rajesh Tay MD at [facility] N/A: Spine Lumbar Depuy Spine [id number] / / Depuy Spine [id number] Expedium 5.5mm 75mm Line Prebent Beto Spinal Titanium Nonsterile - [id number] Implanted:Qty: 2 on 08/16/2018 by Rajesh Tay MD at [facility] N/A: Spine Lumbar Depuy Spine [id number] / / Musculoskeletal Transplant [id number] Allograft Putty Freeze Dried Filler 5cc Bone Void Dbx - [id number] - [id number] Implanted:Qty: 1 on 08/16/2018 by Rajesh Tay MD at [facility] N/A: Spine Lumbar Musculoskeletal Transplant 04/24/2020 [id number] / [id number] / Procedures Procedure Name Priority Date/Time Associated Diagnosis Comments DEVICE CHECK - REMOTE Routine 09/10/2024 1:02 PM CDT Coronary artery disease involving chitina coronary artery of chitina heart without angina pectoris Pacemaker SSS (sick sinus syndrome) (HCC) High degree atrioventricular block CT LUNG CANCER SCREENING Schedule Routine, Read Routine (OP Routine) 05/06/2021 1:38 PM DOOR MANAGER History of tobacco abuse US ABDOMINAL AORTA Schedule Routine, Read Routine (OP Routine) 05/06/2021 12:51 PM DOOR MANAGER History of tobacco abuse EGFR STAT 03/09/2021 3:00 PM CDT COLONOSCOPY 06/26/2020 8:41 AM DOOR MANAGER HEMOGLOBIN A1C Routine 08/10/2018 1:43 PM DOOR MANAGER Preop testing DIABETES FOOT EXAM Routine [...] the original result were not included. 09/11/2024 [employer] quarterly remote device check NOTE The following shows snippets from the complete quarterly report. The complete report in its entirety is attached to this Result Text in Shift Commander Periodic IEGM Detection Sep 11, 2024, 1:21:00 [...] CT Lung Cancer Screening (05/06/2021 1:38 PM DOOR MANAGER) Anatomical Region Laterality Modality Chest N/A Computed Tomogra phy 05/06/2021 2:11 PM DOOR MANAGER Narrative 05/06/2021 2:21 PM DOOR MANAGER EXAM DESCRIPTION: CT LUNG CANCER SCREENING [...] by Radha Diaz M.D. : Report ID: [id number] Reading Location: [place] [address] Procedure Note Radha Diaz MD - 05/06/2021 [...] Radha Diaz M.D. : [place] Report ID: [id number] Reading Location: [id number] us Kwadwo Roque MD IMG CT PROCEDURES Final R esult * US Abdominal Aorta (05/06/2021 12:51 PM DOOR MANAGER) Anatomical Region Laterality Modality Abdomen N/A Ultrasound 05/06/2021 1:06 PM DOOR MANAGER Narrative 05/06/2021 1:09 PM DOOR MANAGER EXAM DESCRIPTION: US ABDOMINAL AORTA REASON [...] Bryson Macias M.D. JA: JENNY Report ID: [id number] Reading Location: [id number] Procedure Note Bryson Macias MD - 05/06/2021 [...] Bryson Macias M.D. JA: JENNY Report ID: [id number] Reading Location: [place] [address] us Kwadwo Roque MD IMG US PROCEDURES Final R esult * eGFR (03/09/2021 3:00 PM CDT) eGFR 91 mL/min/1.7 3 m2 DOUG MOODY ([place]) Comment: Interpretive Data Reference Interval Normal >/= [...] BLOOD ORDERABLES Final Re sult DOUG MOODY ([place]) 1 [facility] Department [place] [address] * COLONOSCOPY (06/26/2020 8:41 AM DOOR MANAGER) Anatomical Region Laterality Modality Other Narrative Procedure Note Connor Ptael MD - 06/26/2020 8:41 AM CST [facility] Patient Name: Musa Amaya Procedure Date: 06/26/2020 8:41 AM Date of : 1950 Admit Type: Outpatient Age: 70 Gender: Male Attending MD: Connor Patel M.D. Room: [facility] ENDOSCOPY ROOM 2 Note Status: [...] The scopewas passed under direct vision. The [id number] was introduced through the anus andadvanced to [...] 8:41 AM Procedure Code(s): --- Professional --- 07866, Colonoscopy, flexible; diagnostic, including collection of specimen(s) by brushing or washing, when performed (separateprocedure) Diagnosis Code(s): --- Professional --- K64.9, Unspecified hemorrhoids CPT copyright 2017 [employer]. All rights reserved. The codes documented in this report are preliminary and upon flight software test engineer reviewmay be revised to meet current compliance requirements. Recognized by the [employer] for promoting quality in endoscopy us Connor Patel MD ENDOSCOPY PROCEDURES Final Re sult * (ABNORMAL) Hemoglobin A1c (08/10/2018 1:43 PM DOOR MANAGER) Hgb A1C 6.9(H) 4.0 - 5.6 % DOUG MOTA Estimated Average Glucose 151 mg/dL DOUG MOTA Comment: The ADA recommends reporting an estimated Average Glucose (eAG) with all Hemoglobin A1c results using the equation derived from a study of 507 normal and diabetic adults. Minority populations were underrepresented and children were not included. (Diabetes Care 31:8588-2877, 2008). The eAG is not equivalent to a fasting glucose. Blood specimen (specimen) 08/10/2018 1:43 PM DOOR MANAGER 08/10/2018 4:10 PM DOOR MANAGER Narrative DOUG MOTA - 08/10/2018 4:53 PM DOOR MANAGER Rajesh Tay MD LAB BLOOD ORDERABLES F inal Result DOUG [address] [address] Department [place] [address] * DIABETES FOOT EXAM (03/20/2017) Pathologist [facility] Diabetic Foot Exam Normal Ting Santos MD HEALTH MAINTENANCE Final Result * (ABNORMAL) Lipid panel with reflex to direct LDL (03/11/2017 1:00 PM CDT) Pathologist [facility] Cholesterol 146 100 - 200 mg/dL DOUG [...] LAB BLOOD ORDERABLES Final Result DOUG MOTA [address] [address] Department [place] [address] * DIABETES EYE EXAM (09/15/2016) Diabetic Eye Exam Unknown Historical Provider MD HEALTH MAINTENANCE Final Result * Serum Hepatitis C ab (02/16/2016 7:29 AM CDT) HCV ab Negative Negative CDR HISTOR ICAL RESULTS Serum 02/16/2016 7:29 AM CDT Whitney Castillo MD LAB BLOOD ORDERABLES Final Result CDR HISTORICAL RESULTS from Last 3 Months or Most Recently Relevant to Health Maintenance Insurance MEDICARE MEDICARE [facility] MEDICARE SUPPLEMENT [address] [place] [address] CLAIMS OFFICE MEDICARE Advance Directives For more information, please contact: [phone] * Full Code (Latest Code Status on [...] 5:37 PM 05/31/2019 7:35 PM Care Teams Transmission Line Engineer Relationship Specialty Start Date End Date Kwadwo Roque MD PCP - General Family Practice 03/01/21
--- OUTSIDE RECORDS SUMMARY | 2024-10-22 10:04 | XMS_ITS | Referral Summary ---
Author Organization [facility] Address [address] [place] [id number] Care Team Providers Care Wire Dropper Name Role Phone Kwadwo Roque MD Primary Care Provider [phone] Encounters Date Type Department Care Team Description 09/11/2024 1:00 PM CDT Ancillary Procedure [facility] [employer] [id number] [place] [phone] Coronary artery disease involving tyonek coronary artery of tyonek heart without angina pectoris; Pacemaker; SSS (sick [...] (03/09/2021): Added automatically from request for surgery [id number] Syncope and collapse 03/02/2021 Overview (03/17/2021): Cardiac monitoring showed high-grade AV block. Status post Biotronik Edora 8 DRT on 10 March 2021 (RL). Personal history of colonic polyps 05/14/2020 Overview (05/14/2020): Added automatically from request for surgery [id number] Pre-op chest exam 05/14/2020 Overview (05/14/2020): Added automatically from request for surgery [id number] Arthritis of left knee 04/09/2020 Assessment & Plan (04/09/2020 3:42 PM AUTOMOBILE DETAILER): Patient has moderate arthritis of the knee with reactive synovitis. He has prominence of the tibial tubercle and may have chronic patella tendinitis. After reviewing the treatment options patient elected undergo a cortisone injection today. He tolerated the procedure well. History of colon polyps 05/23/2019 Overview (05/23/2019): Added automatically from request for surgery [id number] Screen for colon cancer 05/23/2019 Overview (05/23/2019): Added automatically from request for surgery [id number] s/p XLIF L3-4 and L4-5 on 05/2019, [...] (09/09/2016): Hyperlipidemia Coronary artery disease invo lving tyonek coronary artery of tyonek heart without angina pectoris 10/19/2013 Overview (09/07/2016): [...] on file Legal Sex Male 7:41 PM AUTOMOBILE DETAILER Gender Identity Not on file Sexual Orientation [...] on file Medical Devices Implanted Type Area Ballast Cleaning Operator Device Identifier Shelf Expiration Date Model / Serial / Lot Biotronik Inc [id number] Endocardial Pacing Lead Promri Solia Jt 45 - [id number] - [id number] Implanted:Qty: 1 on 03/10/2021 by Ben Casillas MD at [facility] Lead Biotronik Inc 01/02/2023 [id number] / [id number] / Biotronik Inc [id number] Endocardial Pacing Lead Promri Solia T 53 - [id number] - [id number] Implanted:Qty: 1 on 03/10/2021 by Ben Casillas MD at [facility] Lead Biotronik Inc 10/02/2022 3771 80 / [id number] / Biotronik Inc [id number] Edora Promri 63r02o0.5mm Dual Chamber Rate Adaptive Unipolar Bipolar - [id number] - [id number] Implanted:Qty: 1 on 03/10/2021 by Ben Casillas MD at [facility] Pacemaker Biotronik Inc 06/04/2022 4071 45 / [id number] / Medtronic Sofamor Danek [id number] Infuse 14mm 23mm Absorbable Sponge Sterile Water Syringe Needle - [id number] Implanted:Qty: 1 on 08/14/2018 by Rajesh Tay MD at [facility] N/A: Spine Lumbar Medtronic Sofamor Danek 08/02/2020 [id number] / / [id number] Spacer Spinal [id number] 10d Xl Wide Peek Lordotic - [id number] - [id number] Implanted:Qty: 1 on 08/14/2018 by Rajesh Tay MD at [facility] N/A: Spine Lumbar Nuvasive Creative Spine Tech [id number] / [id number] / Spinal Graft Tech [id number] Wilkinson Putty Jar Graft 5cc Bone Demineralized Bone Matrix - [id number] - [id number] Implanted:Qty: 1 on 08/14/2018 by Rajesh Tay MD at [facility] N/A: Spine Lumbar Spinal Graft Tech 01/14/2021 [id number] / [id number] / Medtronic Spinal Graft [id number] Wilkinson Putty Filler 1cc Bone Void Demineralized Bone Matrix - [id number] - [id number] Implanted:Qty: 1 on 08/14/2018 by Rajesh Tay MD at [facility] N/A: Spine Lumbar Medtronic Spinal Graft 02/06/2021 [id number] / [id number] / Cage Spinal [id number] Modulus 10d Xl Wide Strl Ltxfre - [id number] - [id number] Implanted:Qty: 1 on 08/14/2018 by Rajesh Tay MD at [facility] N/A: Spine Lumbar Nuvasive Creative Spine Tech 02/11/2023 [id number] / [id number] / [id number] Depuy Spine [id number] Expedium 7mm 55mm 1 Innie Polyaxial Spine Screw Bone Titanium - [id number] Implanted:Qty: 4 on 08/16/2018 by Rajesh Tay MD at [facility] N/A: Spine Lumbar Depuy Spine [id number] / / Depuy Spine [id number] Expedium 7mm 50mm 1 Innie Polyaxial Spine Screw Bone Titanium - [id number] Implanted:Qty: 2 on 08/16/2018 by Rajesh Tay MD at [facility] N/A: Spine Lumbar Depuy Spine [id number] / / Depuy Spine [id number] Expedium 1 Inner Monoaxial Spine Screw Set Titanium - [id number] Implanted:Qty: 6 on 08/16/2018 by Rajesh Tay MD at [facility] N/A: Spine Lumbar Depuy Spine [id number] / / Depuy Spine [id number] Expedium 5.5mm 75mm Line Prebent Beto Spinal Titanium Nonsterile - [id number] Implanted:Qty: 2 on 08/16/2018 by Rajesh Tay MD at [facility] N/A: Spine Lumbar Depuy Spine [id number] / / Musculoskeletal Transplant [id number] Allograft Putty Freeze Dried Filler 5cc Bone Void Dbx - [id number] - [id number] Implanted:Qty: 1 on 08/16/2018 by Rajesh Tay MD at [facility] N/A: Spine Lumbar Musculoskeletal Transplant 04/24/2020 [id number] / [id number] / Procedures Procedure Name Priority Date/Time Associated Diagnosis Comments DEVICE CHECK - REMOTE Routine 09/10/2024 1:02 PM CDT Coronary artery disease involving tyonek coronary artery of tyonek heart without angina pectoris Pacemaker SSS (sick sinus syndrome) (HCC) High degree atrioventricular block CT LUNG CANCER SCREENING Schedule Routine, Read Routine (OP Routine) 05/06/2021 1:38 PM AUTOMOBILE DETAILER History of tobacco abuse ABDOMINAL AORTA Schedule Routine, Read Routine (OP Routine) 05/06/2021 12:51 PM AUTOMOBILE DETAILER History of tobacco abuse EGFR STAT 03/09/2021 3:00 PM CDT COLONOSCOPY 06/26/2020 8:41 AM AUTOMOBILE DETAILER HEMOGLOBIN A1C Routine 08/10/2018 1:43 PM AUTOMOBILE DETAILER Preop testing DIABETES FOOT EXAM Routine 03/20/2017 [...] the original result were not included. 09/11/2024 [employer] quarterly remote device check NOTE The following shows snippets from the complete quarterly report. The complete report in its entirety is attached to this Result Text in Flake Cutter Operator Periodic IEGM Detection Sep 11, 2024, 1:21:00 [...] CT Lung Cancer Screening (05/06/2021 1:38 PM AUTOMOBILE DETAILER) Anatomical Region Laterality Modality Chest N/A Computed Tomogra phy 05/06/2021 2:11 PM AUTOMOBILE DETAILER Narrative 05/06/2021 2:21 PM AUTOMOBILE DETAILER EXAM DESCRIPTION: CT LUNG CANCER SCREENING REASON [...] by Radha Diaz M.D. : Report ID: [id number] Reading Location: [id number] Procedure Note Radha Diaz MD - 05/06/2021 [...] by Radha Diaz M.D. : Report ID: [id number] Reading Location: [place] [address] [place] Kwadwo Roque MD IMG CT PROCEDURES Final R esult * US Abdominal Aorta (05/06/2021 12:51 PM AUTOMOBILE DETAILER) Anatomical Region Laterality Modality Abdomen N/A Ultrasound 05/06/2021 1:06 PM AUTOMOBILE DETAILER Narrative 05/06/2021 1:09 PM AUTOMOBILE DETAILER EXAM DESCRIPTION: US ABDOMINAL AORTA REASON FOR [...] 05/06/2021 1:09 PM - Electronically signed by Bryosn ALVARADO: JENNY Report ID: [id number] Reading Location: [id number] Procedure Note Bryson Macias MD - 05/06/2021 [...] Bryson Macias M.D. JA: JENNY Report ID: [id number] Reading Location: [id number] [place] Kwadwo Roque MD IMG US PROCEDURES [...] LAB BLOOD ORDERABLES Final Re sult DOUG [facility] WHITTIER) 1 [facility] Department [place] [address] * COLONOSCOPY (06/26/2020 8:41 AM AUTOMOBILE DETAILER) Anatomical Region Laterality Modality Other Narrative Procedure Note Connor Patel MD - 06/26/2020 8:41 AM CST Center Patient Name: Musa Amaya Procedure Date: 06/26/2020 8:41 AM Date of : 1950 Admit Type: Outpatient Age: 70 Gender: Male Attending MD: Connor Patel M.D. Room: [facility] ENDOSCOPY ROOM 2 Note Status: [...] The scopewas passed under direct vision. The [id number] was introduced through the anus andadvanced to [...] 8:41 AM Procedure Code(s): --- Professional --- 24040, Colonoscopy, flexible; diagnostic, including collection of specimen(s) by brushing or washing, when performed (separateprocedure) Diagnosis Code(s): --- Professional --- K64.9, Unspecified hemorrhoids CPT copyright 2017 [place] [employer]. All rights reserved. The codes documented in this report are preliminary and upon teacher drama reviewmay be revised to meet current compliance requirements. Recognized by the [place] [employer] for promoting quality in endoscopy Connor Patel MD ENDOSCOPY PROCEDURES Final Re sult * (ABNORMAL) Hemoglobin A1c (08/10/2018 1:43 PM AUTOMOBILE DETAILER) [facility] Hgb A1C 6.9(H) 4.0 - 5.6 % DOUG Estimated Average Glucose 151 mg/dL DOUG Comment: The ADA recommends reporting an estimated Average Glucose (eAG) with all Hemoglobin A1c results using the equation derived from a study of 507 normal and diabetic adults. Minority populations were underrepresented and children were not included. (Diabetes Care 31:1257-9033, 2008). The eAG is not equivalent to a fasting glucose. Blood specimen (specimen) 08/10/2018 1:43 PM AUTOMOBILE DETAILER 08/10/2018 4:10 PM AUTOMOBILE DETAILER Narrative DOUG - 08/10/2018 4:53 PM AUTOMOBILE DETAILER Rajesh Tay MD LAB BLOOD ORDERABLES F inal Result DOUG [id number] Department of Laboratories [place] [id number] * DIABETES FOOT EXAM (03/20/2017) [facility] Diabetic Foot Exam Normal Historical Provider HEALTH MAINTENANCE Final Result * (ABNORMAL) Lipid panel with reflex to direct LDL (03/11/2017 1:00 PM CDT) [facility] Cholesterol 146 100 - 200 [...] Castillo MD LAB BLOOD ORDERABLES Final Result [facility] [address] [address] Department [place] [address] * DIABETES EYE EXAM (09/15/2016) Pathologist [facility] Diabetic Eye Exam Unknown Historical Provider MD HEALTH MAINTENANCE Final Result * Serum Hepatitis C ab (02/16/2016 7:29 AM CDT) Pathologist [facility] HCV ab Negative Negative CDR HISTOR ICAL RESULTS Serum 02/16/2016 7:29 AM CDT Whitney Castillo MD LAB BLOOD ORDERABLES Final Result CDR HISTORICAL RESULTS from Last 3 Months or Most Recently Relevant to Health Maintenance Insurance MEDICARE MEDICARE HUMAN MEDICARE SUPPLEMENT HUMAN CLAIMS OFFICE MEDICARE Advance Directives For more information, please contact: [phone] * Full Code (Latest Code Status on [...] 5:37 PM 05/31/2019 7:35 PM Care Teams Wire Dropper Relationship Specialty Start Date End Date Kwadwo Roque MD PCP - General Family Practice 03/01/21
[2024-10-22 10:11] LABS: D Dimer 0.39 ug/mL (<0.48)
[2024-10-22 10:17] LABS: NT Pro B Type Natriuretic Pept 132 pg/mL (19.9-100)
[2024-10-22] MEDS: ASPIRIN 81 MG CHEWABLE TABLET 324 MG PO (10:40)
[2024-10-22] MEDS: NITROGLYCERIN SL 0.4 MG TABLET SUBLINGUAL (11:19)
--- NOTE | 2024-10-22 11:21 | PC.NURSE ---
pt reported that chest heaviness was resolved after two doses of PO Nitro pt ambulated through ED and o2 saturation stayed at 97%
--- NOTE | 2024-10-22 12:04 | ECG_ITS ---
Test Date: 2024-10-22 12:16:13 Measurements Intervals [place] Rate: 71 P: 137 MT: 297 QRS: -72 QRSD: 152 T: 104 QT: 400 QTc: 437 Interpretive Statements ELECTRONIC ATRIAL PACEMAKER ELECTRONIC VENTRICULAR PACEMAKER Compared to ECG 10/22/2024 09:33:25 ATRIAL PACING NOW PRESENT Electronically Signed On 10-22-2024 13:44:38 CDT by Demetrius Aguila M.D.
[2024-10-22 12:07] LABS: Influenza A QL RT-PCR Negative (Negative); Influenza B QL RT-PCR Negative (Negative); RSV RNA, RT-PCR Negative (Negative); SARS-CoV-2 RNA PCR Negative (Negative)
--- NOTE | 2024-10-22 12:33 | P.CONCA_ITS ---
Assessment and Plan Assessment and plan (1) Chest pain: Qualifiers: Chest pain type: unspecified Qualified Code(s): R07.9 - Chest pain, unspecified Code(s): R07.9 - Chest pain, unspecified Status: Acute Assessment and Plan: First troponin negative. If serial troponin negative, obtain lexiscan myoview in AM. (2) Dyslipidemia: Code(s): E78.5 - Hyperlipidemia, unspecified Status: Acute Assessment and Plan: On Pravastatin, Niacin, Vascepa. (3) Hypertension: Code(s): I10 - Essential (primary) hypertension Status: Acute Assessment and Plan: Stable. (4) Pacemaker: Code(s): Z95.0 - Presence of cardiac pacemaker Status: Acute Assessment and Plan: Biotronik recently checked and normal function. History of Present Illness History of Present Illness Consult date/time: 10/22/24 12:33 Reason For Visit: chest pain and SOB since yesterday Narrative: 74 yr old man who is my regular cardiology patient and a patient of Alisia Jc presents to ER with chest pain. He has a history of Biotronik pacemaker, DM, hypertension, dyslipidemia, former smoking quit in September 2023, MIKAYLA on PCP (sees PCP). is at bedside. Reports he was driving yesterday when he started having chest pressure intermittently and decided to come in to ER. Currently no chest pain. He is limited at walking just around his house now due to LEDESMA. Denies chest pain, sob, orthopnea, PND, edema, dizziness, palpitations. Cardiovascular Procedures Trade Economist:: 03/09/21 Dr. Coles at [facility]: Mid LAD 30%. Echo/MUGA:: 03/10/21 Dr. Casillas implanted Biotronik pacemaker for complete heart block. 03/09/21 [facility] Echo: EF 60-65%, trace MR/TR. Electrophysiology:: 02/12/24 EKG: Atrial-ventricular pacemaker at 63 bpm. Stress Tests:: 10/25/22 [place] HELADIO: Right 1.17, TBI 0.69, left HELADIO 1.13, TBI 0.68. 12/13/17 Sleep study : Severe MIKAYLA, desat 81%. Review of Systems 2 Review of Systems: All systems reviewed & are unremarkable except as noted in HPI and below Constitutional: Constitutional: Reports as per HPI, Denies chills and Denies fever(s) Cardiovascular: Cardiovascular: Reports as per HPI, Reports chest pain and Denies irregular heart rhythm Respiratory: Respiratory: Reports as per HPI and Reports dyspnea on exertion Gastrointestinal: Gastrointestinal: Reports as per HPI and Denies abdominal pain Genitourinary: Genitourinary: Reports as per HPI and Denies dysuria Musculoskeletal: Musculoskeletal: Reports as per HPI Neurologic: Reports as per HPI, Denies dizziness and Denies syncope [facility] Past Medical History Medical History Obesity Aorta aneurysm Pacemaker Hypertension Elevated PSA Tinnitus Diabetes Dyslipidemia Surgical History Surgical History History of back surgery Family History Family History Mother Breast cancer Cancer of unknown origin Grandparent Diabetes mellitus Sibling Diabetes mellitus Mother Family history of malignant neoplasm of uterus Family history of malignant neoplasm of breast in first degree relative Social History Social History Social History: Caffeine- occasionally coffee, tea Smoking packs per day: 0.5 Smoking cigarettes per day: 10.0 Years smoked: 50 Smoking pack-years: 25.00 Smoking status: Former smoker Tobacco type: cigarettes Second hand tobacco smoke exposure: No Alcohol intake: current Drinks per week: 1 Alcohol use details: monthly Substance use: never Substance use type: does not use Do You Feel Safe in your Home?: Yes Lack of Transportation: No Lack of Food: Never True Current Housing: I Have Housing Concerned About Future Housing: No Difficulty Paying Gas/Electric Bills: No Difficulty Paying for Meds: No Currently Unemployed: No Education: Don't Know Difficulty w/ Childcare or Family Care: No Living arrangements: with family Spiritual care concerns: No Meds Home Medications and Allergies Home Medications ?Medication ?Instructions ?Recorded ?Confirmed ?Type aspirin 81 mg tablet,delayed 81 mg PO DAILY 04/23/19 08/14/24 History release (Adult Low Dose Aspirin) blood sugar diagnostic (Contour #100 ea 10/29/20 08/14/24 Rx Next Test Strips) icosapent ethyl 1 gram capsule 2 g (2 x 1 gram) PO BID #120 caps 08/12/21 08/14/24 Rx (Vascepa) loratadine 10 mg tablet 10 mg PO DAILY #90 tabs 10/10/23 08/14/24 Rx cyclobenzaprine 10 mg tablet 10 mg PO TID PRN muscle spasm #20 03/11/24 08/14/24 Rx tabs naproxen 375 mg tablet 375 mg PO BID #14 tabs 03/11/24 08/14/24 Rx pravastatin 40 mg tablet 40 mg PO DAILY 05/07/24 08/14/24 History hydrochlorothiazide 25 mg tablet See Rx Instructions .Route 06/19/24 08/14/24 Rx .COMPLEX #90 tabs lisinopril 40 mg tablet See Rx Instructions .Route 06/19/24 08/14/24 Rx .COMPLEX #90 tabs fenofibrate 160 mg tablet 160 mg PO DAILY #30 tabs 06/21/24 08/14/24 Rx hydralazine 25 mg tablet 25 mg PO BID #60 tabs 08/14/24 08/14/24 Rx niacin 500 mg tablet 500 mg PO DAILY 08/14/24 08/14/24 History carvedilol 25 mg tablet See Rx Instructions .Route 09/16/24 Rx .COMPLEX #180 tabs amlodipine 10 mg tablet See Rx Instructions .Route 09/17/24 Rx .COMPLEX #90 tabs meloxicam 15 mg tablet See Rx Instructions .Route 09/26/24 Rx .COMPLEX #90 tabs metformin 500 mg tablet,extended See Rx Instructions .Route 10/17/24 Rx release 24 hr .COMPLEX #270 tabs Allergies Allergy/AdvReac Type Severity Reaction Status Date / Time No Known Allergies Allergy Verified 10/22/24 09:33 Vital Signs Vital Signs - 24 hr 10/22/24 09:29 10/22/24 09:33 10/22/24 11:00 Temperature 97.7 F Pulse Rate 67 65 76 Respiratory Rate 16 17 Blood Pressure 174/69 H 151/66 H Pulse Oximetry 99 97 Oxygen Delivery Room Air 10/22/24 11:25 10/22/24 11:33 10/22/24 12:01 Temperature Pulse Rate 74 72 Respiratory Rate 19 19 Blood Pressure Pulse Oximetry 98 99 99 Oxygen Delivery Room Air Exam 2 Const: General: cooperative, healthy appearing and comfortable Resp: Auscultation: clear to auscultation bilaterally, no crackles, no rales, no rhonchi and no wheezes Cardio: Rate: regular rate Rhythm: regular rhythm Heart sounds: no murmurs Peripheral pulses: dorsalis pedis present GI: GI Palp: No abdominal tenderness and Yes Soft to palpation Neuro: General: oriented to person, oriented to place and oriented to time Extrem: Right lower extremity: no edema Left lower extremity: no edema Results Labs and Meds 10/22/24 09:35 10/22/24 09:35 Lab results: Cardiac Enzymes 10/22/24 Range/Units 09:35 AST 33 (17-59) U/L Troponin I < 0.012 (0.000-0.034) ng/mL Coagulation 10/22/24 Range/Units 09:35 PT 13.8 (11.1-14.7) Seconds APTT 30.8 (22.3-36.8) Seconds CBC 10/22/24 Range/Units 09:35 WBC 5.7 (4.5-10.0) K/mm3 RBC 3.65 L (4.6-6.20) M/mm3 Hgb 11.4 L (14.0-18.0) g/dL Hct 34.7 L (42.0-52.0) % Plt Count 243 (150-375) k/mm3 Lymph # (Auto) 1.38 (0.9-3.2) K/mm3 Pratt # (Auto) 0.5 (0.1-0.6) K/mm3 Eos # (Auto) 0.3 (0-0.3) K/mm3 Baso # (Auto) 0.1 (0.0-0.1) K/mm3 Comprehensive Metabolic Panel 10/22/24 Range/Units 09:35 Sodium 142 (137-145) mmol/L Potassium 4.7 (3.4-5.0) mmol/L Chloride 108 H (98-107) mmol/L Carbon Dioxide 22 (22-30) mmol/L BUN 22 H (9-20) mg/dL Creatinine 1.51 H (0.7-1.3) mg/dL Glucose 155 H (65-110) mg/dL Calcium 9.6 (8.4-10.2) mg/dL AST 33 (17-59) U/L ALT 26 (6-50) U/L Alkaline Phosphatase 42 (38-126) U/L Total Protein 8.0 (6.3-8.2) g/dL Albumin 4.8 (3.5-5.1) g/dL Patient Weight 10/22/24 23:59 Weight 118 kg
[2024-10-22 12:36] LABS: Troponin I < 0.012 ng/mL (0.000-0.034)
--- NOTE | 2024-10-22 12:39 | P.HP_ITS ---
H&P: HPI History of Present Illness Date/Time: 10/22/24 12:39 Chief Complaint: Chest Pain, SOB Narrative: 74 y/o M with PMH of diabetes, HLD, HTN, pacemaker, former smoker, and aorta aneurysm presents here with chest pain and shortness of breath. The patient presents here on 10/22 for further evaluation of chest pain and shortness of breath. He reports onset of midsternal chest pain yesterday morning while he was driving. He describes the chest pain as pressure, radiation into his left arm and left fingers, constant, aggravated by exertion, and alleviated by nitroglycerin (given in ED). Chest pain is accompanied by exertional shortness of breath. He denies accompanying lower extremity edema, weight gain, URI symptoms, fever, chills, diaphoresis, nausea, diarrhea, or abdominal pain. He denies history of CT. He currently follows with a special education science teacher at [place], Mendez DEVRIES, as he has a pacemaker. The patient denies any recurrence of chest pain post nitro SL administration. Initial VS at presentation: 97.7? F, HR 67, R 16, 174/69, and 99% on RA. ED workup showed: No leukocytosis, hemoglobin 11.4, normal D-dimer, normal coags, no significant electrolyte derangements, creatinine 1.51 and GFR 45 (previously 1.6 and GFR 42 on 08/13/2024), initial troponin negative x2, BNP 132, and viral PCR negative. CXR showed no acute cardiopulmonary pathology. EKG showed electronic ventricular pacemaker and rate 64. Review of Systems Review of Systems: All systems reviewed & are unremarkable except as noted in HPI and below [facility] Past Medical History Medical History Former smoker Obesity Aorta aneurysm Pacemaker Hypertension Elevated PSA Tinnitus Diabetes Dyslipidemia Surgical History Surgical History History of back surgery Family History Family History Mother Breast cancer Cancer of unknown origin Grandparent Diabetes mellitus Sibling Diabetes mellitus Mother Family history of malignant neoplasm of uterus Family history of malignant neoplasm of breast in first degree relative Social History Social History Social History: Caffeine- occasionally coffee, tea Smoking packs per day: 2 Smoking cigarettes per day: 40.0 Years smoked: 58 Smoking pack-years: 116.00 Smoking status: Former smoker Tobacco type: cigarettes Second hand tobacco smoke exposure: No Alcohol intake: current Drinks per week: 1 Alcohol use details: monthly Substance use: never Substance use type: does not use Do You Feel Safe in your Home?: Yes Lack of Transportation: No Lack of Food: Never True Current Housing: I Have Housing Concerned About Future Housing: No Difficulty Paying Gas/Electric Bills: No Difficulty Paying for Meds: No Currently Unemployed: No Education: Grade School Difficulty w/ Childcare or Family Care: No Living arrangements: with family Spiritual care concerns: No Meds Home Medications and Allergies Home Medications ?Medication ?Instructions ?Recorded ?Confirmed ?Type aspirin 81 mg tablet,delayed 81 mg PO DAILY 04/23/19 10/22/24 History release (Adult Low Dose Aspirin) blood sugar diagnostic (Contour #100 ea 10/29/20 10/22/24 Rx Next Test Strips) loratadine 10 mg tablet 10 mg PO DAILY #90 tabs 10/10/23 10/22/24 Rx naproxen 375 mg tablet 375 mg PO BID #14 tabs 03/11/24 10/22/24 Rx hydrochlorothiazide 25 mg tablet See Rx Instructions .Route 06/19/24 10/22/24 Rx .COMPLEX #90 tabs lisinopril 40 mg tablet See Rx Instructions .Route 06/19/24 10/22/24 Rx .COMPLEX #90 tabs fenofibrate 160 mg tablet 160 mg PO DAILY #30 tabs 06/21/24 10/22/24 Rx hydralazine 25 mg tablet 25 mg PO BID #60 tabs 08/14/24 10/22/24 Rx carvedilol 25 mg tablet See Rx Instructions .Route 09/16/24 10/22/24 Rx .COMPLEX #180 tabs amlodipine 10 mg tablet See Rx Instructions .Route 09/17/24 10/22/24 Rx .COMPLEX #90 tabs meloxicam 15 mg tablet See Rx Instructions .Route 09/26/24 10/22/24 Rx .COMPLEX #90 tabs metformin 500 mg tablet,extended See Rx Instructions .Route 05/15/25 05/20/25 Rx release 24 hr .COMPLEX #270 tabs omega 0-dwi-toj-fish oil 1,000 mg 2 cap PO BID 10/22/24 10/22/24 History (120 mg-180 mg) capsule (Fish Oil) rosuvastatin 20 mg tablet 20 mg PO DAILY 10/22/24 10/22/24 History Allergies Allergy/AdvReac Type Severity Reaction Status Date / Time No Known Allergies Allergy Verified 10/22/24 09:33 Vital Signs Vital Signs - 24 hr 10/22/24 09:29 10/22/24 09:33 10/22/24 11:00 Temperature 97.7 F Pulse Rate 67 65 76 Respiratory Rate 16 17 Blood Pressure 174/69 H 151/66 H Pulse Oximetry 99 97 Oxygen Delivery Room Air 10/22/24 11:25 10/22/24 11:33 10/22/24 12:01 Temperature Pulse Rate 74 72 Respiratory Rate 19 19 Blood Pressure Pulse Oximetry 98 99 99 Oxygen Delivery Room Air Exam Const: General: comfortable and no acute distress HENMT: Face/Nose/Sinus: Normal nares present Mouth: Yes moist mucous membranes Eyes: General: appearance normal, both eyes and all related structures Pupils: Equal, round and reactive pupils present EOM: EOMs intact bilaterally Resp: Effort & Inspection: normal respiratory effort Auscultation: clear to auscultation bilaterally Cardio: Rate: regular rate Rhythm: regular rhythm Other: S1-S2 present without murmur, rub, ectopy GI: Other: Abdomen rounded but nondistended, soft, normoactive bowel sounds in all quadrants. Nontender. Skin: General skin exam: normal color and no rashes or lesions noted Wounds: no wounds Neuro: Speech: normal speech Motor exam (neuro): 5/5 motor strength present throughout Sensory Exam: normal sensation Other: A&O x4 Extrem: General: normal to inspection Psych: Mental Status: mental status grossly normal Affect: normal affect Other: Good insight and judgment, pleasant H&P: Results Labs Labs: Short CBC 10/22/24 Range/Units 09:35 WBC 5.7 (4.5-10.0) K/mm3 Hgb 11.4 L (14.0-18.0) g/dL Hct 34.7 L (42.0-52.0) % Plt Count 243 (150-375) k/mm3 [facility] 05/20/25 09:35 Sodium 142 Potassium 4.7 Chloride 108 H Carbon Dioxide 22 BUN 22 H Creatinine 1.51 H Glucose 155 H Calcium 9.6 Cardiac Enzymes 10/22/24 10/22/24 Range/Units 09:35 12:10 Troponin I < 0.012 < 0.012 (0.000-0.034) ng/mL Liver Function 10/22/24 Range/Units 09:35 Total Bilirubin 0.3 (0.2-1.3) mg/dL AST 33 (17-59) U/L ALT 26 (6-50) U/L Alkaline Phosphatase 42 (38-126) U/L Albumin 4.8 (3.5-5.1) g/dL Assessment and Plan Assessment and plan (1) Chest pain: Qualifiers: Chest pain type: unspecified Qualified Code(s): R07.9 - Chest pain, unspecified Code(s): R07.9 - Chest pain, unspecified Status: Acute Assessment and Plan: - EKG, initial: Atrial pacemaker, rate 6 - CXR showed no acute cardiopulmonary pathology. BNP within normal limits. - Troponin: < 0.012 x2 - ASA 324 given, continue as 81 daily - SL nitro PRN. Given in ED and resolved chest pain. - cardiology consulted, awaiting recs - continue statin - echo, previous (09/2024): EF 60 65%, grade 1 diastolic dysfunction. See report for full details. - cardiac catheterization, previous (2020): Mid LAD 30% - telemetry monitoring - NPO at midnight for stress test (2) Diabetes: Qualifiers: Diabetes mellitus complication status: without complication Diabetes mellitus technician terminal and repeater insulin use: without technician terminal and repeater use Diabetes mellitus type: type 2 Qualified Code(s): E11.9 - Type 2 diabetes mellitus without complications Code(s): E11.9 - Type 2 diabetes mellitus without complications Status: Chronic Assessment and Plan: - hypoglycemia protocol - POC blood glucose ACHS - home medication: Hold metformin in case of need for contrast - correct regimen ordered - high dose TIDWM, based off family - A1C 7.4% on 06/18/2024 (3) Hypertension: Qualifiers: Hypertension type: primary hypertension Qualified Code(s): I10 - Essential (primary) hypertension Code(s): I10 - Essential (primary) hypertension Status: Chronic Assessment and Plan: - chronic, currently 151/66 - continue home medications: Amlodipine, carvedilol, hydralazine, hydrochlorothiazide, lisinopril - monitor Plan Diet: Diabetic, NPO midnight GI Prophylaxis: Not currently indicated DVT Prophylaxis: SCDs IV fluids: None Lines/Tubes: Peripheral IV Code Status: DNR Quality VTE Prophylaxis VTE prophylaxis: mechanical ordered Hospitalist MIPS Advance Care Plan I have confirmed that the patient's Advanced Care Plan is present, code status is documented, or surrogate decision maker is listed in patient medical record.: Yes Medication Reconciliation I have utilized all available resources to obtain, update and review the patients current medications (includes all prescriptions, OTC, herbals, cannabis, and nutritional supplements).: Yes
--- NOTE | 2024-10-22 14:19 | ADMGEN ---
This patient, Musa Amaya Sr., was admitted to IMU Room 211-01 at 1313. Patient/family oriented to hospital policies and general routines including ID bracelet, bed and alarms, visiting hours, pain management, procedures, bathroom and other care routines, personal items, smoking policy, room service/diet, and visiting hours. Information on how to activate the Rapid Response Team has been discussed. Patient/Family are encouraged to report perceived risks to care and to ask questions if they do not understand what they are told or what they should do.
[2024-10-22 15:48] LABS: Glucose Point of Care 128 mg/dl (65-105)
[2024-10-22 15:51] LABS: Troponin I < 0.012 ng/mL (0.000-0.034)
[2024-10-22 20:03] LABS: Glucose Point of Care 110 mg/dl (65-105)
[2024-10-22] MEDS: WATER FOR IRRIGATION, STERILE 1,000 ML BOTTLE 1000 ML (20:57)
[2024-10-23] VITALS (14 sets, daily range): BP systolic 128–156; BP diastolic 55–58; PULSE 61–96; RESP 18–20; TEMP 36.1–37; O2SAT 96–99
[2024-10-23 04:24] LABS: Basophils Absolute Auto 0.1 K/mm3 (0.0-0.1); Basophils Percent Auto 0.8 % (0.2-1.2); Eosinophils Absolute Auto 0.3 K/mm3 (0-0.3); Eosinophils Percent Auto 5.4 % (0-4.4); Hematocrit 33.8 % (42.0-52.0); Hemoglobin 10.6 g/dL (14.0-18.0); Immature Granulocyte Absolute 0.02 K/mm3 (0.00-0.031); Immature Granulocyte Percent A 0.3 % (0-0.5); Lymphocytes Absolute Auto 1.49 K/mm3 (0.9-3.2); Lymphocytes Percent Auto 25.2 % (18.3-44.2); Mean Corpuscular HGB Conc 31.4 g/dl (32-36); Mean Corpuscular Hemoglobin 31.1 pg (26-34); Mean Corpuscular Volume 99.1 fl (80-100); Mean Platelet Volume 10.1 fl (7.4-10.4); Monocytes Absolute Auto 0.7 K/mm3 (0.1-0.6); Monocytes Percent Auto 12.5 % (2.6-8.5); Neutrophils Absolute Auto 3.3 K/mm3 (1.3-6.7); Neutrophils Percent Auto 55.8 % (45.5-73.1); Platelet Count Result 231 k/mm3 (150-375); Red Blood Count 3.41 M/mm3 (4.6-6.20); Red Cell Distribution Width 12.8 % (11.5-14.5); White Blood Count 5.9 K/mm3 (4.5-10.0)
[2024-10-23 04:32] LABS: Anion Gap 12 mmol/L (4-12); Blood Urea Nitrogen 23 mg/dL (9-20); Calcium 9.5 mg/dL (8.4-10.2); Carbon Dioxide 23 mmol/L (22-30); Chloride 106 mmol/L (98-107); Estimated CRCL calculation 49 ml/min; Estimated Glomerular Filt Rate 46; Glucose 115 mg/dL (65-110); Potassium 4.8 mmol/L (3.4-5.0); Sodium 141 mmol/L (137-145)
[2024-10-23 07:41] LABS: Glucose Point of Care 129 mg/dl (65-105)
--- NOTE | 2024-10-23 08:00 | EST_ITS ---
Patient Info Name: Musa Amaya Age: 74 years : 1950 Gender: Male Ht: 69 in Wt: 251 lbs BSA: 2.40 m2 HR: 67 bpm BP: 151 / 54 mmHg Exam Date: 10/23/2024 8:00 AM Patient Status: I Admit Date: 10/22/2024 Exam Type: CA stress martina w NM A regadenoson stress test was performed. Staff Referring Physician: Elijah Simms DO Attending Provider: Josue Reed Exercise Technologist: Karyn Potter Exercise Physician: Elijah Simms DO Summary 1. 1. Inconclusive lexiscan stress test for ischemic ST changes by ECG criteria due to baseline ventricular paced rhythm. 2. 2. Baseline hypertension. 3. 3. Nuclear scan to follow and will be reported separately. Please correlate with it. 4. 4. Patient informed of the above results. Protocol: Lexiscan Stress ECG Details Stage: REST Duration (min): 1 min : 36 sec HR (bpm): 68 SBP (mmHg): 151 DBP (mmHg): 54 Stage: REST Duration (min): 5 min : 54 sec HR (bpm): 70 SBP (mmHg): 151 DBP (mmHg): 54 Stage: STAGE 1 Duration (min): 0 min : 59 sec HR (bpm): 77 SBP (mmHg): 153 DBP (mmHg): 44 Stage: RECOVERY Duration (min): 1 min : 0 sec HR (bpm): 78 SBP (mmHg): 153 DBP (mmHg): 44 Stage: RECOVERY Duration (min): 2 min : 0 sec HR (bpm): 76 SBP (mmHg): 153 DBP (mmHg): 44 Stage: RECOVERY Duration (min): 3 min : 0 sec HR (bpm): 75 SBP (mmHg): 138 DBP (mmHg): 45 Stage: RECOVERY Duration (min): 3 min : 6 sec HR (bpm): 75 SBP (mmHg): 138 DBP (mmHg): 45 Rest HR: 70 bpm Peak HR: 81 bpm Rest Sys BP: 151 mmHg Peak Sys BP: 153 mmHg Max Pred HR: 146 bpm % Max Pred HR: 55 % Target HR: 124 bpm Max RPP: 12,393 bpm*mmHg Termination Reason: Completed protocol Cardiac Symptoms: Shortness of breath Total Time: 1 min : 0 sec Rest Metz BP: 54 mmHg Peak Metz BP: 44 mmHg Total Dose: 0.4 mg Resting ECG Atrial sense- ventricular paced rhythm. Stress ECG No ST changes. Arrhythmias None. Report Signatures
--- NOTE | 2024-10-23 08:00 | PM.PNCARD ---
Progress Note: A&P Assessment and Plan (1) Chest pain: Qualifiers: Chest pain type: unspecified Qualified Code(s): R07.9 - Chest pain, unspecified Code(s): R07.9 - Chest pain, unspecified Status: Acute Assessment and Plan: PA r/o by serial troponins. Obtain [employer] myoview. If negative may d/c home from cardiology standpoint. (2) Dyslipidemia: Code(s): E78.5 - Hyperlipidemia, unspecified Status: Acute Assessment and Plan: On Pravastatin, Niacin, Vascepa. (3) Hypertension: Qualifiers: Hypertension type: primary hypertension Qualified Code(s): I10 - Essential (primary) hypertension Code(s): I10 - Essential (primary) hypertension Status: Chronic Assessment and Plan: Stable. (4) Pacemaker: Code(s): Z95.0 - Presence of cardiac pacemaker Status: Acute Assessment and Plan: Biotronik recently checked and normal function. Subjective Date/time seen: 10/23/24 08:00 Interval history: No chest pain or sob. Exam Const: General: cooperative, healthy appearing and comfortable Orientation/consciousness: oriented to person, oriented to place and oriented to time Resp: Auscultation: clear to auscultation bilaterally, no crackles, no rales, no rhonchi and no wheezes Cardio: Rate: regular rate Rhythm: regular rhythm Heart sounds: no murmurs Peripheral pulses: dorsalis pedis present Neuro: General: oriented to person, oriented to place and oriented to time Extrem: Right lower extremity: no edema Left lower extremity: no edema Objective Data Vital Signs Vital Signs: Vital Signs - 24 hr 10/22/24 09:29 10/22/24 09:33 10/22/24 11:00 Temperature 97.7 F Pulse Rate 67 65 76 Respiratory Rate 16 17 Blood Pressure 174/69 H 151/66 H Pulse Oximetry 99 97 Oxygen Delivery Room Air Fraction of Inspired Oxygen 10/22/24 11:25 10/22/24 11:33 10/22/24 12:01 Temperature Pulse Rate 74 72 Respiratory Rate 19 19 Blood Pressure Pulse Oximetry 98 99 99 Oxygen Delivery Room Air Fraction of Inspired Oxygen 10/22/24 12:45 10/22/24 12:46 10/22/24 13:44 Temperature 97.9 F Pulse Rate 62 69 67 Respiratory Rate 18 18 20 Blood Pressure 134/51 L 142/66 H Pulse Oximetry 99 99 97 Oxygen Delivery Fraction of Inspired Oxygen 10/22/24 14:00 10/22/24 16:00 10/22/24 16:00 Temperature 97.9 F Pulse Rate 75 69 Respiratory Rate 20 Blood Pressure 149/56 H Pulse Oximetry 98 Oxygen Delivery Room Air Fraction of Inspired Oxygen 10/22/24 16:00 10/22/24 18:00 10/22/24 19:44 Temperature 98.1 F Pulse Rate 69 67 66 Respiratory Rate 20 Blood Pressure 151/62 H Pulse Oximetry 98 Oxygen Delivery Fraction of Inspired Oxygen 10/22/24 20:00 10/22/24 20:00 10/22/24 22:00 Temperature Pulse Rate 65 64 Respiratory Rate Blood Pressure Pulse Oximetry Oxygen Delivery CPAP Fraction of Inspired Oxygen 10/22/24 23:18 10/22/24 23:18 10/22/24 23:41 Temperature Pulse Rate 64 Respiratory Rate Blood Pressure Pulse Oximetry 97 97 Oxygen Delivery CPAP BiPAP CPAP Fraction of Inspired Oxygen 21 10/22/24 23:44 10/23/24 00:00 10/23/24 02:00 Temperature 98.3 F Pulse Rate 64 63 96 Respiratory Rate 21 H Blood Pressure 117/40 L Pulse Oximetry 97 Oxygen Delivery Fraction of Inspired Oxygen 10/23/24 03:25 10/23/24 03:59 10/23/24 04:00 Temperature Pulse Rate 67 65 Respiratory Rate Blood Pressure Pulse Oximetry 98 Oxygen Delivery CPAP CPAP Fraction of Inspired Oxygen 10/23/24 04:11 10/23/24 06:00 Temperature 98.4 F Pulse Rate 67 71 Respiratory Rate 18 Blood Pressure 156/58 H Pulse Oximetry 99 Oxygen Delivery Fraction of Inspired Oxygen Intake/Output Intake/Output: Intake & Output 10/20/24 10/21/24 10/22/24 10/23/24 23:59 23:59 23:59 23:59 Intake Total 780 250 Balance 780 250 Meds/Results Medications: Active Medications Generic Name Dose Route Start Last Admin Trade Name Freq PRN Reason Stop Dose Admin Acetaminophen 650 mg 10/22/24 12:30 Acetaminophen 325 Mg Tablet PO Q4H PRN Mild Pain (1-3) or Fever Amlodipine Besylate 10 mg 10/23/24 09:00 Amlodipine Besylate 10 Mg Tablet BY MOUTH DAILY LISA Aspirin 81 mg 10/23/24 09:00 Aspirin 81 Mg Enteric Tablet PO QAM [facility] Carvedilol 25 mg 10/23/24 09:00 Carvedilol 25 Mg Tablet PO Q12HR [facility] Dextrose 12.5 gm 10/22/24 12:46 Dextrose 50% 25 Gm/50 Ml Syringe IV PUSH PRN PRN Hypoglycemia Protocol Fenofibrate 145 mg 10/23/24 09:00 Fenofibrate Nanocrystallized 145 Mg Tablet PO QAM [facility] Fish Oil 2 gm 10/23/24 09:00 Goldvein 3 Polyunsat Fatty Acids 1 Gm Cap PO BID [facility] Glucagon 1 mg 10/22/24 12:46 Glucagon For Inj 1 Mg Vial IM PRN PRN Hypoglycemia Protocol Glucose 15 gm 10/22/24 12:46 Glucose Oral Gel 15 Gm Of Glucse In 37.5 Gm Tube PO PRN PRN Hypoglycemia Protocol Hydralazine HCl 25 mg 10/23/24 09:00 Hydralazine Hcl 25 Mg Tablet PO BID [facility] Hydrochlorothiazide 25 mg 10/23/24 09:00 Hydrochlorothiazide 25 Mg Tablet PO DAILY [facility] Dextrose 1,000 mls @ 100 mls/hr 10/22/24 12:46 Dextrose 5% 1,000 Ml IVPB PRN PRN Hypoglycemia Protocol Insulin Aspart 4 - 8 units 10/22/24 17:00 10/22/24 16:21 Insulin Aspart (*Bkc) 100 Units/Ml SUB-Q Not Given TIDWM [facility] Protocol Lisinopril 40 mg 10/23/24 09:00 Lisinopril 20 Mg Tablet PO DAILY [facility] Loratadine 10 mg 10/23/24 09:00 Loratadine 10 Mg Tablet PO DAILY [facility] Meloxicam 15 mg 10/23/24 09:00 Meloxicam 7.5 Mg Tablet PO QAM [facility] Miscellaneous Information 0 each 10/22/24 00:01 Naproxen Duplicate Therapy With Meloxicam D/C One??? XX 11/21/24 00:00 CLARIFY [facility] Naproxen 375 mg 10/23/24 09:00 Naproxen 375 Mg Tablet PO BID [facility] Nitroglycerin 0.4 mg 10/22/24 12:46 Nitroglycerin Sl 0.4 Mg Tablet SUBLINGUAL Q5MIN PRN Chest Pain Rosuvastatin Calcium 20 mg 10/23/24 09:00 Rosuvastatin 20 Mg Tablet PO DAILY [facility] Radiology Results: ITS Impressions Chest X-Ray 10/22/24 10:09 IMPRESSION: No acute cardiopulmonary pathology. Labs Labs: Laboratory Results - last 24 hr 10/22/24 10/22/24 10/22/24 09:35 11:04 12:10 WBC 5.7 RBC 3.65 L Hgb 11.4 L Hct 34.7 L MCV 95.1 MCH 31.2 MCHC 32.9 RDW 13.1 Plt Count 243 MPV 9.7 Immature Gran % (Auto) 0.4 Neut % (Auto) 60.0 Lymph % (Auto) 24.3 Henderson % (Auto) 9.3 H Eos % (Auto) 4.9 H Baso % (Auto) 1.1 Lymph # (Auto) 1.38 Henderson # (Auto) 0.5 Eos # (Auto) 0.3 Baso # (Auto) 0.1 Abs Immat Gran (auto) 0.02 Absolute Neuts (auto) 3.4 Absolute Nucleated RBC 0.000 Nucleated RBC % 0.0 PT 13.8 INR 1.0 APTT 30.8 D-Dimer 0.39 Sodium 142 Potassium 4.7 Chloride 108 H Carbon Dioxide 22 Anion Gap 12 BUN 22 H Creatinine 1.51 H Estim Creat Clear Calc 50 Estimated GFR 45 L Glucose 155 H POC Capillary Glucose Calcium 9.6 Total Bilirubin 0.3 AST 33 ALT 26 Alkaline Phosphatase 42 Troponin I < 0.012 < 0.012 NT-Pro-B Natriuret Pep 132 H Total Protein 8.0 Albumin 4.8 Lipase 78 Influenza A (RT-PCR) Negative Influenza B (RT-PCR) Negative RSV (RT-PCR) Negative SARS-CoV-2 RNA (RT-PCR) Negative 10/22/24 10/22/24 10/22/24 15:20 15:28 20:01 WBC RBC Hgb Hct MCV MCH MCHC RDW Plt Count MPV Immature Gran % (Auto) Neut % (Auto) Lymph % (Auto) Henderson % (Auto) Eos % (Auto) Baso % (Auto) Lymph # (Auto) Henderson # (Auto) Eos # (Auto) Baso # (Auto) Abs Immat Gran (auto) Absolute Neuts (auto) Absolute Nucleated RBC Nucleated RBC % PT INR APTT D-Dimer Sodium Potassium Chloride Carbon Dioxide Anion Gap BUN Creatinine Estim Creat Clear Calc Estimated GFR Glucose POC Capillary Glucose 128 H 110 H Calcium Total Bilirubin AST ALT Alkaline Phosphatase Troponin I < 0.012 NT-Pro-B Natriuret Pep Total Protein Albumin Lipase Influenza A (RT-PCR) Influenza B (RT-PCR) RSV (RT-PCR) SARS-CoV-2 RNA (RT-PCR) 10/23/24 10/23/24 03:52 07:24 WBC 5.9 RBC 3.41 L Hgb 10.6 L Hct 33.8 L MCV 99.1 MCH 31.1 MCHC 31.4 L RDW 12.8 Plt Count 231 MPV 10.1 Immature Gran % (Auto) 0.3 Neut % (Auto) 55.8 Lymph % (Auto) 25.2 Henderson % (Auto) 12.5 H Eos % (Auto) 5.4 H Baso % (Auto) 0.8 Lymph # (Auto) 1.49 Henderson # (Auto) 0.7 H Eos # (Auto) 0.3 Baso # (Auto) 0.1 Abs Immat Gran (auto) 0.02 Absolute Neuts (auto) 3.3 Absolute Nucleated RBC 0.000 Nucleated RBC % 0.0 PT INR APTT D-Dimer Sodium 141 Potassium 4.8 Chloride 106 Carbon Dioxide 23 Anion Gap 12 BUN 23 H Creatinine 1.48 H Estim Creat Clear Calc 49 Estimated GFR 46 L Glucose 115 H POC Capillary Glucose 129 H Calcium 9.5 Total Bilirubin AST ALT Alkaline Phosphatase Troponin I NT-Pro-B Natriuret Pep Total Protein Albumin Lipase Influenza A (RT-PCR) Influenza B (RT-PCR) RSV (RT-PCR) SARS-CoV-2 RNA (RT-PCR)
[2024-10-23] MEDS: LORATADINE 10 MG TABLET PO (09:45)
[2024-10-23] MEDS: hydrALAZINE HCL 25 MG TABLET PO ×2 (09:45→16:57)
[2024-10-23] MEDS: ROSUVASTATIN 20 MG TABLET PO (09:45)
[2024-10-23] MEDS: amLODIPine BESYLATE 10 MG TABLET BY MOUTH (09:45)
[2024-10-23] MEDS: MELOXICAM 7.5 MG TABLET 15 MG PO (09:45)
[2024-10-23] MEDS: lisinopriL 20 MG TABLET 40 MG PO (09:45)
[2024-10-23] MEDS: FENOFIBRATE NANOCRYSTALLIZED 145 MG TABLET PO (09:45)
[2024-10-23] MEDS: hydroCHLOROthiazide 25 MG TABLET PO (09:45)
[2024-10-23] MEDS: ASPIRIN 81 MG ENTERIC TABLET PO (09:45)
[2024-10-23] MEDS: OMEGA 3 POLYUNSAT FATTY ACIDS 1 GM CAP 2 GM PO ×2 (09:45→16:57)
[2024-10-23 13:07] LABS: Glucose Point of Care 160 mg/dl (65-105)
[2024-10-23] MEDS: carvediloL 25 MG TABLET PO (13:14)
--- NOTE | 2024-10-23 15:54 | P.DS_ITS ---
DS: Admitting Diagnosis Discharge Date 10/23/2024 Admitting Diagnosis Chest pain DS: Discharge Diagnosis Discharge Diagnosis (1) Chest pain: Qualifiers: Chest pain type: unspecified Qualified Code(s): R07.9 - Chest pain, unspecified Code(s): R07.9 - Chest pain, unspecified Status: Acute Assessment and Plan: Please refer to hospital course for brief summary - EKG, initial: Atrial pacemaker, rate 6 - CXR showed no acute cardiopulmonary pathology. BNP within normal limits. - Troponin: < 0.012 x2 - ASA 324 given, continue as 81 daily - SL nitro PRN. Given in ED and resolved chest pain. - cardiology consulted, awaiting recs - continue statin - echo, previous (09/2024): EF 60 65%, grade 1 diastolic dysfunction. See report for full details. - cardiac catheterization, previous (2020): Mid LAD 30% - telemetry monitoring - stress test (2) Diabetes: Qualifiers: Diabetes mellitus type: type 2 Diabetes mellitus terminal make up operator insulin use: without prison use Diabetes mellitus complication status: without complication Qualified Code(s): E11.9 - Type 2 diabetes mellitus without complications Code(s): E11.9 - Type 2 diabetes mellitus without complications Status: Chronic Assessment and Plan: -Continue home med - A1C 7.4% on 06/18/2024 (3) Hypertension: Qualifiers: Hypertension type: primary hypertension Qualified Code(s): I10 - Essential (primary) hypertension Code(s): I10 - Essential (primary) hypertension Status: Chronic Assessment and Plan: - chronic, currently 151/66 - continue home medications: Amlodipine, carvedilol, hydralazine, hydrochlorothiazide, lisinopril - monitor DS: Summary Hospital Course Hospital Course: 74 y/o M with PMH of diabetes, HLD, HTN, pacemaker, former smoker, and aorta aneurysm presents here with chest pain and shortness of breath. The patient presents here on 10/22 for further evaluation of chest pain and shortness of breath. He reports onset of midsternal chest pain yesterday morning while he was driving. He describes the chest pain as pressure, radiation into his left arm and left fingers, constant, aggravated by exertion, and alleviated by nitroglycerin (given in ED). Chest pain is accompanied by exertional shortness of breath. He denies accompanying lower extremity edema, weight gain, URI symptoms, fever, chills, diaphoresis, nausea, diarrhea, or abdominal pain. He denies history of [place]. 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 The patient denies any recurrence of chest pain post nitro SL administration. Initial VS at presentation: 97.7? F, HR 67, R 16, 174/69, and 99% on RA. ED workup showed: No leukocytosis, hemoglobin 11.4, normal D-dimer, normal coags, no significant electrolyte derangements, creatinine 1.51 and GFR 45 (previously 1.6 and GFR 42 on 08/13/2024), initial troponin negative x2, BNP 132, and viral PCR negative. CXR showed no acute cardiopulmonary pathology. EKG showed electronic ventricular pacemaker and rate 64. Patient underwent Lexiscan which shows no definitive ischemia or infarct. Normal left ventricular ejection fraction measuring 69%. Patient needs to follow up with Cardiology. Called Dr. Simms and he agrees to discharge the patient. On the day of discharge, the patient was seen and examined. Vital signs were stable. Physical exam were stable and labs were reviewed at length. Discharge instructions, medications, and follow-up appointments were discussed with the patient at length and all day questions were answered. ER warnings were given. Status at Discharge Cognitive/behavioral status at discharge: Stable Time Spent with Patient Time attestation: Total time spent providing and/or coordinating discharge services: 45 minutes Exam Const: General: comfortable and no acute distress HENMT: Face/Nose/Sinus: Normal nares present Mouth: Yes moist mucous membranes Eyes: General: appearance normal, both eyes and all related structures Pupils: Equal, round and reactive pupils present EOM: EOMs intact bilaterally Resp: Effort & Inspection: normal respiratory effort Auscultation: clear to auscultation bilaterally Cardio: Rate: regular rate Rhythm: regular rhythm Other: S1-S2 present without murmur, rub, ectopy GI: Other: Abdomen rounded but nondistended, soft, normoactive bowel sounds in all quadrants. Nontender. Skin: General skin exam: normal color and no rashes or lesions noted Wounds: no wounds Neuro: Cranial nerves: Yes Equal, round and reactive pupils present Speech: normal speech Motor exam (neuro): 5/5 motor strength present throughout Sensory Exam: normal sensation Other: A&O x4 Extrem: General: normal to inspection Psych: Mental Status: mental status grossly normal Affect: normal affect Other: Good insight and judgment, pleasant DS: Data Data Completed and Pending Labs on day of discharge: Labs from last 24 hours 10/23/24 10/23/24 10/23/24 12:56 07:24 03:52 WBC 5.9 RBC 3.41 L Hgb 10.6 L Hct 33.8 L MCV 99.1 MCH 31.1 MCHC 31.4 L RDW 12.8 Plt Count 231 MPV 10.1 Immature Gran % (Auto) 0.3 Neut % (Auto) 55.8 Lymph % (Auto) 25.2 [place] % (Auto) 12.5 H Eos % (Auto) 5.4 H Baso % (Auto) 0.8 Lymph # (Auto) 1.49 [place] # (Auto) 0.7 H Eos # (Auto) 0.3 Baso # (Auto) 0.1 Abs Immat Gran (auto) 0.02 Absolute Neuts (auto) 3.3 Absolute Nucleated RBC 0.000 Nucleated RBC % 0.0 Sodium 141 Potassium 4.8 Chloride 106 Carbon Dioxide 23 Anion Gap 12 BUN 23 H Creatinine 1.48 H Estim Creat Clear Calc 49 Estimated GFR 46 L Glucose 115 H POC Capillary Glucose 160 H 129 H Calcium 9.5 10/22/24 20:01 WBC RBC Hgb Hct MCV MCH MCHC RDW Plt Count MPV Immature Gran % (Auto) Neut % (Auto) Lymph % (Auto) [place] % (Auto) Eos % (Auto) Baso % (Auto) Lymph # (Auto) [place] # (Auto) Eos # (Auto) Baso # (Auto) Abs Immat Gran (auto) Absolute Neuts (auto) Absolute Nucleated RBC Nucleated RBC % Sodium Potassium Chloride Carbon Dioxide Anion Gap BUN Creatinine Estim Creat Clear Calc Estimated GFR Glucose POC Capillary Glucose 110 H Calcium Imaging Radiologist's impression: ITS Impressions Chest X-Ray 10/22/24 10:09 IMPRESSION: No acute cardiopulmonary pathology. Lexiscan Stress Test 10/23/24 12:57 IMPRESSION: 1. No definite ischemia or infarct. 2. Normal left ventricular ejection fraction measuring 69%. Discharge Plan Discharge Attending physician on discharge: Josue Reed Consulting providers: Elijah Simms Discharging Clinician: Josue Reed Anticipated Discharge Date/Time: 10/23/24 16:06 Patient Disposition: Home Activity: as tolerated Diet: heart healthy Discharge Instructions: Check blood pressure 1 to 2 times a day. Record and bring into your doctor for review. Call your doctor if your blood pressure is greater than 180/110 or less than 90/45. Walk with cane or other assist device. Take precautions to avoid falls. Rise slowly from a lying or sitting position. Pause before standing or walking. Contact your doctor or call 911 and come to the Emergency Room if you have any type of trauma, lightheadedness with standing or other worrisome symptoms. Avoid NSAIDs (ibuprofen, naproxen, Aleve). Tylenol is safe to take. Follow-up with your primary care provider in 1-2 weeks. Please call for appointment. Follow-up with Cardiology in 2-4 weeks. Please call for an appointment. Patient Instructions: Antibiotic Form Patient Language: Frisian Stand Alone Forms: General Discharge Information Follow-up/Referrals: Elijah Simms DO [Physician] - Alisia Jc APRN [Primary Care Provider] - Discharge Medications: New nitroglycerin [Nitrostat] 0.4 mg Tablet, Sublingual 0.4 mg sublingual Q5MIN PRN (Reason: Chest Pain) Qty: 15 0RF Continued hydralazine 25 mg tablet 25 mg PO BID Qty: 60 5RF (DME) Contour Next Test Strips Strip See Rx Instructions .ROUTE .MEDSUPPLY Qty: 100 12RF Rx Instructions: use to check blood sugar 3 times daily naproxen 375 mg tablet 375 mg PO BID Qty: 14 0RF rosuvastatin 20 mg tablet 20 mg PO DAILY omega 3-ibp-frl-fish oil [Fish Oil] 1,000 (120-180) mg capsule 2 cap PO BID aspirin [Adult Low Dose Aspirin] 81 mg tablet,delayed release (DR/EC) 81 mg PO DAILY loratadine 10 mg tablet 10 mg PO DAILY Qty: 90 3RF lisinopril 40 mg tablet See Rx Instructions .ROUTE .COMPLEX Qty: 90 3RF Dose Instruction: TAKE 1 TABLET BY MOUTH EVERY DAY Rx Instructions: TAKE 1 TABLET BY MOUTH EVERY DAY hydrochlorothiazide 25 mg tablet See Rx Instructions .ROUTE .COMPLEX Qty: 90 3RF Dose Instruction: TAKE 1 TABLET BY MOUTH EVERY DAY Rx Instructions: TAKE 1 TABLET BY MOUTH EVERY DAY fenofibrate 160 mg tablet 160 mg PO DAILY Qty: 30 5RF carvedilol 25 mg tablet See Rx Instructions .ROUTE .COMPLEX Qty: 180 3RF Dose Instruction: TAKE 1 TABLET BY MOUTH EVERY 12 HOURS WITH MEALS Rx Instructions: TAKE 1 TABLET BY MOUTH EVERY 12 HOURS WITH MEALS amlodipine 10 mg tablet See Rx Instructions .ROUTE .COMPLEX Qty: 90 1RF Dose Instruction: TAKE 1 TABLET BY MOUTH EVERY DAY Rx Instructions: TAKE 1 TABLET BY MOUTH EVERY DAY meloxicam 15 mg tablet See Rx Instructions .ROUTE .COMPLEX Qty: 90 1RF Dose Instruction: TAKE 1 TABLET BY MOUTH EVERY DAY Rx Instructions: TAKE 1 TABLET BY MOUTH EVERY DAY metformin 500 mg tablet extended release 24 hr See Rx Instructions .ROUTE .COMPLEX Qty: 270 1RF Dose Instruction: TAKE 1 TABLET BY MOUTH WITH BREAKFAST AND 2 TABLETS BY MOUTH WITH DINNER Rx Instructions: TAKE 1 TABLET BY MOUTH WITH BREAKFAST AND 2 TABLETS BY MOUTH WITH DINNER Date of admission: 10/22/24 12:30 Primary Care Provider: Alisia Jc Admitting Provider: Josue Reed Attending physician on admission: Josue Reed Condition: Stable
[2024-10-23 16:28] LABS: Glucose Point of Care 125 mg/dl (65-105)
== END 2024-10-23 17:05 | disposition home or self-care (01) ==
LOC: ANHED 09:53 → ANHIMU 12:58
PROVIDERS: Student in an Organized Health Care Education/Training Program; Admitting Provider General Practice; Emergency Provider Physician Assistant; PCP Nurse Practitioner Adult Health; Visit Provider General Practice
DX: R07.9 Chest pain, unspecified (principal); R06.02 Shortness of breath; E11.9 Type 2 diabetes mellitus without complications; I10 Essential (primary) hypertension; E78.5 Hyperlipidemia, unspecified; I71.9 Aortic aneurysm of unspecified site, without rupture; G47.33 Obstructive sleep apnea (adult) (pediatric); E66.9 Obesity, unspecified; Z68.37 Body mass index [BMI] 37.0-37.9, adult; Z20.822 Contact with and (suspected) exposure to COVID-19; Z79.82 Long term (current) use of aspirin; Z79.84 Long term (current) use of oral hypoglycemic drugs; Z79.899 Other long term (current) drug therapy; Z87.891 Personal history of nicotine dependence; Z95.0 Presence of cardiac pacemaker
CPT/HCPCS: 36415; 71046; 78452; 80048; 80053; 82948; 83690; 83880; 84484; 85025; 85380; 85610; 85730; 87637; 93005; 93017; 96372; 99285; A9270; A9502; G0378; J2785

== ENCOUNTER 2024-12-16 09:19 | Outpatient (CLI) | payer MEDICARE, SELFPAY ==
--- OUTSIDE RECORDS SUMMARY | 2024-12-16 09:24 | XMS_ITS | Clinical Summary ---
Author Organization [facility] Address [address] [place] [address] Care Team Providers Care Straw Boss Name Role Phone Kwadwo Roque MD Primary Care Provider [phone] Allergies No known active allergies Medications lancets [...] (03/09/2021): Added automatically from request for surgery [id number] Syncope and collapse 03/02/2021 Overview (03/17/2021): Cardiac monitoring showed high-grade AV block. Status post Biotronik Edora 8 DRT on 10 March 2021 (RL). Personal history of colonic polyps 05/14/2020 Overview (05/14/2020): Added automatically from request for surgery [id number] Pre-op chest exam 05/14/2020 Overview (05/14/2020): Added automatically from request for surgery [id number] Arthritis of left knee 04/09/2020 Assessment & Plan (04/09/2020 3:42 PM DIGITAL IMAGER): Patient has moderate arthritis of the knee with reactive synovitis. He has prominence of the tibial tubercle and may have chronic patella tendinitis. After reviewing the treatment options patient elected undergo a cortisone injection today. He tolerated the procedure well. History of colon polyps 05/23/2019 Overview (05/23/2019): Added automatically from request for surgery [id number] Screen for colon cancer 05/23/2019 Overview (05/23/2019): Added automatically from request for surgery [id number] s/p XLIF L3-4 and L4-5 on 05/2019, [...] (09/09/2016): Hyperlipidemia Coronary artery disease invo lving marshall coronary artery of marshall heart without angina pectoris 10/19/2013 Overview (09/07/2016): CAD (coronary artery disease) Type 2 diabetes mellitus with hyperglycemia 04/06 Overview (09/08/2016): Type II diabetes mellitus Chronic bronchitis 01/24/2013 Overview (09/08/2016): Chronic bronchitis Hypertension 03/12/2012 Overview (09/08/2016): Hypertension Chest pain Type 2 diabetes mellitus with other specified co mplication Class 2 obesity without serious comorbidity in a dult Encounters Date Type Department Care Team Description 12/11/2024 12:30 PM CDT Ancillary Procedure [place] [employer] [address] [place] [id number] Coronary artery disease involving marshall coronary artery of marshall heart without angina pectoris; Pacemaker; SSS (sick [...] pain, turned tractor Hx Other Medical silent [place] Hyperlipidemia Hyperlipidemia Hx Other Medical left eye [...] on file Legal Sex Male 7:41 PM DIGITAL IMAGER Gender Identity Not on file Sexual Orientation [...] 7:34 AM CDT Height 175.3 cm (5' 9) 01/02/2024 7:34 AM CDT Body Mass Index [...] 07/18/2016, Additional history exists Influenza Vaccine (#1) 2025 9, 03/20/2017, 05/01/2015, Additional history exists Hepatitis [...] 05/06/2021, 11/28/2015 Medical Devices Implanted Type Area 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 Electrical 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 Device Identifier Shelf Expiration Date Model / Serial / Lot Biotronik Inc [id number] Endocardial Pacing Lead Promri Solia Jt 45 - [id number] - [id number] Implanted:Qty: 1 on 03/10/2021 by Ben Casillas MD at [facility] Lead Biotronik Inc 01/02/2023 [id number] / [id number] / Biotronik Inc [id number] Endocardial Pacing Lead Promri Solia T 53 - [id number] - [id number] Implanted:Qty: 1 on 03/10/2021 by Ben Casillas MD at [facility] Lead Biotronik Inc 10/02/2022 3771 80 / [id number] / Biotronik Inc [id number] Edora Promri 34e97c9.5mm Dual Chamber Rate Adaptive Unipolar Bipolar - [id number] - [id number] Implanted:Qty: 1 on 03/10/2021 by Ben Casillas MD at [facility] Pacemaker Biotronik Inc 06/04/2022 4071 45 / [id number] / Medtronic Sofamor Danek [id number] Infuse 14mm 23mm Absorbable Sponge Sterile Water Syringe Needle - [id number] Implanted:Qty: 1 on 08/14/2018 by Rajesh Tay MD at [facility] N/A: Spine Lumbar Medtronic Sofamor Danek 08/02/2020 [id number] / / [id number] Spacer Spinal [id number] 10d Xl Wide Peek Lordotic - [id number] - [id number] Implanted:Qty: 1 on 08/14/2018 by Rajesh Tay MD at [facility] N/A: Spine Lumbar Nuvasive Creative Spine Tech [id number] / [id number] / Spinal Graft Tech [id number] Dubois Putty Jar Graft 5cc Bone Demineralized Bone Matrix - [id number] - [id number] Implanted:Qty: 1 on 08/14/2018 by Rajesh Tay MD at [facility] N/A: Spine Lumbar Spinal Graft Tech 01/14/2021 [id number] / [id number] / Medtronic Spinal Graft [id number] Isaias Putty Filler 1cc Bone Void Demineralized Bone Matrix - [id number] - [id number] Implanted:Qty: 1 on 08/14/2018 by Rajesh Tay MD at [facility] N/A: Spine Lumbar Medtronic Spinal Graft 02/06/2021 [id number] / [id number] / Cage Spinal [id number] Modulus 10d Xl Wide Strl Ltxfre - [id number] - [id number] Implanted:Qty: 1 on 08/14/2018 by Rajesh Tay MD at [facility] N/A: Spine Lumbar Nuvasive Creative Spine Tech 02/11/2023 [id number] / [id number] / [id number] Depuy Spine [id number] Expedium 7mm 55mm 1 Innie Polyaxial Spine Screw Bone Titanium - [id number] Implanted:Qty: 4 on 08/16/2018 by Rajesh Tay MD at [facility] N/A: Spine Lumbar Depuy Spine [id number] / / Depuy Spine [id number] Expedium 7mm 50mm 1 Innie Polyaxial Spine Screw Bone Titanium - [id number] Implanted:Qty: 2 on 08/16/2018 by Rajesh Tay MD at [facility] N/A: Spine Lumbar Depuy Spine [id number] / / Depuy Spine [id number] Expedium 1 Inner Monoaxial Spine Screw Set Titanium - [id number] Implanted:Qty: 6 on 08/16/2018 by Rajesh Tay MD at [facility] N/A: Spine Lumbar Depuy Spine [id number] / / Depuy Spine [id number] Expedium 5.5mm 75mm Line Prebent Beto Spinal Titanium Nonsterile - [id number] Implanted:Qty: 2 on 08/16/2018 by Rajesh Tay MD at [facility] N/A: Spine Lumbar Depuy Spine [id number] / / Musculoskeletal Transplant [id number] Allograft Putty Freeze Dried Filler 5cc Bone Void Dbx - [id number] - [id number] Implanted:Qty: 1 on 08/16/2018 by Rajesh Tay MD at [facility] N/A: Spine Lumbar Musculoskeletal Transplant 04/24/2020 [id number] / [id number] / Procedures Procedure Name Priority Date/Time Associated Diagnosis Comments DEVICE CHECK - REMOTE Routine 12/10/2024 10:17 AM CDT Coronary artery disease involving marshall coronary artery of marshall heart without angina pectoris Pacemaker SSS (sick sinus syndrome) (HCC) High degree atrioventricular block CT LUNG CANCER SCREENING Schedule Routine, Read Routine (OP Routine) 05/06/2021 1:38 PM DIGITAL IMAGER History of tobacco abuse US ABDOMINAL AORTA Schedule Routine, Read Routine (OP Routine) 05/06/2021 12:51 PM DIGITAL IMAGER History of tobacco abuse EGFR STAT 03/09/2021 3:00 PM CDT COLONOSCOPY 06/26/2020 8:41 AM DIGITAL IMAGER HEMOGLOBIN A1C Routine 08/10/2018 1:43 PM DIGITAL IMAGER Preop testing DIABETES FOOT EXAM Routine 03/20/2017 LIPID PANEL WITH REFLEX TO DIRECT LDL Routine 03/11/2017 1:00 PM CDT Hyperlipidemia, unspecified hyperlipidemia type DIABETES EYE EXAM Routine 09/15/2016 SERUM HEPATITIS C AB Routine 02/16/2016 7:29 AM CDT from Last 3 Months or Most Recently Relevant to Health Maintenance Results * DEVICE CHECK - REMOTE (12/10/2024 10:17 AM CDT) Anatomical Region Laterality Modality Other Narrative 12/12/2024 2:09 PM CDT Images from the original result were not included. 12/11/2024 [employer] Quarterly Remote Device Check NOTE The following shows snippets from the complete quarterly report. The complete report in its entirety is attached to this Result Text in Ladies Suit Operator Periodic IEGM Detection Dec 11, 2024, 1:21:00 AM. Last in-office check: August 2024 Next in-office appointment: not scheduled Battery longevity = OK/75% AT/AF burden 0% Ap: 48% RVp: 89% No events this monitoring period Reviewed By Sirisha Garcia BINDING MACHINE OPERATOR at 1:46 PM MD Review and Recommendations below (please forward an in-basket message to your MA if check requires attention) us Brook Alaniz MD CV CARDIAC SERVICES PROCED URES Final Result * CT Lung Cancer Screening (05/06/2021 1:38 PM DIGITAL IMAGER) Anatomical Region Laterality Modality Chest N/A Computed Tomogra phy 05/06/2021 2:11 PM DIGITAL IMAGER Narrative 05/06/2021 2:21 PM DIGITAL IMAGER EXAM DESCRIPTION: CT LUNG CANCER SCREENING REASON [...] by Radha Diaz M.D. : Report ID: [id number] Reading Location: [place] [address] Procedure Note Radha Diaz MD - 05/06/2021 [...] Radha Diaz M.D. : [place] Report ID: [id number] Reading Location: [id number] us Kwadwo Roque MD IMG CT PROCEDURES Final R esult * US Abdominal Aorta (05/06/2021 12:51 PM DIGITAL IMAGER) Anatomical Region Laterality Modality Abdomen N/A Ultrasound 05/06/2021 1:06 PM DIGITAL IMAGER Narrative 05/06/2021 1:09 PM DIGITAL IMAGER EXAM DESCRIPTION: US ABDOMINAL AORTA REASON FOR [...] Bryson Macias M.D. JA: JENNY Report ID: [id number] Reading Location: [id number] Procedure Note Bryson Macias MD - 05/06/2021 [...] Bryson Macias M.D. JA: JENNY Report ID: [id number] Reading Location: [place] [address] us Kwadwo Roque MD IMG US PROCEDURES [...] MD LAB BLOOD ORDERABLES Final Re sult RAYJAKUB MOODY (STEPHEN) [facility] Department [place] [address] * COLONOSCOPY (06/26/2020 8:41 AM DIGITAL IMAGER) Anatomical Region Laterality Modality Other Narrative Procedure Note Connor Patel MD - 06/26/2020 8:41 AM CST [facility] Patient Name: Musa Amaya Procedure Date: 06/26/2020 8:41 AM Date of : 1950 Admit Type: Outpatient Age: 70 Gender: Male Attending MD: Connor Patel M.D. Room: [facility] ENDOSCOPY ROOM 2 Note [...] The scopewas passed under direct vision. The [id number] was introduced through the anus andadvanced to [...] 8:41 AM Procedure Code(s): --- Professional --- 44189, Colonoscopy, flexible; diagnostic, including collection of specimen(s) by brushing or washing, when performed (separateprocedure) Diagnosis Code(s): --- Professional --- K64.9, Unspecified hemorrhoids CPT copyright 2017 [employer]. All rights reserved. The codes documented in this report are preliminary and upon glazier apprentice reviewmay be revised to meet current compliance requirements. Recognized by the [employer] for promoting quality in endoscopy us Connor Patel MD ENDOSCOPY PROCEDURES Final Re sult * (ABNORMAL) Hemoglobin A1c (08/10/2018 1:43 PM DIGITAL IMAGER) Hgb A1C 6.9(H) 4.0 - 5.6 % DOUG MOTA Estimated Average Glucose 151 mg/dL DOUG MOTA Comment: The ADA recommends reporting an estimated Average Glucose (eAG) with all Hemoglobin A1c results using the equation derived from a study of 507 normal and diabetic adults. Minority populations were underrepresented and children were not included. (Diabetes Care 31:6941-7412, 2008). The eAG is not equivalent to a fasting glucose. Blood specimen (specimen) 08/10/2018 1:43 PM DIGITAL IMAGER 08/10/2018 4:10 PM DIGITAL IMAGER Narrative DOUG MOTA - 08/10/2018 4:53 PM DIGITAL IMAGER Rajesh Tay MD LAB BLOOD ORDERABLES F inal Result DOUG [id number] [address] [place] [address] * DIABETES FOOT EXAM (03/20/2017) Diabetic Foot Exam Normal Historical Provider HEALTH [...] LAB BLOOD ORDERABLES Final Result DOUG MOTA [address] [address] [place] [address] * DIABETES EYE EXAM (09/15/2016) Diabetic Eye Exam Unknown us Historical Provider MD HEALTH MAINTENANCE Final Result * Serum Hepatitis C ab (02/16/2016 7:29 AM CDT) HCV ab Negative Negative CDR HISTOR ICAL RESULTS Serum 02/16/2016 7:29 AM CDT Whitney Castillo MD LAB BLOOD ORDERABLES Final Result CDR HISTORICAL RESULTS from Last 3 Months or Most Recently Relevant to Health Maintenance Insurance [address] [place] [id number] MEDICARE MEDICARE HUMAN MEDICARE SUPPLE[place] [address] [place] [address] CLAIMS OFFICE MEDICARE Advance Directives For more information, please contact: [phone] * Full Code (Latest Code Status on [...] 5:37 PM 05/31/2019 7:35 PM Care Teams Straw Boss Relationship Specialty Start Date End Date Kwadwo Roque MD PCP - General Family Practice 03/01/21
--- OUTSIDE RECORDS SUMMARY | 2024-12-16 09:24 | XMS_ITS | Referral Summary ---
Author Organization [facility] Address [id number] [place] [id number] Care Team Providers Care Associate Professor Of Library Science Name Role Phone Kwadwo Roque MD Primary Care Provider [phone] Encounters Date Type Department Care Team Description 12/11/2024 12:30 PM CDT Ancillary Procedure [place] Chargeback Specialist [id number] [address] Coronary artery disease involving mesa grande coronary artery of mesa grande heart without angina pectoris; Pacemaker; SSS (sick [...] (03/09/2021): Added automatically from request for surgery [id number] Syncope and collapse 03/02/2021 Overview (03/17/2021): Cardiac monitoring showed high-grade AV block. Status post Biotronik Edora 8 DRT on 10 March 2021 (RL). 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 He has prominence of the tibial tubercle and may have chronic patella tendinitis. After reviewing the treatment options patient elected undergo a cortisone injection today. He tolerated the procedure well. History of colon polyps 05/23/2019 Overview (05/23/2019): Added automatically from request for surgery [id number] Screen for colon cancer 05/23/2019 Overview (05/23/2019): Added automatically from request for surgery [id number] s/p XLIF L3-4 and L4-5 on 05/2019, [...] (09/09/2016): Hyperlipidemia Coronary artery disease invo lving mesa grande coronary artery of mesa grande heart without angina pectoris 10/19/2013 Overview (09/07/2016): [...] on file Legal Sex Male 7:41 PM WEARING APPAREL ASSEMBLER Gender Identity Not on file Sexual Orientation [...] on file Medical Devices Implanted Type Area Locker Attendant Device Identifier Shelf Expiration Date Model / Serial / Lot Biotronik Inc [id number] Endocardial Pacing Lead Promri Solia Jt 45 - [id number] - [id number] Implanted:Qty: 1 on 03/10/2021 by Ben Casillas MD at [facility] Lead Biotronik Inc 01/02/2023 [id number] / [id number] / Biotronik Inc [id number] Endocardial Pacing Lead Promri Solia T 53 - [id number] - [id number] Implanted:Qty: 1 on 03/10/2021 by Ben Casillas MD at [facility] Lead Biotronik Inc 10/02/2022 3771 80 / [id number] / Biotronik Inc [id number] Edora Promri 32q21q4.5mm Dual Chamber Rate Adaptive Unipolar Bipolar - [id number] - [id number] Implanted:Qty: 1 on 03/10/2021 by Ben Casillas MD at [facility] Pacemaker Biotronik Inc 06/04/2022 4071 45 / [id number] / Medtronic Sofamor Danek [id number] Infuse 14mm 23mm Absorbable Sponge Sterile Water Syringe Needle - [id number] Implanted:Qty: 1 on 08/14/2018 by Rajesh Tay MD at [facility] N/A: Spine Lumbar Medtronic Sofamor Danek 08/02/2020 [id number] / / [id number] Spacer Spinal [id number] 10d Xl Wide Peek Lordotic - [id number] - [id number] Implanted:Qty: 1 on 08/14/2018 by Rajesh Tay MD at [facility] N/A: Spine Lumbar Nuvasive Creative Spine Tech [id number] / [id number] / Spinal Graft Tech [id number] [place] Putty Jar Graft 5cc Bone Demineralized Bone Matrix - [id number] - [id number] Implanted:Qty: 1 on 08/14/2018 by Rajesh Tay MD at [facility] N/A: Spine Lumbar Spinal Graft Tech 01/14/2021 [id number] / [id number] / Medtronic Spinal Graft [id number] [place] Putty Filler 1cc Bone Void Demineralized Bone Matrix - [id number] - [id number] Implanted:Qty: 1 on 08/14/2018 by Rajesh Tay MD at [facility] N/A: Spine Lumbar Medtronic Spinal Graft 02/06/2021 [id number] / [id number] / Cage Spinal [id number] Modulus 10d Xl Wide Strl Ltxfre - [id number] - [id number] Implanted:Qty: 1 on 08/14/2018 by Rajesh Tay MD at [facility] N/A: Spine Lumbar Nuvasive Creative Spine Tech 02/11/2023 [id number] / [id number] / [id number] Depuy Spine [id number] Expedium 7mm 55mm 1 Innie Polyaxial Spine Screw Bone Titanium - [id number] Implanted:Qty: 4 on 08/16/2018 by Rajesh Tay MD at [facility] N/A: Spine Lumbar Depuy Spine [id number] / / Depuy Spine [id number] Expedium 7mm 50mm 1 Innie Polyaxial Spine Screw Bone Titanium - [id number] Implanted:Qty: 2 on 08/16/2018 by Rajesh Tay MD at [facility] N/A: Spine Lumbar Depuy Spine [id number] / / Depuy Spine [id number] Expedium 1 Inner Monoaxial Spine Screw Set Titanium - [id number] Implanted:Qty: 6 on 08/16/2018 by Rajesh Tay MD at [facility] N/A: Spine Lumbar Depuy Spine [id number] / / Depuy Spine [id number] Expedium 5.5mm 75mm Line Prebent Beto Spinal Titanium Nonsterile - [id number] Implanted:Qty: 2 on 08/16/2018 by Rajesh Tay MD at [facility] N/A: Spine Lumbar Depuy Spine [id number] / / Musculoskeletal Transplant [id number] Allograft Putty Freeze Dried Filler 5cc Bone Void Dbx - [id number] - [id number] Implanted:Qty: 1 on 08/16/2018 by Rajesh Tay MD at [facility] N/A: Spine Lumbar Musculoskeletal Transplant 04/24/2020 [id number] / [id number] / Procedures Procedure Name Priority Date/Time Associated Diagnosis Comments DEVICE CHECK - REMOTE Routine 12/10/2024 10:17 AM CDT Coronary artery disease involving mesa grande coronary artery of mesa grande heart without angina pectoris Pacemaker SSS (sick sinus syndrome) (HCC) High degree atrioventricular block CT LUNG CANCER SCREENING Schedule Routine, Read Routine (OP Routine) 05/06/2021 1:38 PM WEARING APPAREL ASSEMBLER History of tobacco abuse ABDOMINAL AORTA Schedule Routine, Read Routine (OP Routine) 05/06/2021 12:51 PM WEARING APPAREL ASSEMBLER History of tobacco abuse EGFR STAT 03/09/2021 3:00 PM CDT COLONOSCOPY 06/26/2020 8:41 AM WEARING APPAREL ASSEMBLER HEMOGLOBIN A1C Routine 08/10/2018 1:43 PM WEARING APPAREL ASSEMBLER Preop testing DIABETES FOOT EXAM Routine 03/20/2017 [...] the original result were not included. 12/11/2024 [employer] Quarterly Remote Device Check NOTE The following shows snippets from the complete quarterly report. The complete report in its entirety is attached to this Result Text in R[employer]er Periodic IEGM Detection Dec 11, 2024, 1:21:00 AM. Last in-office check: August 2024 Next in-office appointment: not scheduled Battery longevity = OK/75% AT/AF burden 0% Ap: 48% RVp: 89% No events this monitoring period Reviewed By Sirisha Garcia PRESCRIPTION CLERK LENSES at 1:46 PM Review and Recommendations below (please forward an in-basket message to your MA if check requires attention) us Brook Alaniz MD [facility] CARDIAC SERVICES PROCED URES Final Result * CT Lung Cancer Screening (05/06/2021 1:38 PM WEARING APPAREL ASSEMBLER) Anatomical Region Laterality Modality Chest N/A Computed Tomogra phy 05/06/2021 2:11 PM WEARING APPAREL ASSEMBLER Narrative 05/06/2021 2:21 PM WEARING APPAREL ASSEMBLER EXAM DESCRIPTION: CT LUNG CANCER SCREENING REASON [...] by Radha Diaz M.D. : Report ID: [id number] Reading Location: [id number] Procedure Note Radha Diaz MD - 05/06/2021 [...] by Radha Diaz M.D. : Report ID: [id number] Reading Location: [place] [address] us Kwadwo Roque MD IMG CT PROCEDURES Final R esult * US Abdominal Aorta (05/06/2021 12:51 PM WEARING APPAREL ASSEMBLER) Anatomical Region Laterality Modality Abdomen N/A Ultrasound 05/06/2021 1:06 PM WEARING APPAREL ASSEMBLER Narrative 05/06/2021 1:09 PM WEARING APPAREL ASSEMBLER EXAM DESCRIPTION: US ABDOMINAL AORTA REASON FOR [...] signed by Bryson ALVARADO: JENNY Report ID: [id number] Reading Location: [id number] Procedure Note Bryson Macias MD - 05/06/2021 [...] Bryson Macias M.D. JA: JENNY Report ID: [id number] Reading Location: [id number] us Kwadwo Roque MD IMG US PROCEDURES [...] LAB BLOOD ORDERABLES Final Re sult DOUG [facility]) [facility] Department of Laboratories [place], [place] [id number] * COLONOSCOPY (06/26/2020 8:41 AM WEARING APPAREL ASSEMBLER) Anatomical Region Laterality Modality Other Narrative Procedure Note Connor Patel MD - 06/26/2020 8:41 AM CST [facility] Patient Name: Musa Amaya Procedure Date: 06/26/2020 8:41 AM Date of : 1950 Admit Type: Outpatient Age: 70 Gender: Male Attending MD: Connor Patel M.D. Room: [facility] ENDOSCOPY ROOM 2 Note Status: Finalized Patient [...] The scopewas passed under direct vision. The [id number] was introduced through the anus andadvanced to [...] 8:41 AM Procedure Code(s): --- Professional --- 59095, Colonoscopy, flexible; diagnostic, including collection of specimen(s) by brushing or washing, when performed (separateprocedure) Diagnosis Code(s): --- Professional --- K64.9, Unspecified hemorrhoids CPT copyright 2017 [employer]. All rights reserved. The codes documented in this report are preliminary and upon exit booth agent reviewmay be revised to meet current compliance requirements. Recognized by the [employer] for promoting quality in endoscopy Connor Patel MD ENDOSCOPY PROCEDURES Final Re sult * (ABNORMAL) Hemoglobin A1c (08/10/2018 1:43 PM WEARING APPAREL ASSEMBLER) [facility] Hgb A1C 6.9(H) 4.0 - 5.6 % DOUG Estimated Average Glucose 151 mg/dL DOUG Comment: The ADA recommends reporting an estimated Average Glucose (eAG) with all Hemoglobin A1c results using the equation derived from a study of 507 normal and diabetic adults. Minority populations were underrepresented and children were not included. (Diabetes Care 31:0106-8674, 2008). The eAG is not equivalent to a fasting glucose. Blood specimen (specimen) 08/10/2018 1:43 PM WEARING APPAREL ASSEMBLER 08/10/2018 4:10 PM WEARING APPAREL ASSEMBLER Narrative DOUG - 08/10/2018 4:53 PM WEARING APPAREL ASSEMBLER Rajesh Tay MD LAB BLOOD ORDERABLES F inal Result DOUG [id number] Department [place] [address] * DIABETES FOOT EXAM (03/20/2017) [facility] Diabetic Foot Exam Normal Historical Provider HEALTH MAINTENANCE Final Result * (ABNORMAL) Lipid panel with reflex to direct LDL (03/11/2017 1:00 PM CDT) [facility] Cholesterol 146 100 - 200 mg/dL DOUG Comment: Interpretive Data Desirable: <200 mg/dL Borderline high: 200-239 mg/dL High: >240 mg/dL Current interpretive data was last revised on 2015. Triglycerides 332(H) 10 - 150 mg/dL DOUG MOTA Comment: Interpretive Data Desirable: < 150 mg/dL [...] Castillo MD LAB BLOOD ORDERABLES Final Result [facility] [address] Department [place] [address] * DIABETES EYE EXAM (09/15/2016) Pathologist [facility] Diabetic Eye Exam Unknown Historical Provider MD HEALTH MAINTENANCE Final Result * Serum Hepatitis C ab (02/16/2016 7:29 AM CDT) Pathologist [facility] HCV ab Negative Negative CDR HISTOR ICAL RESULTS Serum 02/16/2016 7:29 AM CDT Whitney Castillo MD LAB BLOOD ORDERABLES Final Result CDR HISTORICAL RESULTS from Last 3 Months or Most Recently Relevant to Health Maintenance Insurance MEDICARE MEDICARE [employer] MEDICARE SUPPLEMENT [employer] CLAIMS OFFICE MEDICARE Advance Directives For more information, please contact: [phone] * Full Code (Latest Code Status on [...] 5:37 PM 05/31/2019 7:35 PM Care Teams Associate Professor Of Library Science Relationship Specialty Start Date End Date Kwadwo Roque MD PCP - General Family Practice 03/01/21
[2024-12-16 18:36] LABS: Alanine Aminotransferase 22 U/L (6-50); Albumin Level 4.5 g/dL (3.5-5.1); Alkaline Phosphatase 43 U/L (38-126); Anion Gap 11 mmol/L (4-12); Aspartate Amino Transferase 51 U/L (17-59); Bilirubin,Total 0.2 mg/dL (0.2-1.3); Blood Urea Nitrogen 30 mg/dL (9-20); Calcium 9.5 mg/dL (8.4-10.2); Carbon Dioxide 22 mmol/L (22-30); Chloride 108 mmol/L (98-107); Cholesterol 108 mg/dL (0-200); Estimated Glomerular Filt Rate 38; Glucose 143 mg/dL (65-110); HDL Direct 30 mg/dL; Potassium 5.0 mmol/L (3.4-5.0); Sodium 141 mmol/L (137-145); Total Protein 8.1 g/dL (6.3-8.2); Triglycerides 292 mg/dL (<150)
[2024-12-16 18:51] LABS: Hemoglobin A1C 6.2 % (<5.7)
[2024-12-16 19:09] LABS: MALB Creatinine Ratio 21.7 mg/g (0-30)
[2024-12-16 19:11] LABS: Prostate Specific Antigen 1.0 ng/mL (< OR = 4.0)
== END 2024-12-16 09:20 | disposition home or self-care (01) ==
PROVIDERS: PCP Nurse Practitioner Adult Health; Visit Provider Nurse Practitioner Adult Health
DX: Z12.5 Encounter for screening for malignant neoplasm of prostate (principal); E11.9 Type 2 diabetes mellitus without complications; N52.9 Male erectile dysfunction, unspecified
CPT/HCPCS: 36415; 80053; 80061; 82043; 82565; 83036; 84153; G0103

== ENCOUNTER 2025-04-01 11:44 | Outpatient (CLI) | payer MEDICARE, SELFPAY ==
--- NOTE | ~2025-04-01 | CT_ITS ---
CT HEAD NON-CONTRAST Clinical History: R20.0 - Anesthesia of skin Comparison: CT brain 02/23/2021 Technique: Unenhanced axial images skull base to vertex Coronal, sagittal reformats CT images acquired with automatic exposure control for dose reduction DLP: 605 mGy-cm Findings: Mild white matter changes, typically chronic microvascular ischemic disease Sulci, ventricles: Unremarkable. No intracerebral hemorrhage. No evidence acute territorial infarct. No mass effect, midline shift. Bony calvarium intact. Visualized paranasal sinuses: Mild sphenoid disease. Mastoid air cells: Fluid, left side worse. IMPRESSION: 1. No acute intracranial findings. Reviewed, dictated and finalized at location R.
--- OUTSIDE RECORDS SUMMARY | 2025-04-01 13:50 | XMS_ITS | Clinical Summary ---
Author Organization [facility] Address [address] [place] [address] Care Team Providers Care Needle Punch Machine Operator Name Role Phone Kwadwo Roque MD Primary Care Provider [phone] Allergies No known active allergies Medications lancets [...] (03/09/2021): Added automatically from request for surgery [id number] Syncope and collapse 03/02/2021 Overview (03/17/2021): Cardiac monitoring showed high-grade AV block. Status post Biotronik Edora 8 DRT on 10 March 2021 (RL). Personal history of colonic polyps 05/14/2020 Overview (05/14/2020): Added automatically from request for surgery [id number] Pre-op chest exam 05/14/2020 Overview (05/14/2020): Added automatically from request for surgery [id number] Arthritis of left knee 04/09/2020 Assessment & Plan (04/09/2020 3:42 PM STRAW BALER): Patient has moderate arthritis of the knee with reactive synovitis. He has prominence of the tibial tubercle and may have chronic patella tendinitis. After reviewing the treatment options patient elected undergo a cortisone injection today. He tolerated the procedure well. History of colon polyps 05/23/2019 Overview (05/23/2019): Added automatically from request for surgery [id number] Screen for colon cancer 05/23/2019 Overview (05/23/2019): Added automatically from request for surgery [id number] s/p XLIF L3-4 and L4-5 on 05/2019, [...] (09/09/2016): Hyperlipidemia Coronary artery disease invo lving shungnak coronary artery of [place] heart without angina pectoris 10/19/2013 Overview (09/07/2016): CAD (coronary artery disease) Type 2 diabetes mellitus with hyperglycemia 04/06 Overview (09/08/2016): Type II diabetes mellitus Chronic bronchitis 01/24/2013 Overview (09/08/2016): Chronic bronchitis Hypertension 03/12/2012 Overview (09/08/2016): Hypertension Chest pain Type 2 diabetes mellitus with other specified co mplication Class 2 obesity without serious comorbidity in a dult Encounters Date Type Department Care Team Description 03/20/2025 Telephone [place] [facility] at [address] [place] [address] Raya Osuna MA 03/12/2025 12:30 PM CDT Ancillary Procedure [place] [facility] [id number] [facility] [address] [place] [address] Coronary artery disease involving sh[place] coronary artery of [place] heart without angina pectoris; Pacemaker; SSS (sick sinus syndrome) (HCC); High degree atrioventricular block 03/12/2025 Orders Only [place] [facility] [id number] [address] Karyn Lagunas, EARL High degree atrioventricular block (Primary Dx); SSS (sick sinus syndrome) (HCC); Pacemaker; Pacemaker reprogramming/check from Last 3 Months Immunizations Immunization Administration [...] pain, turned tractor Hx Other Medical silent DC Hyperlipidemia Hyperlipidemia Hx Other Medical left eye catara ct sx 10/17.; Comments: AAW 10/30/2014 - Chest pain 11/08/2016 AM[facility] Mild CAD 11/09/2016 30% LAD Sleep apnea Hypertension Type 2 diabetes mellitus Arthritis Family History Medical History Relation Name [...] on file Legal Sex Male 7:41 PM STRAW BALER Gender Identity Not on file Sexual Orientation [...] Done Comments Albumin Creatinine Ratio, Urine 1950 Dilated Eye Exam 09/15/2017 09/15/2016 Well Visit 65+ 12/14/2017 12/14/2016 Lipid Panel 03/11/2018 03/11/2017, 11/04, 11/09/2016, Additional history exists Foot Exam 03/20/2018 03/20/2017, 08/05/2016 Hemoglobin A1C 02/10/2019 08/10/2018, 06/0 01/2018, 03/11/2017, Additional history exists Depression Screening 05/30/2020 05/30/2019, 07/30/2018, 03/20/2017, Additional history exists DTaP/Tdap/Td Vaccine (2 - Td or Tdap) 08/10/2021 08/11/2011 eGFR 03/09/2022 03/09/2021, 05/06, 08/17/2018, Additional history exists Fall Risk Assessment 03/11/2022 03/11/2021 Lung Cancer Screening 05/06/2022 05/06/2021 , 01/15/2018, 12/23/2016 Colon Cancer Screening-Colonoscopy 06/26/2022 06/26/2020, 06/10/2019, 07/18/2016, Additional history exists Influenza Vaccine (#1) 2025 , 03/25/2020, 05/31/2019, Additional history exists Hepatitis C Screening Completed 02/16/2016 Hepatitis B Screening Completed 03/09/2018 , 03/20/2017, 03/11/2017 Colon Cancer Screening-CT Colonography Discontinued 06/26/2020, 06/10/2019, 07/18/2016, Additional history exists Colon Cancer Screening-DNA Stool Discontinued 06/26/2020, 06/10/2019, 07/18/2016, Additional history exists Colon Cancer Screening-FIT Discontinued 06/26, 06/10/2019, 07/18/2016, Additional history exists Colon Cancer Screening-Sigmoidoscopy Discontinued 06/26/2020, 06/10/2019, 07/18/2016, Additional history exists Pneumococcal vaccine 65+ Completed 021, 11/04/2015, 10/18/2012 Abdominal Aortic Aneurysm (A AA) Screen Completed 05/06/2021, 11/28/2015 Zoster Vaccine Completed 09/17/2024, 06/17/2024 Medical Devices Implanted Type Area Inspector Plug Seam Device Identifier Shelf Expiration Date Model / Serial / Lot Biotronik Inc [id number] Endocardial Pacing Lead Promri Solia Jt 45 - [id number] - [id number] Implanted:Qty: 1 on 03/10/2021 by Ben Casillas MD at [facility] Lead Biotronik Inc 01/02/2023 [id number] / [id number] / Biotronik Inc [id number] Endocardial Pacing Lead Promri Solia T 53 - [id number] - [id number] Implanted:Qty: 1 on 03/10/2021 by Ben Casillas MD at [facility] Lead Biotronik Inc 10/02/2022 [id number] 80 / [id number] / Biotronik Inc [id number] Edora Promri [id number] Dual Chamber Rate Adaptive Unipolar Bipolar - [id number] - [id number] Implanted:Qty: 1 on 03/10/2021 by Ben Casillas MD at [facility] Pacemaker Biotronik Inc 06/04/2022 [id number] 45 / [id number] / Medtronic Sofamor Danek [id number] Infuse 14mm 23mm Absorbable Sponge Sterile Water Syringe Needle - [id number] Implanted:Qty: 1 on 08/14/2018 by Rajesh Tay MD at [facility] N/A: Spine Lumbar Medtronic Sofamor Danek 08/02/2020 [id number] / / [id number] Spacer Spinal [id number] 10d Xl Wide Peek Lordotic - [id number] - [id number] Implanted:Qty: 1 on 08/14/2018 by Rajesh Tay MD at [facility] N/A: Spine Lumbar Nuvasive Creative Spine Tech [id number] / [id number] / Spinal Graft Tech [id number] Stanislaus Putty Jar Graft 5cc Bone Demineralized Bone Matrix - [id number] - [id number] Implanted:Qty: 1 on 08/14/2018 by Rajesh Tay MD at [facility] N/A: Spine Lumbar Spinal Graft Tech 01/14/2021 [id number] / [id number] / Medtronic Spinal Graft [id number] Stanislaus Putty Filler 1cc Bone Void Demineralized Bone Matrix - [id number] - [id number] Implanted:Qty: 1 on 08/14/2018 by Rajesh Tay MD at [facility] N/A: Spine Lumbar Medtronic Spinal Graft 02/06/2021 [id number] / [id number] / Cage Spinal [id number] Modulus 10d Xl Wide Strl Ltxfre - [id number] - [id number] Implanted:Qty: 1 on 08/14/2018 by Rajesh Tay MD at [facility] N/A: Spine Lumbar Nuvasive Creative Spine Tech 02/11/2023 [id number] / [id number] / [id number] Depuy Spine [id number] Expedium 7mm 55mm 1 Innie Polyaxial Spine Screw Bone Titanium - [id number] Implanted:Qty: 4 on 08/16/2018 by Rajesh Tay MD at [facility] N/A: Spine Lumbar Depuy Spine [id number] / / Depuy Spine [id number] Expedium 7mm 50mm 1 Innie Polyaxial Spine Screw Bone Titanium - [id number] Implanted:Qty: 2 on 08/16/2018 by Rajesh Tay MD at [facility] N/A: Spine Lumbar Depuy Spine [id number] / / Depuy Spine [id number] Expedium 1 Inner Monoaxial Spine Screw Set Titanium - [id number] Implanted:Qty: 6 on 08/16/2018 by Rajesh Tay MD at [facility] N/A: Spine Lumbar Depuy Spine [id number] / / Depuy Spine [id number] Expedium 5.5mm 75mm Line Prebent Beto Spinal Titanium Nonsterile - [id number] Implanted:Qty: 2 on 08/16/2018 by Rajesh Tay MD at [facility] N/A: Spine Lumbar Depuy Spine [id number] / / Musculoskeletal Transplant [id number] Allograft Putty Freeze Dried Filler 5cc Bone Void Dbx - [id number] - [id number] Implanted:Qty: 1 on 08/16/2018 by Rajesh Tay MD at [facility] N/A: Spine Lumbar Musculoskeletal Transplant 04/24/2020 [id number] / [id number] / Procedures Procedure Name Priority Date/Time Associated Diagnosis Comments DEVICE CHECK - REMOTE Routine 03/12/2025 8:02 AM CDT Coronary artery disease involving [place] coronary artery of [place] heart without angina pectoris Pacemaker SSS (sick sinus syndrome) (HCC) High degree atrioventricular block CT LUNG CANCER SCREENING Schedule Routine, Read Routine (OP Routine) 05/06/2021 1:38 PM STRAW BALER History of tobacco abuse US ABDOMINAL AORTA Schedule Routine, Read Routine (OP Routine) 05/06/2021 12:51 PM STRAW BALER History of tobacco abuse EGFR STAT 03/09/2021 3:00 PM CDT COLONOSCOPY 06/26/2020 8:41 AM STRAW BALER HEMOGLOBIN A1C Routine 08/10/2018 1:43 PM STRAW BALER Preop testing DIABETES FOOT EXAM Routine 03/20/2017 LIPID PANEL WITH REFLEX TO DIRECT LDL Routine 03/11/2017 1:00 PM CDT Hyperlipidemia, unspecified hyperlipidemia type DIABETES EYE EXAM Routine 09/15/2016 SERUM HEPATITIS C AB Routine 02/16/2016 7:29 AM CDT from Last 3 Months or Most Recently Relevant to Health Maintenance Results * DEVICE CHECK - REMOTE (03/12/2025 8:02 AM CDT) Anatomical Region Laterality Modality Other Narrative 03/17/2025 9:29 AM CDT Images from the original result were not included. 03/12/2025 [place] quarterly remote device check NOTE The following shows snippets from the complete quarterly report. The complete report in its entirety is attached to this Result Text in Counter Former Presenting EGM Last in-office check 12/08/2023 last checked by Rep 02/11/2025 ?? where Next in-office check-not scheduled (messaged Raya @ [facility] to schedule patient for an annual ov w/device check) DC PPM, implanted 03/10/2021 Battery longevity = 70% AT/AF burden 0% Ap 43% RVp 87% No event episodes or alerts were recorded since last Rep check on 02/11/2025. Device Nurse Review and Recommendations below Reviewed By Sirisha Garcia RN BSN at 1:22 PM Review and Recommendations below (please forward an in-basket message to your MA if check requires attention) us Brook Alaniz MD [facility] PROCED URES Final Result * CT Lung Cancer Screening (05/06/2021 1:38 PM STRAW BALER) Anatomical Region Laterality Modality Chest N/A Computed Tomogra phy 05/06/2021 2:11 PM STRAW BALER Narrative 05/06/2021 2:21 PM STRAW BALER EXAM DESCRIPTION: CT LUNG CANCER SCREENING REASON [...] by Radha Diaz M.D. : Report ID: [id number] Reading Location: [id number] Procedure Note Radha Diaz MD - 05/06/2021 [...] by Radha Diaz M.D. : Report ID: [id number] Reading Location: [id number] us Kwadwo Roque MD IMG CT PROCEDURES Final R esult * US Abdominal Aorta (05/06/2021 12:51 PM STRAW BALER) Anatomical Region Laterality Modality Abdomen N/A Ultrasound 05/06/2021 1:06 PM STRAW BALER Narrative 05/06/2021 1:09 PM STRAW BALER EXAM DESCRIPTION: US ABDOMINAL AORTA REASON FOR [...] Bryson Macias M.D. JA: JENNY Report ID: [id number] Reading Location: [id number] Procedure Note Bryson Macias MD - 05/06/2021 [...] Bryson Macias M.D. JA: JENNY Report ID: [id number] Reading Location: [id number] us Kwadwo Roque MD IMG US PROCEDURES [...] LAB BLOOD ORDERABLES Final Re sult DOUG [facility]) [address] [facility] Department [place] [address] * COLONOSCOPY (06/26/2020 8:41 AM STRAW BALER) Anatomical Region Laterality Modality Other Narrative Procedure Note Connor Patel MD - 06/26/2020 8:41 AM CST [facility] Patient Name: Musa Amaya Procedure Date: 06/26/2020 8:41 AM Date of : 1950 Admit Type: Outpatient Age: 70 Gender: Male Attending MD: Connor Patel M.D. Room: [facility] ENDOSCOPY ROOM 2 Note Status: Finalized Patient [...] The scopewas passed under direct vision. The [id number] was introduced through the anus andadvanced to [...] 8:41 AM Procedure Code(s): --- Professional --- 61696, Colonoscopy, flexible; diagnostic, including collection of specimen(s) by brushing or washing, when performed (separateprocedure) Diagnosis Code(s): --- Professional --- K64.9, Unspecified hemorrhoids CPT copyright 2017 [employer]. All rights reserved. The codes documented in this report are preliminary and upon certified coder reviewmay be revised to meet current compliance requirements. Recognized by the [employer] for promoting quality in endoscopy Connor Patel MD ENDOSCOPY PROCEDURES Final Re sult * (ABNORMAL) Hemoglobin A1c (08/10/2018 1:43 PM STRAW BALER) Hgb A1C 6.9(H) 4.0 - 5.6 % DOUG MOTA Estimated Average Glucose 151 mg/dL DOUG MOTA Comment: The ADA recommends reporting an estimated Average Glucose (eAG) with all Hemoglobin A1c results using the equation derived from a study of 507 normal and diabetic adults. Minority populations were underrepresented and children were not included. (Diabetes Care 31:7396-5798, 2008). The eAG is not equivalent to a fasting glucose. Blood specimen (specimen) 08/10/2018 1:43 PM STRAW BALER 08/10/2018 4:10 PM STRAW BALER Narrative DOUG - 08/10/2018 4:53 PM STRAW BALER Rajesh Tay MD LAB BLOOD ORDERABLES F inal Result DOUG [address] Department [place] [address] * DIABETES FOOT EXAM (03/20/2017) Pathologist [facility] Diabetic Foot Exam Normal Historical Provider HEALTH MAINTENANCE Final Result * (ABNORMAL) Lipid panel with reflex to direct LDL (03/11/2017 1:00 PM CDT) Cholesterol 146 100 - 200 mg/dL DOUG MOTA Comment: Interpretive Data Desirable: <200 mg/dL Borderline [...] HDL 33(L) 40 - 59 mg/dL DOUG MOTA Comment: Interpretive Data Less than 40 mg/dL - Low; A major risk factor for heart disease. Greater than or equal to 60 mg/dL - High; Considered protective of heart disease. Current interpretive data was last revised on 2015. LDL, calculated 47(L) 60 - 129 mg/dL DOUG MOTA Comment: Interpretive Data Optimal: < 100 mg/dL Near Optimal: 100 - 129 mg/dL Borderline High: 130 - 159 mg/dL High: > 160 mg/dL Current interpretive data was last revised on 2015. Chol/HDL ratio 4 mg/dL DOUG Blood specimen (specimen) 03/11/2017 1:00 PM CDT 03/11/2017 1:00 PM CDT Result [facility] Whitney Castillo MD LAB BLOOD ORDERABLES Final Result [facility] [address] [address] Department [place] [address] * DIABETES EYE EXAM (09/15/2016) Diabetic Eye Exam Unknown Result [facility] Historical Provider MD HEALTH MAINTENANCE Final Result * Serum Hepatitis C ab (02/16/2016 7:29 AM CDT) HCV ab Negative Negative CDR HISTOR ICAL RESULTS Serum 02/16/2016 7:29 AM CDT Result [facility] Whitney Castillo MD LAB BLOOD ORDERABLES Final Result CDR HISTORICAL RESULTS from Last 3 Months or Most Recently Relevant to Health Maintenance Insurance MEDICARE MEDICARE HUMAN MEDICARE SUPPLEMENT [employer] CLAIMS OFFICE MEDICARE Advance Directives For more information, please contact: [phone] * Full Code (Latest Code Status on [...] 5:37 PM 05/31/2019 7:35 PM Care Teams Needle Punch Machine Operator Relationship Specialty Start Date End Date Kwadwo Roque MD PCP - General Family Practice 03/01/21
== END 2025-04-01 11:45 | disposition home or self-care (01) ==
PROVIDERS: PCP Nurse Practitioner Adult Health; Visit Provider Nurse Practitioner Adult Health
DX: R20.0 Anesthesia of skin (principal)
CPT/HCPCS: 70450

== ENCOUNTER 2025-04-24 12:21 | Outpatient (CLI) | payer MEDICARE, SELFPAY ==
--- NOTE | ~2025-04-24 | US_ITS ---
EXAM/PROCEDURE: US renal BI HISTORY: N18.31 - Chronic kidney disease, stage 3a COMPARISON: None available. TECHNIQUE: Renal ultrasound performed FINDINGS: Right kidney: 9.9 x 5.7 x 5.2 cm No hydronephrosis or large masses. Cystic structure seen measuring 1.2 x 1.4 x 1.1 cm in the midpole region. Left kidney: 10.4 x 6.1 x 5.9 cm. The left kidney appears normal. Limited images of the urinary bladder with no gross acute abnormality. IMPRESSION: 1.4 x 1.2 cm cyst in the right ovary. Otherwise unremarkable kidneys. Reviewed, dictated and finalized at location A. 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
== END 2025-04-24 12:22 | disposition home or self-care (01) ==
LOC: ANHIMG 12:22
PROVIDERS: PCP Nurse Practitioner Adult Health; Visit Provider Internal Medicine Nephrology
DX: N18.31 Chronic kidney disease, stage 3a (principal); N28.1 Cyst of kidney, acquired
CPT/HCPCS: 76770